=== PATIENT | male | born 1970 | race Caucasian/White ===

== ENCOUNTER 2016-11-11 19:32 | Emergency (ER) | payer OTHER ==
[~2016-11-11] VITALS: Ht 180.3 cm; Wt 84.7 kg
[2016-11-11 19:34] VITALS: TEMP 36.8; Ht 180.3 cm; Wt 84.7 kg
[2016-11-11] MEDS ORDERED: XYLOCAINE 1%/SOD BICARB 20 ML VIAL INFIL ONE (20:00)
[2016-11-11] MEDS ORDERED: CEPHALEXIN 500MG HOME PACK 1 EA BTL PO ONE (20:00)
--- NOTE | 2016-11-11 20:41 | DIAGNOSTIC IMAGING REPORT ---
HEAD WITHOUT CONTRAST (CT) CLINICAL HISTORY: 46 years-old Male with CHI, large forehead lac. TECHNIQUE: Multiple axial CT images of the head were obtained without contrast. A dose lowering technique was utilized adhering to the principles of ALARA. CT DOSE: 1647.88 mGycm COMPARISON: None. FINDINGS: No acute intracranial hemorrhage, midline shift, mass, large territorial ischemia or abnormal extra-axial collection. The calvarium is intact. The mastoid air cells, and middle ear cavities are clear.There is mild mucosal thickening of the ethmoid air cells and right maxillary sinus. Laceration of the central and right paracentral prefrontal soft tissues is noted with several radiopaque foreign bodies seen measuring up to 2-3 mm. There is moderate forehead and nasal bridge soft tissue swelling. Additionally, there is an apparent right nasal bone fracture, only partially imaged. IMPRESSION: 1. No acute intracranial abnormality. 2. Central and right paracentral frontal scalp laceration with several radiopaque foreign bodies measuring up to 2-3 mm. No calvarial fracture. 3. Apparent partially imaged right nasal bone fracture. The above report was generated using voice recognition software. It may contain grammatical, syntax or spelling errors. Electronically signed by: Joo Raza M.D. 11/11/2016 8:40 PM Dictated Date/Time: 11/11/2016 8:36 PM
[2016-11-11] MEDS ORDERED: CEPH500C PO (21:08)
--- NOTE | 2016-11-11 21:10 | EMERGENCY ROOM VISIT NOTE ---
History First contact with patient: 19:39 Chief Complaint: LACERATION/CUT (SUT/DERMABOND) Stated Complaint: HEAD WOUND/GASH TO [facility] Nursing Triage Summary: Pt was in the [place] and went to take a step, slipped and hit head off of rock. History of Present Illness The patient is a 46 year old male who presents to the Emergency Room with complaints of a large forehead laceration after splitting it wide open well getting into a pool tonight. 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 When he went to step into the backyard pool, he slipped and fell, hitting his head on a sharp rock. The patient denies any loss of consciousness or neck pain. He does report a mild frontal headache rated a 3 out of 10. Tetanus immunization is up-to-date. Review of Systems 10 system review was performed and was negative except for pertinent positives and negatives as indicated in history of present illness Past Medical/Surgical History Medical Problems: (1) Alcohol Abuse-Unspec (2) Bipolar Affective Nos Surgical Problems: (1) No history of previous surgery Family History Unremarkable Social History Smoking Status: Former Smoker Alcohol Use: occasionally Marital Status: Housing Status: lives with family Occupation Status: employed Current/Historical Medications Scheduled Cephalexin Monohydrate (Keflex), 500 MG PO TID Physical Exam Vital Signs Date Time Temp Pulse Resp B/P (MAP) Pulse Ox O2 Delivery O2 Flow Rate FiO2 11/11/16 19:34 36.8 91 20 172/97 98 Room Air Physical Exam CONSTITUTIONAL: Healthy and well nourished. Alert and oriented X 3 with positive affect. GCS 15. HEENT: Examination shows a large 8 cm vertical forehead laceration measuring. Pupils equal, round and reactive. No epistaxis, soak and abdominal hemorrhage, raccoon's eyes, Schmid sign or hemotympanum. NECK: Full active range of motion without discomfort. MUSCULOSKELETAL: Full range of motion of all joints without discomfort. INTEGUMENTARY: No rash or other significant dermatologic conditions noted. NEUROLOGIC: Cranial nerves II-XII grossly intact. No focal neurologic deficits noted. No ataxia. No pronator drift. Medical Decision & Procedures ER Provider Diagnostic Interpretation: Noncontrast CT of the head does not show any intracranial bleed or skull fracture. Several radiopaque foreign bodies are noted in the wound. A possible nasal bone fracture is also noted. Radiologist report is as follows: HEAD WITHOUT CONTRAST (CT) CLINICAL HISTORY: 46 years-old Male with CHI, large forehead lac. TECHNIQUE: Multiple axial CT images of the head were obtained without contrast. A dose lowering technique was utilized adhering to the principles of ALARA. CT DOSE: 1647.88 mGycm COMPARISON: None. FINDINGS: No acute intracranial hemorrhage, midline shift, mass, large territorial ischemia or abnormal extra-axial collection. The calvarium is intact. The mastoid air cells, and middle ear cavities are clear.There is mild mucosal thickening of the ethmoid air cells and right maxillary sinus. Laceration of the central and right paracentral prefrontal soft tissues is noted with several radiopaque foreign bodies seen measuring up to 2-3 mm. There is moderate forehead and nasal bridge soft tissue swelling. Additionally, there is an apparent right nasal bone fracture, only partially imaged. IMPRESSION: 1. No acute intracranial abnormality. 2. Central and right paracentral frontal scalp laceration with several radiopaque foreign bodies measuring up to 2-3 mm. No calvarial fracture. 3. Apparent partially imaged right nasal bone fracture. Procedure Laceration repair was performed under local anesthesia after receiving verbal consent from the patient. Using buffered 1% lidocaine without epinephrine, good local anesthesia was administered. The wound was peripherally cleansed with iodine, then copiously pressure irrigated with normal saline. The patient did have several small rocks near the margin of the wound that were removed. Further exploration of the wound does not show any underlying foreign debris. No underlying galea laceration noted. There was good hemostasis. The wound was then approximated using a combination of 5-0 and 6-0 nylon simple interrupted sutures 11. Bacitracin pressure dressing was applied. ED Course Patient history and physical exam were performed. Nurse's notes were reviewed. Vital signs were reviewed, showing a blood pressure of 172/97. Noncontrast CT of the head was normal. Laceration repair was performed under local anesthesia. The patient was provided a home pack and prescription for Keflex. He was encouraged to take ibuprofen and Tylenol as needed for pain. Suture removal in 5-7 days, or seek reevaluation sooner for any signs of wound infection. Return to the emergency department for any significantly worsening headache, vomiting, unusual drowsiness, coordination problems or other symptoms related to this head injury. The patient was happy with plan of care, and denied any significant discomfort at the time of discharge. Medical Decision Head Trauma GCS Score: 15 Blood Pressure Screening Patient's blood pressure: Normal blood pressure Impression Primary Impression: Laceration of face, complicated Additional Impression: Nasal bone fracture Departure Information Prescriptions Cephalexin Monohydrate (Keflex) 500 Mg Cap 500 MG PO TID for 7 Days, #21 CAP Prov: Raffaele Zavala PA 11/11/16 Referrals No Doctor, Assigned (PCP) Patient Instructions [facility] Problem Qualifiers Primary Impression: Laceration of face, complicated Encounter type: initial encounter Qualified Codes: S01.81XA - Laceration without foreign body of other part of head, initial encounter Additional Impression: Nasal bone fracture Encounter type: initial encounter Fracture type: closed Qualified Codes: S02.2XXA - Fracture of nasal bones, initial encounter for closed fracture
[2016-11-11 21:16] VITALS: BP 122/70; PULSE 88; O2SAT 98
[2016-12-01] MEDS ORDERED: DPKEC500 PO (09:16)
[2016-12-01] MEDS ORDERED: RISP-99 PO (09:16)
== END 2016-11-11 21:17 | disposition home or self-care (01) ==
LOC: C.EDB 19:34 → C.EDD 21:17
DX: S01.81XA Laceration without foreign body of other part of head, initial encounter (principal); S02.2XXA Fracture of nasal bones, initial encounter for closed fracture; W19.XXXA Unspecified fall, initial encounter; F10.10 Alcohol abuse, uncomplicated; F31.9 Bipolar disorder, unspecified; Z87.891 Personal history of nicotine dependence

== ENCOUNTER 2016-11-16 19:05 | Emergency (ER) | payer OTHER ==
[~2016-11-16] VITALS: Ht 180.3 cm; Wt 82.6 kg
[~2016-11-16 19:05] MED LIST: CEPH500C PO
[2016-11-16 19:12] VITALS: Ht 180.3 cm; Wt 82.6 kg
[2016-11-16] MEDS ORDERED: IBUP-103 PO (19:28)
[2016-11-16 20:05] LABS: BASO % 0.5 %; BASO ABS # 0.03 K/uL (0-0.2); COMPLETE YES; EOS % 4.5 %; HEMATOCRIT 41.4 % (42-52); IG% 0.2 %; LYMPH % 31.2 %; LYMPH ABS # 1.81 K/uL (1.2-3.4); MEAN CELL VOLUME 87.5 fL (80-100); MEAN CORPUSCULAR HEMOGLOBIN 30.4 pg (25-34); MEAN CORPUSCULAR HGB CONC 34.8 g/dl (32-36); MEAN PLATELET VOLUME 9.2 fL (7.4-10.4); NEUT % 53.6 %; PLATELET COUNT 249 K/uL (130-400); RED BLOOD COUNT 4.73 M/uL (4.7-6.1); WHITE BLOOD COUNT 5.81 K/uL (4.8-10.8)
[2016-11-16] MEDS ORDERED: MoRPHine SULFATE 4 MG/ML 1 ML CARP\\VIAL IV STA ×2 (20:11→22:26)
[2016-11-16] MEDS ORDERED: ONDANSETRON INJ 2 MG/ML 2 ML VIAL IV STA (20:11)
[2016-11-16 20:21] LABS: BUN/CREATININE RATIO 18.6 (10-20); CALCIUM 9.4 mg/dl (8.5-10.1); POTASSIUM 3.5 mmol/L (3.5-5.1)
[2016-11-16] MEDS ORDERED: OPTIRAY 320 IV PRN (21:30)
--- NOTE | 2016-11-16 21:39 | DIAGNOSTIC IMAGING REPORT ---
FACIAL-MAXILLOFACIAL WITH CLINICAL HISTORY: Increasing signs of infection over R frontal area. COMPARISON STUDY: Head CT November 11, 2016. TECHNIQUE: Axial images through the face were obtained following intravenous injection of 115 cc of Optiray 320 IV. Coronal and sagittal reformats were viewed. FINDINGS: Visualized portions of the intracranial contents are unremarkable. Mastoid air cells are clear. There is mild polypoid mucosal thickening within the maxillary sinuses. Orbits are unremarkable. There are multiple dental caries and absent teeth. There is an age indeterminate mildly displaced right nasal bone fracture. Note is made of interval increase in frontal soft tissue swelling since CT of November 11, 2016 at site of laceration. Immediately deep to this laceration, there has been interval development of a 3.9 x 3.5 x 1.2 cm fluid collection. This collection has at most minimal rim enhancement. A few associated radiodensities measure up to 3 mm and suggest foreign bodies. There is no soft tissue gas. No additional fluid collections are present. Globes are intact. IMPRESSION: 1. Increase in frontal soft tissue swelling with interval development of a 3.9 x 3.5 x 1.2 cm subcutaneous fluid collection at site of laceration shown on head CT of November 11, 2016. At most, minimal peripheral enhancement of this collection. Sterility of this collection cannot be assessed by CT and this could reflect an abscess or sterile fluid collection. A few associated radiodensities, measuring up to 3 mm, are suggestive of foreign bodies. 2. Age indeterminate minimally displaced right nasal bone fracture. Electronically signed by: Pancho Allan M.D. 11/16/2016 9:38 PM Dictated Date/Time: 11/16/2016 9:26 PM
[2016-11-16] MEDS ORDERED: AMPICILLIN/SULBACTAM SOD INJ 3,000 MG in SODIUM CHLORIDE 0.9% 100ML 100 ML IV STA (21:49)
[2016-11-16] MEDS ORDERED: LIDOCAINE/EPINEPHRINE 1% 20 ML VIAL INFIL ONE (22:30)
[2016-11-16] MEDS ORDERED: CIPROFLOXACIN 500MG HOME PACK PO ONE (23:15)
[2016-11-16] MEDS ORDERED: CIPR1TAB10 PO (23:23)
[2016-11-16] MEDS ORDERED: HYDR-5688 PO (23:23)
[2016-11-16 23:27] VITALS: TEMP 37
[2016-11-16] MEDS ORDERED: MoRPHine SULFATE 4 MG/ML 1 ML CARP\\VIAL IV PRN (23:30)
--- NOTE | 2016-11-17 00:28 | CONSULTATION REPORT ---
DATE OF CONSULTATION: 11/16/2016 I was consulted by the Emergency Department for evaluation of this patient. HISTORY OF PRESENT ILLNESS: He is a 46-year-old male, who presented to the Emergency Department, initially, 5 days ago after sustaining a fall. 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 He states he slipped on a rock and was waist deep in water when he slipped and fell, striking his head on a rock. At that time, he presented to the Emergency Department for evaluation and had head CT, which showed age-indeterminant nasal fracture, but otherwise, no sternal bone fractures. He underwent a washout and repair of a laceration, which measured approximately 10 cm, of his forehead and was started on Keflex. He states that he went home following this and took the Keflex, drank some Budweiser and used Motrin to help with pain symptoms. However, today he started noticed sitting fevers and chills and shakiness as well as significant swelling of the forehead. He states he was able to apply pressure to the area and express some purulent-type material. He has received a dose of Unasyn in the ER. REVIEW OF SYSTEMS: As above and positive for fevers and chills as well as skin infection. NKDA No medications other than Tylenol or Motrin prn, Keflex as prescribed by ER PAST MEDICAL HISTORY: Includes alcohol abuse and bipolar disorder. PAST SURGICAL HISTORY: There is no prior surgical history, other than repair of this laceration. SOCIAL HISTORY: He states that he uses alcohol, but is a nonsmoker and does not use any drugs. He works as a contractor. PHYSICAL EXAMINATION: GENERAL: Shows a 46-year-old male, in no acute distress. He appears healthy. afebrile, pulse 82, BP 157/102 HEAD AND NECK EXAMINATION: Shows an approximately 8-cm vertical laceration extending over the right eyebrow. There is a large approximately 5-cm area of induration with significant fluctuance and surrounding erythema. The sutures appear intact. PSYCHIATRIC: He is awake, alert and oriented. DATA: Review of the CT scan, initially, following the injury as well as today's scan shows that there may be some small 2-mm radiopaque foreign bodies located in the wound. Possible nasal fracture. Otherwise, no head injury or skull fracture. Today's CT scan also shows a sizable fluid collection, about 3.5 x 1.5 cm, questionably an abscess versus hematoma or other fluid collection. LABORATORY STUDIES: White blood cell count is 5.8, hemoglobin 14. Creatinine 1. IMPRESSION: Abscess, status post a traumatic forehead laceration. PLAN: The plan was discussed with the Emergency Department physician and physician's commercial assistant. He has received a dose of Unasyn already. Discussed whether washout in the operating room versus an attempted bedside washout would be appropriate. Given that the laceration repair, overall, seems quite good and there is a well-defined collection, I feel it would be reasonable to attempt a bedside drainage. Verbal consent was obtained from the patient. PROCEDURE NOTE: The skin was prepped with Betadine and drapes were placed. 1% lidocaine with epinephrine was used to anesthetize the area. Upon injection of local anesthesia, already there was some release of purulent material. I removed three of the cephalad and two of the caudad sutures, which allowed for copious amounts of purulent drainage. A culture was obtained. A hemostat was used to spread open the collection and copious pus was drained. At this point, a pulse vehicle delivery worker was used to copiously irrigate the wound under pressure from both open ends of the laceration. A quarter inch piece of Nu Gauze was then passed through the abscess cavity, leaving a wick at each end. An Optifoam dressing was then placed. The procedure was tolerated well. I discussed with the ER physician having the patient receive an additional dose of Unasyn today. He should follow up in my office on Thursday to have the packing removed. We also discussed sending him home on an additional antibiotic, such as Cipro, to cover any waterborne types of bacteria, such as aeromonas. We also discussed whether fully opening the laceration and attempting to look for foreign bodies was feasible and in most cases, these are very difficult to remove and therefore, I felt irrigation under pressure would be a reasonable option. All of the patient's questions were answered. He was satisfied with the care and will follow up with us in the office on Thursday. RYLAND
--- NOTE | 2016-11-17 00:31 | EMERGENCY ROOM VISIT NOTE ---
ED Visit Note First contact with patient: 19:20 Pt seen/examined at bedside. Evidence of erythema/edema surrounding laceration from recent head injury. I discussed the case with the primary PA on several occasions and then examined the pt at bedside. I assisted the plastic surgeon with wound irrigation and placement of a wick to help with drainage. Pt to be observed for a few hours to get a repeat dose of IV antibiotics and then will be discharged to follow-up with Dr. Palomares on Thursday.
[2016-11-17] MEDS ORDERED: AMPICILLIN/SULBACTAM SOD INJ 3,000 MG in SODIUM CHLORIDE 0.9% 100ML 100 ML IV ONE (04:15)
[2016-11-17 04:54] VITALS: BP 137/81; PULSE 71; O2SAT 96
--- NOTE | 2016-11-17 23:53 | EMERGENCY ROOM VISIT NOTE ---
ED Visit Note First contact with patient: 19:20 Chief Complaint: I think my laceration is infected and I been having drainage out of it. History of Present Illness: Mr. Dobbs is a 46-year-old white male who relates into the ED accompanied by his mother complaining of a possible wound infection. Patient reports 5 days ago he slipped and fell in a local [place] and struck his head on a rock. He sustained a large right frontal laceration. He came to the emergency department and was examined. An CAT scan of the head was performed that shows no signs of head injury or fractures. His 10 cm laceration was repaired. He was discharged home in stable condition on Keflex for antibiotic coverage. Patient reports since being discharged he has noted some increasing swelling and tenderness to the area of his laceration. Today he started having chills and has a self proceed fever. He bent forward and saw small amount of drainage out of the wound and then applied pressure and reported he is able to express a large amount of purulent material. This is associated with an increasing pain in the area of his laceration. He describes that as a throbbing and pressure sensation. He rates his discomfort 7 /10. His pain is nonradiating. His pain worsens with palpation of his laceration and immediate area around his laceration. He has not identified any alleviating factors related to the pain. He has been taken ibuprofen with minimal relief of his discomfort. Associated with his pain he is also reporting that he has a mild headache in the same location. He denies dizziness, lightheadedness, abnormal neurological symptoms, difficult speaking, difficulty swallowing, difficulty ambulating, neck pain, chest pain, shortness of breath, abdominal pain, decreased appetite, nausea/vomiting. Review of Systems: As noted above in history of present illness. 8 body systems were reviewed and found to be negative as noted above. Past Medical History: Bipolar disorder. Current Medications: Ibuprofen. Allergies to Medications: Patient denies. Social History: Patient is currently employed; he feels safe in his home environment; he denies tobacco use; he admits to alcohol use. Physical Examination: Vital Signs: Date Time Temp Pulse Resp B/P (MAP) Pulse Ox O2 Delivery O2 Flow Rate FiO2 11/17/16 04:54 71 16 137/81 96 11/17/16 04:00 71 16 136/95 97 Room Air 11/17/16 01:59 80 16 141/92 97 Room Air 11/16/16 23:27 37.0 82 16 157/102 97 Room Air 11/16/16 19:12 36.7 93 18 149/102 97 Room Air GENERAL: 46-year-old male in mild to moderate distress due to pain, nontoxic- appearing, afebrile and hemodynamically stable. NEUROLOGICAL: Awake, alert and oriented to person, place and time. Answering questions appropriately and following commands. Normal gait. Good hand eye coordination. No focal motor sensory deficits. SKIN: Warm, dry and pink. Forehead: Patient's laceration is clean dry and intact. Surrounding the laceration specifically just medial and inferior to the laceration patient has a largest amount of swelling with erythema. This area is fluctuant and warm to the touch. HEENT: Skull: Atraumatic and normocephalic. No raccoon's eyes or waterman signs. No drainage from the ears or the nostril; no hemotympanum. Face: Please note above under SKIN. No bony deformity. No bony tenderness or crepitus. PERRLA. EOMI without nystagmus. Sclera white and conjunctiva pink. Airway is patent. Speech is normal. No local lymphadenopathy. Trachea midline. No jugular venous distention. BACK: No tenderness over the bony cervical spine. Full range of motion of the cervical spine. THORAX: Lungs sounds are clear to auscultation and equal bilaterally with symmetrical chest wall. ABDOMEN: Flat, soft and nontender. Positive bowel sounds in all quadrants. EXTREMITIES: Moves all extremities well on command and with purpose. All distal neurovascular statuses are intact and equal bilaterally. ED Course: Patient is assessed as noted above. Patient's medication list was reviewed. Laboratory Testing: Test 11/16/16 19:45 Range/Units White Blood Count 5.81 4.8-10.8 K/uL Red Blood Count 4.73 4.7-6.1 M/uL Hemoglobin 14.4 14.0-18.0 g/dL Hematocrit 41.4 42-52 % Mean Corpuscular Volume 87.5 80-100 fL Mean Corpuscular Hemoglobin 30.4 25-34 pg Mean Corpuscular Hemoglobin Concent 34.8 32-36 g/dl Platelet Count 249 130-400 K/uL Mean Platelet Volume 9.2 7.4-10.4 fL Neutrophils (%) (Auto) 53.6 % Lymphocytes (%) (Auto) 31.2 % Monocytes (%) (Auto) 10.0 % Eosinophils (%) (Auto) 4.5 % Basophils (%) (Auto) 0.5 % Neutrophils # (Auto) 3.12 1.4-6.5 K/uL Lymphocytes # (Auto) 1.81 1.2-3.4 K/uL Monocytes # (Auto) 0.58 0.11-0.59 K/uL Eosinophils # (Auto) 0.26 0-0.5 K/uL Basophils # (Auto) 0.03 0-0.2 K/uL RDW Standard Deviation 42.2 36.4-46.3 fL RDW Coefficient of Variation 13.0 11.5-14.5 % Immature Granulocyte % (Auto) 0.2 % Immature Granulocyte # (Auto) 0.01 0.00-0.02 K/uL Sodium Level 140 136-145 mmol/L Potassium Level 3.5 3.5-5.1 mmol/L Chloride Level 105 98-107 mmol/L Carbon Dioxide Level 31 21-32 mmol/L Anion Gap 4.0 3-11 mmol/L Blood Urea Nitrogen 19 7-18 mg/dl Creatinine 1.00 0.60-1.40 mg/dl Est Creatinine Clear Calc Drug Dose 97.2 ml/min Estimated GFR () 103.4 Estimated GFR (Non- 89.2 BUN/Creatinine Ratio 18.6 10-20 Random Glucose 90 70-99 mg/dl Calcium Level 9.4 8.5-10.1 mg/dl Gram Stain and Culture: Pending. Blood Cultures: Pending. Facial CT with IV Contrast: Was reviewed by myself and read by the radiologist and shows Increased frontal soft-tissue selling with interval development of 3.9 x 3.5 x 1.2 cm subcutaneous fluid collection with minimal peripheral enhancement. Additionally noted were few associated radio opaque densities measuring up to 3 millimeters suggestive of foreign bodies. Radiologist also notes an age and her tenderness lead displaced right nasal bone fracture that was seen on previous. An IV lock was initiated and patient was hydrated with normal saline and he received a total of 8 mg of morphine IV for pain, 4 mg of Zofran IV and 3 g of Unasyn IV for antibiotic coverage. Patient was reassessed multiple times during his stay in the emergency department. Patient's case was reviewed with Dr. Ferris; she in apparently assessed the patient we agreed on diagnostic approach, treatment, disposition and plan. Patient's case was consulted with Dr. Trixie Palomares, plastic surgery/facial surgery; she came to the emergency department to see the patient and performed an drainage and irrigation procedure to the patient. Patient stayed in the emergency department for a couple hours and received a second dose of 3 g of Unasyn IV for antibiotic coverage. Patient was educated about today's findings and instructed on his treatment plan ; he verbalized understanding and agreement with this plan. Clinical Impression: Wound infection. Disposition: Patient was discharged home in stable condition accompanied by his mother; prior to departure he was reassessed and subjectively reported he was feeling much better and rated his discomfort 2/10. Plan: Comfort measures were discussed with the patient including a sliding pain medication scale of ibuprofen, acetaminophen and [place]; appropriate narcotic precautions were discussed with the patient and his name was checked on state database and no red flags were noted. Patient was prescribed ciprofloxacin 500 mg 2 times a day for 7 days and he was encouraged to continue his Keflex until completed. Patient was encouraged to keep his bandaging in place until follow-up with Dr. Palomares. Patient is encouraged to contact Dr. Palomares's office for follow-up visit this Thursday. Patient was educated on signs of infection and encouraged return ED for any worsening signs of infection or any new/concerning symptoms.
--- NOTE | 2016-11-20 11:13 | Pharmacy Progress Note ---
ED Pharmacist Culture FollowUp Date of Service: Nov 20, 2016. Wound culture of forehead laceration is growing 2 organisms: aeromonas hydrophila grp and serratia fonticola. He was seen in the ER on 11/16 for fever, chills, erythema and induration of forehead + purulent material expressed from laceration. Abscess was drained in ER and he was placed on Cipro 500mg PO BID x 7 days in addition to continuing Keflex 500mg PO BID. He was to f/u with Romero Palomares on which he did. On the f/u visit the erythema and induration had improved but was still draining purulent material. Another wick was placed at that visit and he was admitted to [facility] for mental health evaluation. At this time he is still admitted to [facility] receiving Keflex + Cipro. The current abx therapy should cover the organisms growing in this culture. Therefore no further action required from ED perspective at this point.
[2016-12-01] MEDS ORDERED: DPKEC500 PO (09:16)
[2016-12-01] MEDS ORDERED: RISP-99 PO (09:16)
== END 2016-11-17 04:54 | disposition home or self-care (01) ==
LOC: C.EDB 19:06 → C.EDA 11-17 04:54
DX: L02.811 Cutaneous abscess of head [any part, except face] (principal); T81.4XXA Infection following a procedure, initial encounter; Y84.8 Other medical procedures as the cause of abnormal reaction of the patient, or of later complication, without mention of misadventure at the time of the procedure

== ENCOUNTER 2016-11-18 18:05 | Inpatient (IN) | payer OTHER ==
[~2016-11-18] VITALS: Ht 180.3 cm; Wt 79.5 kg
[~2016-11-18 18:05] MED LIST changes: +CIPR1TAB10 PO; +HYDR-5688 PO; +IBUP-103 PO
--- NOTE | 2016-11-18 19:00 | EMERGENCY ROOM VISIT NOTE ---
History Report prepared by Angela: Magdalene Lewis Under the Supervision of: Dr. Carmita Villeda M.D. First contact with patient: 18:35 Chief Complaint: MENTAL HEALTH EVALUATION Stated Complaint: [facility] History of Present Illness The patient is a 46 year old male who presents to the Emergency Room with complaints of generalized illness beginning this morning. The patient states he "is done talking and sick of this". The patient states he had trouble finding the doctors office this morning which caused him to "flip out". He also notes that he is having an overall global aching, abdominal pain and denies eating all day. He states that he was at the ED a week ago after he hit his head from a fall. He also states he got "blood infection" from the head injury. The patient states he has a history of anxiety. The patient states that "if he didn' t believe in God he would be ". The patient denies thinking about hurting himself. He states his girlfriend has told him to go to counseling. The patient states in the past when he was given pain medication he "self medicated" by mixing his pain medications with drinking. The patient denies seeing a psychiatrist and states that he's "been beating himself up mentally". Source of History: patient Onset: this morning Position: other (generalized) Timing: other (persistent) Associated Symptoms: + abdominal pain Note: Pt denies eating all day.Pt denies thinking about hurting himself. Review of Systems See HPI for pertinent positives & negatives. A total of 10 systems reviewed and were otherwise negative. Past Medical & Surgical Medical Problems: (1) Alcohol Abuse-Unspec (2) Bipolar Affective Nos (3) Bipolar disorder, unspecified (4) Cannabis abuse (5) Laceration (6) Opiate misuse Surgical Problems: (1) No history of previous surgery Social History Problems: (1) Alcohol abuse Family History no pertinent family history stated Social History Smoking Status: Current Every Day Smoker Alcohol Use: occasionally Marital Status: Housing Status: lives with family Occupation Status: employed Current/Historical Medications Scheduled Cephalexin (Keflex), 1 CAP PO BID Ciprofloxacin Hcl (Cipro), 500 MG PO BID Ibuprofen Tab (Advil), 400-600 MG PO Q6H Scheduled PRN Hydrocodone/Acetaminophen 5MG/325MG ([place] 5MG/325MG), 1-2 TABLET PO Q6H PRN for Pain Allergies Coded Allergies: Dust (Verified Allergy, Unknown, 11/18/16) Physical Exam Vital Signs Date Time Temp Pulse Resp B/P (MAP) Pulse Ox O2 Delivery O2 Flow Rate FiO2 11/18/16 20:20 102 18 124/95 98 Room Air 11/18/16 18:10 36.7 71 20 151/85 96 Room Air Physical Exam Vital signs reviewed. General: Well-appearing male, in no significant distress. HEENT: No scleral icterus, PERRLA, neck supple. Laceration with sutures in place to forehead, mild erythema, bandage in place. Cardiovascular: Regular rate and rhythm, no extra sounds. Pulmonary: Clear to auscultation bilaterally, normal work of breathing. Abdomen: Soft, nontender, nondistended, positive bowel sounds. Musculoskeletal: Atraumatic, no peripheral edema. Neurologic: Patient awake alert and oriented x 3, full strength in all 4 extremities. Cranial nerves 2 through 12 grossly intact. Skin: Warm, dry, no rash Psych: Denies homicidal and suicidal ideation, Pt states he's "in trouble." Medical Decision & Procedures Laboratory Results 11/18/16 19:20 Red Blood Count 4.99, Mean Corpuscular Volume 85.8, Mean Corpuscular Hemoglobin 30.3, Mean Corpuscular Hemoglobin Concent 35.3, Mean Platelet Volume 9.0, Neutrophils (%) (Auto) 62.1, Lymphocytes (%) (Auto) 26.9, Monocytes (%) (Auto) 8.0, Eosinophils (%) (Auto) 2.6, Basophils (%) (Auto) 0.2, Neutrophils # (Auto) 3.12, Lymphocytes # (Auto) 1.35, Monocytes # (Auto) 0.40, Eosinophils # (Auto) 0.13, Basophils # (Auto) 0.01 11/18/16 19:20 Test 11/18/16 18:15 11/18/16 19:20 Urine Color YELLOW Urine Appearance CLEAR (CLEAR) Urine pH 5.5 (4.5-7.5) Urine Specific [place] 1.023 (1.000-1.030) Urine Protein NEG (NEG) Urine Glucose (UA) NEG (NEG) Urine Ketones NEG (NEG) Urine Occult Blood NEG (NEG) Urine Nitrite NEG (NEG) Urine Bilirubin NEG (NEG) Urine Urobilinogen NEG (NEG) Urine Leukocyte Esterase NEG (NEG) Urine Opiates Screen POS (NEG) Urine Methadone, Qualitative NEG (NEG) Urine Barbiturates NEG (NEG) Urine Phencyclidine (PCP) Level NEG (NEG) Ur Amphetamine/Methamphetamine NEG (NEG) MDMA (Ecstasy) Screen NEG (NEG) Urine Benzodiazepines Screen NEG (NEG) Urine Cocaine Metabolite NEG (NEG) Urine Marijuana (THC) NEG (NEG) White Blood Count 5.02 K/uL (4.8-10.8) Red Blood Count 4.99 M/uL (4.7-6.1) Hemoglobin 15.1 g/dL (14.0-18.0) Hematocrit 42.8 % (42-52) Mean Corpuscular Volume 85.8 fL (80-100) Mean Corpuscular Hemoglobin 30.3 pg (25-34) Mean Corpuscular Hemoglobin Concent 35.3 g/dl (32-36) Platelet Count 236 K/uL (130-400) Mean Platelet Volume 9.0 fL (7.4-10.4) Neutrophils (%) (Auto) 62.1 % Lymphocytes (%) (Auto) 26.9 % Monocytes (%) (Auto) 8.0 % Eosinophils (%) (Auto) 2.6 % Basophils (%) (Auto) 0.2 % Neutrophils # (Auto) 3.12 K/uL (1.4-6.5) Lymphocytes # (Auto) 1.35 K/uL (1.2-3.4) Monocytes # (Auto) 0.40 K/uL (0.11-0.59) Eosinophils # (Auto) 0.13 K/uL (0-0.5) Basophils # (Auto) 0.01 K/uL (0-0.2) RDW Standard Deviation 40.3 fL (36.4-46.3) RDW Coefficient of Variation 12.9 % (11.5-14.5) Immature Granulocyte % (Auto) 0.2 % Immature Granulocyte # (Auto) 0.01 K/uL (0.00-0.02) Anion Gap 5.0 mmol/L (3-11) Est Creatinine Clear Calc Drug Dose 97.2 ml/min Estimated GFR () 103.4 Estimated GFR (Non- 89.2 BUN/Creatinine Ratio 14.7 (10-20) Calcium Level 9.3 mg/dl (8.5-10.1) Total Bilirubin 1.1 mg/dl (0.2-1) Direct Bilirubin 0.2 mg/dl (0-0.2) Aspartate Amino Transf (AST/SGOT) 23 U/L (15-37) Alanine Aminotransferase (ALT/SGPT) 30 U/L (12-78) Alkaline Phosphatase 67 U/L (45-117) Total Protein 7.6 gm/dl (6.4-8.2) Albumin 3.5 gm/dl (3.4-5.0) Thyroid Stimulating Hormone (TSH) 1.160 uIu/ml (0.300-4.500) Salicylates Level < 1.7 mg/dl (2.8-20) Acetaminophen Level < 2 ug/ml (10-30) Ethyl Alcohol mg/dL < 3.0 mg/dl (0-3) Laboratory results per my review. ED Course 184: Past medical records reviewed. The patient was evaluated in room A7. A complete history and physical examination was performed. 2199: Patient was admitted to [facility] acute care. Medical Decision Differential diagnosis: Etiologies such as mood disorder, infection, hypoglycemia, electrolyte abnormalities, cardiac sources, intracerebral event, toxicologic, neurologic, as well as others were entertained. This pt was evaluated and felt to be in need of evaluation. He was medically cleared and evaluated by the psych embedded case manager. Pt was accepted by for admission on a voluntary basis. Medication Reconcilliation Current Medication List: was personally reviewed by me Blood Pressure Screening Patient's blood pressure: Normal blood pressure Blood pressure disposition: Did not require urgent referral Impression Primary Impression: Mood disorder Scribe Attestation The scribe's documentation has been prepared under my direction and personally reviewed by me in its entirety. I confirm that the note above accurately reflects all work, treatment, procedures, and medical decision making performed by me. Departure Information Dispostion Mental [facility] Acute Care Referrals Rayshawn Rehman M.D. (PCP) Forms HOME CARE DOCUMENTATION FORM, IMPORTANT VISIT INFORMATION Patient Instructions My [facility]
[2016-11-18 19:11] LABS: URINE APPEARANCE CLEAR (CLEAR); URINE BILIRUBIN NEG (NEG); URINE COLOR YELLOW; URINE NITRITE NEG (NEG); URINE PH 5.5 (4.5-7.5); URINE SPECIFIC GRAVITY 1.023 (1.000-1.030); UROBILINOGEN NEG (NEG); ZZUR CULT IF INDIC CLEAN CATCH NO
[2016-11-18 19:12] LABS: MANUAL MICROSCOPIC REQUIRED? NO; REVIEW REQ? NO
[2016-11-18 19:43] LABS: BENZODIAZEPINE, URINE NEG (NEG); COCAINE,URINE NEG (NEG); PHENCYCLIDINE, URINE NEG (NEG)
[2016-11-18 19:48] LABS: BASO % 0.2 %; BASO ABS # 0.01 K/uL (0-0.2); COMPLETE YES; EOS % 2.6 %; HEMATOCRIT 42.8 % (42-52); IG% 0.2 %; LYMPH % 26.9 %; LYMPH ABS # 1.35 K/uL (1.2-3.4); MEAN CELL VOLUME 85.8 fL (80-100); MEAN CORPUSCULAR HEMOGLOBIN 30.3 pg (25-34); MEAN CORPUSCULAR HGB CONC 35.3 g/dl (32-36); NEUT % 62.1 %; PLATELET COUNT 236 K/uL (130-400); RED BLOOD COUNT 4.99 M/uL (4.7-6.1); WHITE BLOOD COUNT 5.02 K/uL (4.8-10.8)
[2016-11-18 20:06] LABS: BUN/CREATININE RATIO 14.7 (10-20); CALCIUM 9.3 mg/dl (8.5-10.1); POTASSIUM 3.8 mmol/L (3.5-5.1)
[2016-11-18 20:17] LABS: THYROID STIMULATING HORMONE 1.16 uIu/ml (0.300-4.500)
[2016-11-18 20:24] LABS: ACETAMINOPHEN < 2 ug/ml (10-30)
[2016-11-18] MEDS ORDERED: NURSING VERBAL MED ORDER ONE (22:00)
[2016-11-18 22:10] VITALS: O2SAT 99
[2016-11-18] MEDS ORDERED: ALUMINUM/MAGNESIUM SUSP 30 ML UDC PO PRN (22:30)
[2016-11-18] MEDS ORDERED: MAGNESIUM HYDROXIDE SUSP 30 ML UDC PO PRN (22:30)
[2016-11-18] MEDS ORDERED: SODIUM CHLORIDE 0.65% NA SOLN 45 ML (OCEAN) PRN (22:30)
[2016-11-18] MEDS ORDERED: BISMUTH SUBSALICYLATE PER ML OMNICELL CHARGE PO PRN (22:30)
[2016-11-18] MEDS ORDERED: hydrOXYzine HCL 25 MG TAB PO PRN ×2 (22:30)
[2016-11-18] MEDS ORDERED: ACETAMINOPHEN 325 MG TAB PO PRN (22:30)
[2016-11-18] MEDS ORDERED: RISPERIDONE 1 MG TAB PO ONE (22:45)
[2016-11-18] MEDS: CIPROFLOXACIN 500 MG TAB PO SCH (22:46)
[2016-11-18] MEDS: CEPHALEXIN MONOHYDRATE 500 MG CAP PO SCH (22:47)
[2016-11-18] MEDS: IBUPROFEN 200 MG TAB PO PRN (22:49)
[2016-11-18 23:24] VITALS: BP 126/72; PULSE 84; TEMP 36.7; BMI 24.4
[2016-11-19 07:09] VITALS: BP_SYST 117; BP_SYST 120; BP_SYST 126; BP_DIAS 72; BP_DIAS 81; PULSE 56; PULSE 78; PULSE 84; TEMP 36.4
[2016-11-19 07:14] VITALS: Ht 180.3 cm; Wt 79.5 kg
--- NOTE | 2016-11-19 08:52 | Psychiatric History & Physical ---
History Date of Service Nov 19, 2016. Identifying Data Patient is a 46 year old male who currently lives in [place] with girlfriend , has a history of bipolar disorder, noncompliance, and polysubstance abuse, is not currently in psychiatric treatment, and presented to the emergency room with police. He endorsed suicidal thoughts with a plan to hang himself and was admitted on a 201 voluntary commitment. Chief Complaint "Just toxl-ptb-aills, been going on my whole life". History of Present Illness Figueroa has had multiple emergency room visits in the past week, initially seen on 11/11 after he slipped in a knik and hit his head and sustained a 10 cm laceration on his forehead, which was sutured and he was started on Keflex. He then returned to the ER 11/16 with forehead swelling, purulent discharge, fever, chills, and shakes, and reported that he been drinking beer. He was seen by Dr. Trixie Palomares, plastic surgeon; his forehead had a 5 cm area of induration with significant fluctuance and surrounding erythema, but sutures were intact, so it was drained at the bedside. Wound culture was obtained, and results show gram-negative bacilli. Blood cultures 2 show pulmonary results of no growth. He was given IV antibiotics in the emergency room, given a prescription for Cipro 500 mg twice a day for 7 days and instructed to complete the course of Keflex as well. He was to follow-up with the plastic surgeon, Dr. Trixie Palomares yesterday, but then re-presented to the emergency room yesterday with police for a mental health evaluation. It was unclear exactly what occurred that resulted in police being called. He reported anxiety, and said that "if he didn't believe in God he would be ," and said he had been "beating himself up mentally". He said he had "self medicated" by mixing his pain medications with drinking in the past. He said his memory wasn't clear and it is a struggle for him to focus. He said he had become distraught when he could not locate the plastic surgeon's office for his follow-up appointment, and said he "got mad and took my shirt off because it was hot. I was having a bad day. I just lost it." He reports being in and out of long-term during his 20's and maybe 30's for "stupid stuff, drinking and being young and stupid." Currently, patient is on no psychiatric medications with no active providers. He currently has no insurance and no benefits from his employer and states he had tried to fill out paperwork in the past, but "it just never happened". He could not recall all of the medications that he tried, but he states he has never taking anything consistently because he did not like the side effects of the medications. Denies any other medical issues and said "I don't like doctors and wouldn't go to them anyways, but my girlfriend wants me to get some help". He was cooperative with the admission interview, but struggled to stay on topic and then stated he didn't want to talk about his history any more. Refused to sign SHASHANK's on admission, saying "If you want information, get it off facebook like everyone else." Agreed to take risperdal 1 mg in hopes it would help with sleep. Reports decreased sleep, due to restlessness, struggles with concentration due to racing thoughts, but reports good appetite. He admitted to drinking beer ("self medicating a couple days a week"), and smoking marijuana , last use on 11/15/2016. His drug screen was positive for opiates. He was noted to be pressured and tangential, but denied hallucinations and thoughts of harming others. He took risperidone 1 mg last night, and slept 5-1/2 hours. Today, the patient was seen in his room where he remains in bed. He is more organized than yesterday, but remains a limited historian. He states that he has struggled with mood lability all his life, and has never wanted treatment, as "this is just me, everyone says I need meds, but I don't think so." He reports frequent mood swings between depressed, euthymic mood, and irritable mood, but is unable to state how often this occurs. He endorses worsening mood recently, in the context of multiple stressors, stating he is hopeless, has negative thoughts, says "the aunts are stacked against you, it is not can get any better, I'm just getting older." Stressors include legal problems, including a felony charge she says he received 13 years ago, claiming he was "set up." He states his father in 1970, and he never had a father figure growing up, his 14-year-old son is doing drugs and getting in trouble, and although he's working, he does not make enough money and there is financial strain. He said "everyone thinks I'm crazy," and goes back and forth between stating he needs to get help, saying "I can't do it on my own, I need help," and stating he does not want treatment. He says he has no idea why he is in the hospital, "just went to the doctor's office and they act like a had a conniption or something." He says he does not know why police were called or why they brought him to the hospital. He says his mother went with him to his plastic surgery appointment yesterday, and he became upset when he could not locate the correct doctor's office. He also says it was very hot out, and he was feeling overwhelmed. He says he was having trouble thinking, and could not fill out the paperwork in the doctor's office. He says he actually saw the doctor, but then the police came and took him to the police station, and then brought him here. He understands he's been diagnosed with bipolar disorder, and describes "roller coaster moods," with frequent highs and lows. He reports poor sleep recently, states he "fights it," and stays up late watching TV. He says his girlfriend has been encouraging him to get treatment, and admits that he's had suicidal thoughts, stating he's had them all his life, and they come and go. He believes in God which is protective, and states "if I didn't believe in God, I'd actually go through with it." He is not sure if he is willing to accept treatment, stating "I'd treat myself, I do therapy for myself , I'm outdoorsy, an adrenaline junkie." He also says "I got to do something about it, can't do it on my own." Spoke with Dr. Palomares who states the patient was agitated and disorganized in their office yesterday, was unable to fill out paperwork, was throwing things and making suicidal statements. He left abruptly, and they then saw him outside walking through the bushes without a shirt on. They had called police, and they accompanied him back into the office where she changed his packing. He initially refused to come to the ER, so they took him to the police station. Past Psychiatric History Current OP Treatment: no current treatment Prior OP Treatment: no prior treatment (patient states that he never followed up with outpatient treatment after his past hospitalizations) Prior Psych Hospitalizations: [facility] (1985), [facility] ( 2002 and 1995) Access to a Gun: Yes (patient states he does have a gun at home, and other family members have guns which he has access to) Suicide Attempts: Yes (He does report one suicide attempt by overdose, but cannot recall any others. ) Past Medication Trials Depakote, escitalopram, paroxetine, sertraline - never took any medications for a significant period of time Additional Notes Previously diagnosed with bipolar disorder not otherwise specified and alcohol dependence Past Medical/Surgical History (1) Laceration (2) Cannabis abuse (3) Opiate misuse (4) Alcohol abuse Allergies Allergies: Coded Allergies: Dust (Verified Allergy, Unknown, 11/18/16) Home Medications Scheduled Cephalexin (Keflex), 1 CAP PO BID Ciprofloxacin Hcl (Cipro), 500 MG PO BID Ibuprofen Tab (Advil), 400-600 MG PO Q6H Scheduled PRN Hydrocodone/Acetaminophen 5MG/325MG ([place] 5MG/325MG), 1-2 TABLET PO Q6H PRN for Pain Family History History of Suicide: No History of Substance Abuse: Yes (son abuses drugs) Psychiatric History: No Alcohol Use Alcohol Use In Past 12 Months: Yes ("Couple days per week," can drink up to a case of beer or a fifth of liquor. Denies a history of withdrawal symptoms.) AUDIT Total Score: 7 Smoking Use Smoking Status: Former Smoker Substance History Smokes marijuana, last use 4 days ago, will not state how frequently he uses. Has a history of abusing pain medications, mixing them with alcohol. Personal History Lives in: [place] with his girlfriend of 1 year Childhood: Born in [place]. Father when he was 1-year-old due to a motorcycle accident. His father's family was initially involved in his life, but then withdrew, which was difficult for him. States that he did "whatever I wanted" growing up. Mother is alive and is supportive. Education: started high school (failed ninth grade, and then dropped out.) Work History: Works as a contractor. Relationship History: other (lives with girlfriend of 1 year) Children: 22-year-old daughter and 14-year-old son Spiritual Affiliation: "I believe in God" Legal History: reported (multiple arrests in the past, including terroristic threats, assault, and felony charges. Has been incarcerated for probation violation.) Psychological Trauma History: Significant Loss, Other (denies abuse) Review of Systems 10 systems reviewed; negative except as stated above. Examination Physical Examination A physical exam was performed in the ER prior to admission to the unit by Dr. Villeda. I accept that physical as correct/medical clearance for the inpatient physical exam. Vital Signs Vital Signs Past 12 Hours Date Time Temp Pulse Resp B/P (MAP) Pulse Ox O2 Delivery O2 Flow Rate FiO2 11/19/16 07:09 36.4 56 16 117/72 78 120/81 11/19/16 07:09 36.4 84 18 126/72 11/18/16 23:24 36.7 84 18 126/72 11/18/16 22:10 78 18 126/72 99 Room Air Laboratory Results Last 24 Hours Test 11/18/16 18:15 11/18/16 19:20 Urine Color YELLOW Urine Appearance CLEAR Urine pH 5.5 Urine Specific [place] 1.023 Urine Protein NEG Urine Glucose (UA) NEG Urine Ketones NEG Urine Occult Blood NEG Urine Nitrite NEG Urine Bilirubin NEG Urine Urobilinogen NEG Urine Leukocyte Esterase NEG Urine Opiates Screen POS Urine Methadone, Qualitative NEG Urine Barbiturates NEG Urine Phencyclidine (PCP) Level NEG Ur Amphetamine/Methamphetamine NEG MDMA (Ecstasy) Screen NEG Urine Benzodiazepines Screen NEG Urine Cocaine Metabolite NEG Urine Marijuana (THC) NEG White Blood Count 5.02 K/uL Red Blood Count 4.99 M/uL Hemoglobin 15.1 g/dL Hematocrit 42.8 % Mean Corpuscular Volume 85.8 fL Mean Corpuscular Hemoglobin 30.3 pg Mean Corpuscular Hemoglobin Concent 35.3 g/dl Platelet Count 236 K/uL Mean Platelet Volume 9.0 fL Neutrophils (%) (Auto) 62.1 % Lymphocytes (%) (Auto) 26.9 % Monocytes (%) (Auto) 8.0 % Eosinophils (%) (Auto) 2.6 % Basophils (%) (Auto) 0.2 % Neutrophils # (Auto) 3.12 K/uL Lymphocytes # (Auto) 1.35 K/uL Monocytes # (Auto) 0.40 K/uL Eosinophils # (Auto) 0.13 K/uL Basophils # (Auto) 0.01 K/uL RDW Standard Deviation 40.3 fL RDW Coefficient of Variation 12.9 % Immature Granulocyte % (Auto) 0.2 % Immature Granulocyte # (Auto) 0.01 K/uL Sodium Level 139 mmol/L Potassium Level 3.8 mmol/L Chloride Level 106 mmol/L Carbon Dioxide Level 28 mmol/L Anion Gap 5.0 mmol/L Blood Urea Nitrogen 15 mg/dl Creatinine 1.00 mg/dl Est Creatinine Clear Calc Drug Dose 97.2 ml/min Estimated GFR () 103.4 Estimated GFR (Non- 89.2 BUN/Creatinine Ratio 14.7 Random Glucose 94 mg/dl Calcium Level 9.3 mg/dl Total Bilirubin 1.1 mg/dl Direct Bilirubin 0.2 mg/dl Aspartate Amino Transf (AST/SGOT) 23 U/L Alanine Aminotransferase (ALT/SGPT) 30 U/L Alkaline Phosphatase 67 U/L Total Protein 7.6 gm/dl Albumin 3.5 gm/dl Thyroid Stimulating Hormone (TSH) 1.160 uIu/ml Salicylates Level < 1.7 mg/dl Acetaminophen Level < 2 ug/ml Ethyl Alcohol mg/dL < 3.0 mg/dl Mental Examination Appearance: disheveled, other (large bandage on forehead; malodorous) Eye contact is: fair Motor behavior is: no abnormal motor movements Speech: normal in rate, rhythm & volume, other (slightly pressured and hyperverbal) Affect: depressed, constricted Mood is: other ("up and down") Thought process: tangential Thought content: reality based without delusions Suicidal thought are: present, Plan: present, Intent: denied Homicidal thoughts are: denied Hallucinations: denies auditory, denies visual Cognition: language grossly intact, other (memory and attention are impaired) Intelligence estimated to be: consistent with level of education Insight: impaired Judgement: impaired Impression / Recommendations Impression 46-year-old white male who lives in [place] with his girlfriend, has a history of bipolar disorder not otherwise specified, treatment noncompliance, alcohol, cannabis, and opiate abuse, who presented to the emergency room with police for erratic behavior and was admitted voluntarily after he endorsed suicidal thoughts with a plan to hang himself. He also has a forehead laceration he sustained 8 days ago after he slipped and fell in a knik and hit his head, which became infected, and is being treated by Dr. Trixie Palomares. He does not currently have any outpatient psychiatric providers, does not take medications, and presents with mood lability, agitation, and suicidal thoughts. Inventory Assets Strengths: "I'm athletic, I can shoot." Risk Factors Assessment Male: Yes : Yes /single/: No Higher / Fall in social status: No Access to guns: Yes Health problems: Yes Mental Health Diagnoses: Yes Substance use disorders: Yes Previous attempt: Yes Family history of suicide: No Previous psychiatric stay: Yes Smoker: Yes Protective Factors Assessment Scientologist beliefs: Yes : No Responsible for young children: No Employed: Yes Stable relationships: Yes Supportive family: Yes Good rapport with provider: No Recommendations (1) Bipolar disorder, unspecified Patient has history of bipolar disorder, but has been noncompliant with outpatient treatment and medications. Would recommend Depakote, but he is not sure if he is willing to accept mood stabilizing medication at this time. We will continue risperidone 1 mg daily at bedtime, and we'll check fasting labs tomorrow. He will need ongoing education about his diagnosis and the risks of continued noncompliance with treatment. Recommend outpatient psychiatric follow-up and therapy. Recommend family meeting with girlfriend and mother. Need to ensure he will not of access to guns after discharge. Every 15 minute checks and encourage participation in unit groups and programming. Work on discharge safety plan. (2) Opiate misuse Patient was given a 4 day supply of [place] when he was seen in the emergency room. We will not continue this here, due to ongoing substance abuse and as it was intended for short-term treatment of pain. We will offer Tylenol and ibuprofen as needed. (3) Cannabis abuse Patient has been educated about the risks of ongoing cannabis use, including exacerbation of his mood disorder and psychotic symptoms, and the recommendations for abstinence. (4) Alcohol abuse The patient's AUDIT score and history suggest problematic drinking (Zone III WHO ). Brief intervention was offered and patient was poorly receptive. He minimizes his substance abuse, and is not willing to make changes. Intervention was greater than 5 min in length. Brief interventions include: 1. Assess Readiness to Quit, 2. Advise: Help Patient to Reduce or Abstain from Alcohol, 3. Agree: Set Specific, Feasible Goals, 4. Assist: Anticipate barriers, Problem-Solving Solutions. Social work to 5. Arrange: Referrals to appropriate treatment. Summary of intervention: The patient is in precontemplation stage with regards to transtheoretical model of change. The patient is advised to decrease alcohol consumption due to depressant effects and risk of interactions with prescription medications. The patient will be provided with recovery materials to continue to education self on how to cope with their condition without drinking. (5) Laceration Complete course of Keflex and Cipro. Discussed case with Dr. Trixie Palomares, who saw him in the emergency room and again yesterday, and she reports he will need a dressing change (wound care nurse consulted) tomorrow, continue antibiotics awaiting sensitivity, and will need sutures removed in 2 days. He will not likely need further plastic surgery follow up. CPT Code Initial Hospital Care: 27143 Problem Qualifiers (1) Bipolar disorder, unspecified: Active/Remission status: currently active Current bipolar episode type: mixed Current episode severity: severe Psychotic features: without psychotic features Qualified Codes: F31.63 - Bipolar disorder, current episode mixed, severe, without psychotic features
[2016-11-19] MEDS: CIPROFLOXACIN 500 MG TAB PO SCH ×2 (09:50→21:28)
[2016-11-19] MEDS: CEPHALEXIN MONOHYDRATE 500 MG CAP PO SCH ×3 (09:51→21:27)
[2016-11-19] MEDS ORDERED: CEPH-571 PO (10:12)
[2016-11-19] MEDS: RISPERIDONE 1 MG TAB PO SCH (21:28)
[2016-11-20 06:59] VITALS: BP_SYST 109; BP_SYST 120; BP_DIAS 68; BP_DIAS 78; PULSE 62; PULSE 83; TEMP 36.8
[2016-11-20 08:07] LABS: CHOLESTEROL/HDL RATIO 4.3
[2016-11-20] MEDS: CIPROFLOXACIN 500 MG TAB PO SCH ×2 (09:06→22:05)
[2016-11-20] MEDS: CEPHALEXIN MONOHYDRATE 500 MG CAP PO SCH ×3 (09:07→22:06)
--- NOTE | 2016-11-20 12:37 | Psychiatric Progress Notes ---
Progress Note Date of Service Nov 20, 2016. Interval History 46-year-old white male who lives in [place] with his girlfriend, has a history of bipolar disorder not otherwise specified, treatment noncompliance, alcohol, cannabis, and opiate abuse, who presented to the emergency room with police for erratic behavior and was admitted voluntarily after he endorsed suicidal thoughts with a plan to hang himself. He also has a forehead laceration he sustained 8 days ago after he slipped and fell [place] and hit his head, which became infected, and is being treated by Dr. Trixie Palomares. He does not currently have any outpatient psychiatric providers, does not take medications, and presents with mood lability, agitation, and suicidal thoughts. Chief Complaint "Better than when I came in.". Subjective Patient was seen & assessed interval progress reviewed with Treatment Team. The patient says that he feels better since admission, but has trouble explaining how. His thinking is tangential, as he jumps from topic to topic from money being behind medicine, to his grandmother being on pills to stay alive. He says that he doesn't like psych meds because they turn you into a Zombie, but when I remind him that he is taking Risperdal without being a zombie , he starts to laugh. He says that he needs something to "take the edge off it " realizing that he his life has been chaotic because he hasn't chosen to deal with it. He continues to say that he has SI that "come and go", but doesn't think he would ever act on it. He denies aud/vis hallucinations. We review his labs and he admits that he took someone else's pain meds for his head, which is why his drug screen is positive. Review of Systems Constitutional: No fever, No chills, No sweats, No weight loss, No weakness, No fatigue, No problem reported ENT: No hearing loss, No unusual epistaxis, No nasal symptoms, No sore throat, No tinnitus, No dental problems, No trouble swallowing, No problem reported Respiratory: No cough, No sputum, No wheezing, No shortness of breath, No dyspnea on exertion, No dyspnea at rest, No hemoptysis, No problem reported Cardiovascular: No chest pain, No orthopnea, No PND, No edema, No claudication , No palpitations, No problem reported Abdomen: No pain, No nausea, No vomiting, No diarrhea, No constipation, No GI bleeding, No problem reported Musculoskeletal: No joint pain, No muscle pain, No swelling, No calf pain, No problem reported Neurologic: No memory loss, No paralysis, No weakness, No numbness/tingling, No vertigo, No balance problems, No problem reported Psychiatric: + depression symptoms (with si) Integumentary: + problem reported (head wound with bandage) Sleep Information Total Hours of Sleep: 5.75 Meal Information Percent of Breakfast Consumed: 100 Percent of Lunch Consumed: 100 Percent of Dinner Consumed: 100 Mental Status Exam During interview pt is: alert and oriented, cooperative Appearance: disheveled, other (large bandage on forehead) Eye contact is: good Motor behavior is: no abnormal motor movements Speech: loud, other (slightly pressured and hyperverbal) Affect: depressed, labile, constricted Mood is: depressed, irritable, other ("up and down") Thought process: tangential Thought content: reality based without delusions Suicidal thought are: present, Plan: present, Intent: denied Homicidal thoughts are: denied Hallucinations: denies auditory, denies visual Cognition: language grossly intact, other (memory and attention are impaired) Intelligence estimated to be: consistent with level of education Insight: impaired Judgement: impaired Impression ADjusting well to the support and structure of the milieu and is cooperative with treatment. No side effects to meds. Will not increase Risperdal today, but have told him that if he is tolerating it tomorrow will increase to target racing thoughts. He would benefit from a mood stabilizer, but has false beliefs that all people on mood stabilizers are zombies and put on weight. Will continue to encourage. Plan (1) Bipolar disorder, unspecified Patient has history of bipolar disorder, but has been noncompliant with outpatient treatment and medications. Would recommend Depakote, but he is not sure if he is willing to accept mood stabilizing medication at this time. We will continue risperidone 1 mg daily at bedtime, and we'll check fasting labs tomorrow. He will need ongoing education about his diagnosis and the risks of continued noncompliance with treatment. Recommend outpatient psychiatric follow-up and therapy. Recommend family meeting with girlfriend and mother. Need to ensure he will not of access to guns after discharge. Every 15 minute checks and encourage participation in unit groups and programming. Work on discharge safety plan. 11/20 - Continue current meds. Will increase tomorrow if tolerating. (2) Opiate misuse Patient was given a 4 day supply of [place] when he was seen in the emergency room. We will not continue this here, due to ongoing substance abuse and as it was intended for short-term treatment of pain. We will offer Tylenol and ibuprofen as needed. (3) Cannabis abuse Patient has been educated about the risks of ongoing cannabis use, including exacerbation of his mood disorder and psychotic symptoms, and the recommendations for abstinence. (4) Alcohol abuse The patient's AUDIT score and history suggest problematic drinking (Zone III WHO ). Brief intervention was offered and patient was poorly receptive. He minimizes his substance abuse, and is not willing to make changes. Intervention was greater than 5 min in length. Brief interventions include: 1. Assess Readiness to Quit, 2. Advise: Help Patient to Reduce or Abstain from Alcohol, 3. Agree: Set Specific, Feasible Goals, 4. Assist: Anticipate barriers, Problem-Solving Solutions. Social work to 5. Arrange: Referrals to appropriate treatment. Summary of intervention: The patient is in precontemplation stage with regards to transtheoretical model of change. The patient is advised to decrease alcohol consumption due to depressant effects and risk of interactions with prescription medications. The patient will be provided with recovery materials to continue to education self on how to cope with their condition without drinking. (5) Laceration Complete course of Keflex and Cipro. Discussed case with Dr. Trixie Palomares, who saw him in the emergency room and again yesterday, and she reports he will need a dressing change (wound care nurse consulted) tomorrow, continue antibiotics awaiting sensitivity, and will need sutures removed in 2 days. He will not likely need further plastic surgery follow up. 11/20 Suture removal tomorrow 11/21 Visit Code E&M Code: 15589 Inventory Assets Strengths: "I'm athletic, I can shoot. Risk Factors Assessment Male: Yes : Yes /single/: No Higher / Fall in social status: No Health problems: Yes Mental Health Diagnoses: Yes Substance use disorders: Yes Previous attempt: Yes Family history of suicide: No Previous psychiatric stay: Yes Smoker: Yes Protective Factors Assessment Jewish beliefs: Yes : No Responsible for young children: No Employed: Yes Stable relationships: Yes Supportive family: Yes Good rapport with provider: No Data Vital Signs Last 24 Hrs: Date Time Temp Pulse Resp B/P (MAP) Pulse Ox O2 Delivery O2 Flow Rate FiO2 11/20/16 06:59 36.8 62 16 109/68 83 120/78 Meds Administered Last 24 Hrs: Meds Administered (Past 24Hrs) Medications (Trade) Dose Ordered Sig/[place] Route Start Time Stop Time Status Last Admin Dose Admin Cephalexin Monohydrate (Keflex Cap) 500 mg TID PO 11/18/16 22:30 11/25/16 14:01 11/20/16 09:07 500 MG Ciprofloxacin (Cipro Tab) 500 mg BID PO 11/18/16 22:30 11/25/16 09:01 11/20/16 09:06 500 MG Ibuprofen (Advil Tab) 400 mg Q8H PRN PO 11/18/16 22:45 12/18/16 22:44 11/18/16 22:49 400 MG Risperidone (Risperdal Tab) 1 mg NOW ONCE PO 11/18/16 22:45 11/18/16 22:46 DC 11/18/16 22:47 1 MG Risperidone (Risperdal Tab) 1 mg HS PO 11/19/16 22:00 12/19/16 21:59 11/19/16 21:28 1 MG Lab Results Last 24 Hrs: Last 24 Hours Test 11/20/16 07:16 Fasting Glucose 106 mg/dl Triglycerides Level 139 mg/dl Cholesterol Level 151 mg/dl HDL Cholesterol 35 mg/dl LDL Cholesterol, Calculated 88 mg/dl VLDL Cholesterol, Calculated 28 mg/dl Cholesterol/HDL Ratio 4.3 Problem Qualifiers (1) Bipolar disorder, unspecified: Active/Remission status: currently active Current bipolar episode type: mixed Current episode severity: severe Psychotic features: without psychotic features Qualified Codes: F31.63 - Bipolar disorder, current episode mixed, severe, without psychotic features
[2016-11-20] MEDS: RISPERIDONE 1 MG TAB PO SCH (22:06)
[2016-11-21 06:56] VITALS: BP_SYST 125; BP_DIAS 70; BP_DIAS 83; PULSE 67; PULSE 87; TEMP 36.5
[2016-11-21 08:01] LABS: COD UR NEGATIVE NG/ML (CUTOFF=50); HYDROCOD UR NEGATIVE NG/ML (CUTOFF=50); HYDROMOR UR NEGATIVE NG/ML (CUTOFF=50); MORPHINE UR 170 NG/ML (CUTOFF=50); NORHYDROCODONE CONF UR NEGATIVE NG/ML (CUTOFF=50); OXYMORPH UR NEGATIVE NG/ML (CUTOFF=50)
[2016-11-21] MEDS: CIPROFLOXACIN 500 MG TAB PO SCH ×2 (08:55→22:02)
[2016-11-21] MEDS: CEPHALEXIN MONOHYDRATE 500 MG CAP PO SCH ×3 (08:55→22:02)
--- NOTE | 2016-11-21 09:33 | Psychiatric Progress Notes ---
Progress Note Date of Service Nov 21, 2016. Interval History 46-year-old white male who lives in [place] with his girlfriend, has a history of bipolar disorder not otherwise specified, treatment noncompliance, alcohol, cannabis, and opiate abuse, who presented to the emergency room with police for erratic behavior and was admitted voluntarily after he endorsed suicidal thoughts with a plan to hang himself. He also has a forehead laceration he sustained 8 days ago after he slipped and fell in a [place] and hit his head, which became infected, and is being treated by Dr. Trixie Palomares. He does not currently have any outpatient psychiatric providers, does not take medications, and presents with mood lability, agitation, and suicidal thoughts. Chief Complaint "I slept good because I stayed up all day.". Subjective Patient was seen & assessed interval progress reviewed with Treatment Team. He says that he stayed up to watch a movie with some peers last night, and enjoyed it. He then slept well. He conversation remains rambling, jumping from topic to topic, talking about having used alcohol for pain, knowing that its no good for him, not wanting to be a "pill popper", that pill poppers get long hair and get old early. He admits that he is tolerating the Risperdal, and I tell him that we will increase it today, and that he will get his sutures out today, per Dr. Schwartz. He continues to deny aud/vis hallucinations. SI comes and goes as yesterday. Review of Systems Constitutional: No fever, No chills, No sweats, No weight loss, No weakness, No fatigue, No problem reported ENT: No hearing loss, No unusual epistaxis, No nasal symptoms, No sore throat, No tinnitus, No dental problems, No trouble swallowing, No problem reported Respiratory: No cough, No sputum, No wheezing, No shortness of breath, No dyspnea on exertion, No dyspnea at rest, No hemoptysis, No problem reported Cardiovascular: No chest pain, No orthopnea, No PND, No edema, No claudication , No palpitations, No problem reported Abdomen: No pain, No nausea, No vomiting, No diarrhea, No constipation, No GI bleeding, No problem reported Musculoskeletal: No joint pain, No muscle pain, No swelling, No calf pain, No problem reported Neurologic: No memory loss, No paralysis, No weakness, No numbness/tingling, No vertigo, No balance problems, No problem reported Psychiatric: + problem reported (racing thoughts) Integumentary: + problem reported (forehead laceration with bandage) Sleep Information Total Hours of Sleep: 6.00 Meal Information Percent of Breakfast Consumed: 100 Percent of Lunch Consumed: 100 Percent of Dinner Consumed: 100 Mental Status Exam During interview pt is: alert and oriented, cooperative Appearance: disheveled, other (large bandage on forehead) Eye contact is: good Motor behavior is: no abnormal motor movements Speech: loud, other (slightly pressured and hyperverbal) Affect: depressed, labile, constricted Mood is: depressed, irritable, other ("up and down") Thought process: tangential Thought content: reality based without delusions Suicidal thought are: present, Plan: present, Intent: denied Homicidal thoughts are: denied Hallucinations: denies auditory, denies visual Cognition: language grossly intact, other (memory and attention are impaired) Intelligence estimated to be: consistent with level of education Insight: impaired Judgement: impaired Impression Tolerating Risperdal and to will increase to 1.5 mg HS tonight. His behavior is appropriate, but his thoughts remain fast, with tangential disconnected thinking. He remains opposed, in general, to psych meds and so taking a slow course with meds may be helpful in winning his support to continue after discharge. We will remove his sutures today, per Dr. Shcwartz's recommendations. ADD: Joined family meeting at the patient's request to discuss mood stabilizers , which he is now willing to consider. Discussed depakote and lithium, and agreed on depakote due to significant anger over the years, resulting in legal problems. R/B/A reviewed and accepted. Will start Depakote DR 250 bid and will need to be titrated. Plan (1) Bipolar disorder, unspecified Patient has history of bipolar disorder, but has been noncompliant with outpatient treatment and medications. Would recommend Depakote, but he is not sure if he is willing to accept mood stabilizing medication at this time. We will continue risperidone 1 mg daily at bedtime, and we'll check fasting labs tomorrow. He will need ongoing education about his diagnosis and the risks of continued noncompliance with treatment. Recommend outpatient psychiatric follow-up and therapy. Recommend family meeting with girlfriend and mother. Need to ensure he will not of access to guns after discharge. Every 15 minute checks and encourage participation in unit groups and programming. Work on discharge safety plan. 11/20 - Continue current meds. Will increase tomorrow if tolerating. 11/21 - Increase Risperdal to 1.5 mg HS - Add Depakote DR 250 mg. BID titrating as tolerated (2) Opiate misuse Patient was given a 4 day supply of [place] when he was seen in the emergency room. We will not continue this here, due to ongoing substance abuse and as it was intended for short-term treatment of pain. We will offer Tylenol and ibuprofen as needed. (3) Cannabis abuse Patient has been educated about the risks of ongoing cannabis use, including exacerbation of his mood disorder and psychotic symptoms, and the recommendations for abstinence. (4) Alcohol abuse The patient's AUDIT score and history suggest problematic drinking (Zone III WHO ). Brief intervention was offered and patient was poorly receptive. He minimizes his substance abuse, and is not willing to make changes. Intervention was greater than 5 min in length. Brief interventions include: 1. Assess Readiness to Quit, 2. Advise: Help Patient to Reduce or Abstain from Alcohol, 3. Agree: Set Specific, Feasible Goals, 4. Assist: Anticipate barriers, Problem-Solving Solutions. Social work to 5. Arrange: Referrals to appropriate treatment. Summary of intervention: The patient is in precontemplation stage with regards to transtheoretical model of change. The patient is advised to decrease alcohol consumption due to depressant effects and risk of interactions with prescription medications. The patient will be provided with recovery materials to continue to education self on how to cope with their condition without drinking. (5) Laceration Complete course of Keflex and Cipro. Discussed case with Dr. Trixie Palomares, who saw him in the emergency room and again yesterday, and she reports he will need a dressing change (wound care nurse consulted) tomorrow, continue antibiotics awaiting sensitivity, and will need sutures removed in 2 days. He will not likely need further plastic surgery follow up. 11/20 Suture removal tomorrow 11/21 11/21 - Remove sutures today Visit Code E&M Code: 04358 Inventory Assets Strengths: "I'm athletic, I can shoot. Risk Factors Assessment Male: Yes : Yes /single/: No Higher / Fall in social status: No Health problems: Yes Mental Health Diagnoses: Yes Substance use disorders: Yes Previous attempt: Yes Family history of suicide: No Previous psychiatric stay: Yes Smoker: Yes Protective Factors Assessment Jain beliefs: Yes : No Responsible for young children: No Employed: Yes Stable relationships: Yes Supportive family: Yes Good rapport with provider: No Data Vital Signs Last 24 Hrs: Date Time Temp Pulse Resp B/P (MAP) Pulse Ox O2 Delivery O2 Flow Rate FiO2 11/21/16 06:56 36.5 67 18 125/70 87 125/83 Meds Administered Last 24 Hrs: Meds Administered (Past 24Hrs) Medications (Trade) Dose Ordered Sig/[place] Route Start Time Stop Time Status Last Admin Dose Admin Risperidone (Risperdal Tab) 1 mg HS PO 11/19/16 22:00 12/19/16 21:59 11/20/16 22:06 1 MG Lab Results Last 24 Hrs: 11/18/16 19:20 Red Blood Count 4.99, Mean Corpuscular Volume 85.8, Mean Corpuscular Hemoglobin 30.3, Mean Corpuscular Hemoglobin Concent 35.3, Mean Platelet Volume 9.0, Neutrophils (%) (Auto) 62.1, Lymphocytes (%) (Auto) 26.9, Monocytes (%) (Auto) 8.0, Eosinophils (%) (Auto) 2.6, Basophils (%) (Auto) 0.2, Neutrophils # (Auto) 3.12, Lymphocytes # (Auto) 1.35, Monocytes # (Auto) 0.40, Eosinophils # (Auto) 0.13, Basophils # (Auto) 0.01 11/18/16 19:20 Test 11/18/16 18:15 11/18/16 19:20 11/20/16 07:16 Urine Color YELLOW Urine Appearance CLEAR (CLEAR) Urine pH 5.5 (4.5-7.5) Urine Specific [place] 1.023 (1.000-1.030) Urine Protein NEG (NEG) Urine Glucose (UA) NEG (NEG) Urine Ketones NEG (NEG) Urine Occult Blood NEG (NEG) Urine Nitrite NEG (NEG) Urine Bilirubin NEG (NEG) Urine Urobilinogen NEG (NEG) Urine Leukocyte Esterase NEG (NEG) Urine Opiates Screen POS (NEG) Urine Codeine Confirmation (GC/MS) NEGATIVE NG/ML (CUTOFF=50) Urine Morphine Confirm (GC/MS) 170 NG/ML (CUTOFF=50) Urine Hydrocodone Confirm (GC/MS) NEGATIVE NG/ML (CUTOFF=50) Urine Norhydrocodone NEGATIVE NG/ML (CUTOFF=50) Urine Noroxycodone NEGATIVE NG/ML (CUTOFF=50) Urine Oxycodone Confirm (GC/MS) NEGATIVE NG/ML (CUTOFF=50) Urine Oxymorphone Confirm (GC/MS) NEGATIVE NG/ML (CUTOFF=50) Urine Methadone, Qualitative NEG (NEG) Urine Hydromorphone Confirm (GC/MS) NEGATIVE NG/ML (CUTOFF=50) Urine Barbiturates NEG (NEG) Urine Phencyclidine (PCP) Level NEG (NEG) Ur Amphetamine/Methamphetamine NEG (NEG) MDMA (Ecstasy) Screen NEG (NEG) Urine Benzodiazepines Screen NEG (NEG) Urine Cocaine Metabolite NEG (NEG) Urine Marijuana (THC) NEG (NEG) White Blood Count 5.02 K/uL (4.8-10.8) Red Blood Count 4.99 M/uL (4.7-6.1) Hemoglobin 15.1 g/dL (14.0-18.0) Hematocrit 42.8 % (42-52) Mean Corpuscular Volume 85.8 fL (80-100) Mean Corpuscular Hemoglobin 30.3 pg (25-34) Mean Corpuscular Hemoglobin Concent 35.3 g/dl (32-36) Platelet Count 236 K/uL (130-400) Mean Platelet Volume 9.0 fL (7.4-10.4) Neutrophils (%) (Auto) 62.1 % Lymphocytes (%) (Auto) 26.9 % Monocytes (%) (Auto) 8.0 % Eosinophils (%) (Auto) 2.6 % Basophils (%) (Auto) 0.2 % Neutrophils # (Auto) 3.12 K/uL (1.4-6.5) Lymphocytes # (Auto) 1.35 K/uL (1.2-3.4) Monocytes # (Auto) 0.40 K/uL (0.11-0.59) Eosinophils # (Auto) 0.13 K/uL (0-0.5) Basophils # (Auto) 0.01 K/uL (0-0.2) RDW Standard Deviation 40.3 fL (36.4-46.3) RDW Coefficient of Variation 12.9 % (11.5-14.5) Immature Granulocyte % (Auto) 0.2 % Immature Granulocyte # (Auto) 0.01 K/uL (0.00-0.02) Anion Gap 5.0 mmol/L (3-11) Est Creatinine Clear Calc Drug Dose 97.2 ml/min Estimated GFR () 103.4 Estimated GFR (Non- 89.2 BUN/Creatinine Ratio 14.7 (10-20) Calcium Level 9.3 mg/dl (8.5-10.1) Total Bilirubin 1.1 mg/dl (0.2-1) Direct Bilirubin 0.2 mg/dl (0-0.2) Aspartate Amino Transf (AST/SGOT) 23 U/L (15-37) Alanine Aminotransferase (ALT/SGPT) 30 U/L (12-78) Alkaline Phosphatase 67 U/L (45-117) Total Protein 7.6 gm/dl (6.4-8.2) Albumin 3.5 gm/dl (3.4-5.0) Thyroid Stimulating Hormone (TSH) 1.160 uIu/ml (0.300-4.500) Salicylates Level < 1.7 mg/dl (2.8-20) Acetaminophen Level < 2 ug/ml (10-30) Ethyl Alcohol mg/dL < 3.0 mg/dl (0-3) Fasting Glucose 106 mg/dl (70-99) Triglycerides Level 139 mg/dl (0-150) Cholesterol Level 151 mg/dl (0-200) HDL Cholesterol 35 mg/dl LDL Cholesterol, Calculated 88 mg/dl VLDL Cholesterol, Calculated 28 mg/dl Cholesterol/HDL Ratio 4.3 Problem Qualifiers (1) Bipolar disorder, unspecified: Active/Remission status: currently active Current bipolar episode type: mixed Current episode severity: severe Psychotic features: without psychotic features Qualified Codes: F31.63 - Bipolar disorder, current episode mixed, severe, without psychotic features
[2016-11-21] MEDS ORDERED: DIVALPROEX SODIUM 250 MG DELAY REL TAB PO ONE (13:14)
--- NOTE | 2016-11-21 16:56 | Medical Student: [facility] Only ---
Psychiatric Progress Note Date of Service: Nov 21, 2016. I removed Figueroa's sutures today at 16:30. 9 sutures were removed of the 11 that were put in. He notes two were taken out previously accidentally. Packing was also removed. Wound was cleaned with alcohol pad before and after sutures were moved. Wound was weeping serosanguineous fluid where packing was inserted. There were no signs of infection including warmth, redness or purulent discharge. Wound was then covered with sterile gauze held in place with meditape. Discussed with nursing that gauze may need to be replaced tomorrow or as needed.
[2016-11-21] MEDS: IBUPROFEN 200 MG TAB PO PRN (17:43)
[2016-11-21] MEDS: DIVALPROEX SODIUM 250 MG DELAY REL TAB PO SCH (22:02)
[2016-11-21] MEDS: RISPERIDONE 1 MG TAB PO SCH (22:02)
[2016-11-22 07:06] VITALS: BP_SYST 119; BP_SYST 124; BP_DIAS 69; BP_DIAS 86; PULSE 64; PULSE 73; TEMP 36.5
[2016-11-22] MEDS: DIVALPROEX SODIUM 250 MG DELAY REL TAB PO SCH ×2 (07:56→22:13)
[2016-11-22] MEDS: CEPHALEXIN MONOHYDRATE 500 MG CAP PO SCH ×3 (07:56→22:13)
[2016-11-22] MEDS: CIPROFLOXACIN 500 MG TAB PO SCH ×2 (07:56→22:13)
--- NOTE | 2016-11-22 07:57 | Psychiatric Progress Notes ---
Progress Note Date of Service Nov 22, 2016. Interval History 46-year-old white male who lives in [place] with his girlfriend, has a history of bipolar disorder not otherwise specified, treatment noncompliance, alcohol, cannabis, and opiate abuse, who presented to the emergency room with police for erratic behavior and was admitted voluntarily after he endorsed suicidal thoughts with a plan to hang himself. He also has a forehead laceration he sustained 8 days ago after he slipped and fell in a [place] and hit his head, which became infected, and is being treated by Dr. Trixie Palomares. He does not currently have any outpatient psychiatric providers, does not take medications, and presents with mood lability, agitation, and suicidal thoughts. Chief Complaint "Great, I'm great". Subjective Patient was seen & assessed interval progress reviewed with Nursing. He only slept 4.5 hours, and continues to be hyperverbal with pressured speech. He had a meeting with his mother and girlfriend yesterday, which was difficult as they were all yelling and talking over one another. He identified primary problems as anxiety, poor sleep, impulsiveness, and anger. They were encouraging him to think about a mood stabilizer as his girlfriend is also on a mood stabilizer and says that it helps a lot. He quickly decided that he would like to try this , and his mother related that he had been on both depakote and lithium in the past but did not stay on either for very long. His girlfriend expressed concerns that he may not follow through long enough to see benefit. KRYSTYNA Jones, joined the meeting to discuss and the patient agreed to a trial of Depakote, and was started 250mg bid. Concerns about his lack of insurance coverage were discussed, and although [place] application has been started, do not have approval yet. Discussed referral to [facility] in the event that MA does not go through as anticipated. Pt has not yet signed ROIs or decided on aftercare in part because of insurance. He talked minimally about suicidal thoughts, and said that without his latonya, he would not be alive now. Suicidal thinking seems to be normalized within the family, as they all acknowledged having suicidal thoughts at times, saying "everybody does." They confirmed that the patient does not have access to guns. He and his girlfriend have frequent disagreements , sometimes with the patient moving out and then back in within a week's time. He lives with his grandmother when not living with girlfriend. He does not drive and will need to depend on mother for transportation. Job status remains uncertain and family would like him to get disability. They were informed that he does have a treatable condition, and this is not the time to apply for disability. Furthermore explained that if disability is needed down the road that he will need to have an outpatient provider to support it. His girlfriend requested a meeting at another time with just the 2 of them, meeting scheduled for Thursday, 11/24 @ 2pm. His sutures and wound packing were removed yesterday without incident, no signs of infection. Today he says he's "great, great, a 10 and climbing." He stayed up until 1am last night watching Frozen, "it's a great movie." He reports good sleep and appetite, "everything's going good, just taking one day at a times, I'm hyper and manic, doyle things, multitask." He has high energy, restlessness and jiggles his leg a lot. His thoughts are slowing, but are still fast at times. He denies side effects to medications. Sleep Information Total Hours of Sleep: 4.50 Meal Information Percent of Breakfast Consumed: 100 Percent of Lunch Consumed: 100 Percent of Dinner Consumed: 100 Mental Status Exam During interview pt is: alert and oriented, cooperative Appearance: appropriately dressed (scrub pants and t-shirt, with large bandage on forehead), other (large bandage on forehead) Eye contact is: good Motor behavior is: no abnormal motor movements Speech: loud, other (slightly pressured and hyperverbal) Affect: depressed, labile, euthymic (expansive at times) Mood is: other ("manic") Thought process: tangential, looseness of associations Thought content: reality based without delusions Suicidal thought are: present Homicidal thoughts are: denied Hallucinations: denies auditory, denies visual Cognition: memory grossly intact, language grossly intact Intelligence estimated to be: consistent with level of education Insight: impaired Judgement: impaired Impression Tolerating Risperdal and have increased to 1.5 mg HS, and agreed to start Depakote on 11/21. His behavior is appropriate, but his thoughts remain fast, with tangential disconnected thinking. He remains opposed, in general, to psych meds and so taking a slow course with meds may be helpful in winning his support to continue after discharge. His sutures were removed 11/21, and wound without signs of infection. Plan (1) Bipolar disorder, unspecified Patient has history of bipolar disorder, but has been noncompliant with outpatient treatment and medications. Would recommend Depakote, but he is not sure if he is willing to accept mood stabilizing medication at this time. We will continue risperidone 1 mg daily at bedtime, and we'll check fasting labs tomorrow. He will need ongoing education about his diagnosis and the risks of continued noncompliance with treatment. Recommend outpatient psychiatric follow-up and therapy. Recommend family meeting with girlfriend and mother. Need to ensure he will not of access to guns after discharge. Every 15 minute checks and encourage participation in unit groups and programming. Work on discharge safety plan. 11/20 - Continue current meds. Will increase tomorrow if tolerating. 11/21 - Increase Risperdal to 1.5 mg HS - Add Depakote DR 250 mg. BID titrating as tolerated - Family meeting with mother and girlfriend held, and second meeting scheduled with girlfriend for Thursday. 11/22 - Continue current meds. (2) Opiate misuse Patient was given a 4 day supply of [place] when he was seen in the emergency room. We will not continue this here, due to ongoing substance abuse and as it was intended for short-term treatment of pain. We will offer Tylenol and ibuprofen as needed. (3) Cannabis abuse Patient has been educated about the risks of ongoing cannabis use, including exacerbation of his mood disorder and psychotic symptoms, and the recommendations for abstinence. (4) Alcohol abuse The patient's AUDIT score and history suggest problematic drinking (Zone III WHO ). Brief intervention was offered and patient was poorly receptive. He minimizes his substance abuse, and is not willing to make changes. Intervention was greater than 5 min in length. Brief interventions include: 1. Assess Readiness to Quit, 2. Advise: Help Patient to Reduce or Abstain from Alcohol, 3. Agree: Set Specific, Feasible Goals, 4. Assist: Anticipate barriers, Problem-Solving Solutions. Social work to 5. Arrange: Referrals to appropriate treatment. Summary of intervention: The patient is in precontemplation stage with regards to transtheoretical model of change. The patient is advised to decrease alcohol consumption due to depressant effects and risk of interactions with prescription medications. The patient will be provided with recovery materials to continue to education self on how to cope with their condition without drinking. (5) Laceration Complete course of Keflex and Cipro. Discussed case with Dr. Trixie Palomares, who saw him in the emergency room and again yesterday, and she reports he will need a dressing change (wound care nurse consulted) tomorrow, continue antibiotics awaiting sensitivity, and will need sutures removed in 2 days. He will not likely need further plastic surgery follow up. 11/20 Suture removal tomorrow 11/21 11/21 - Remove sutures today Visit Code E&M Code: 73686 Inventory Assets Strengths: "I'm athletic, I can shoot. Risk Factors Assessment Male: Yes : Yes /single/: No Higher / Fall in social status: No Access to guns: No Health problems: Yes Mental Health Diagnoses: Yes Substance use disorders: Yes Previous attempt: Yes Family history of suicide: No Previous psychiatric stay: Yes Smoker: Yes Protective Factors Assessment Uatsdin beliefs: Yes : No Responsible for young children: No Employed: Yes Stable relationships: Yes Supportive family: Yes Good rapport with provider: No Data Vital Signs Last 24 Hrs: Date Time Temp Pulse Resp B/P (MAP) Pulse Ox O2 Delivery O2 Flow Rate FiO2 11/22/16 07:06 36.5 64 16 119/69 73 124/86 Meds Administered Last 24 Hrs: Meds Administered (Past 24Hrs) Medications (Trade) Dose Ordered Sig/[place] Route Start Time Stop Time Status Last Admin Dose Admin Divalproex Sodium (Depakote Delay Rel Tab) 250 mg BID PO 11/21/16 22:00 12/21/16 21:59 11/21/16 22:02 250 MG Divalproex Sodium (Depakote Delay Rel Tab) 250 mg 1314 ONCE PO 11/21/16 13:14 11/21/16 13:21 DC 11/21/16 13:43 250 MG Problem Qualifiers (1) Bipolar disorder, unspecified: Active/Remission status: currently active Current bipolar episode type: mixed Current episode severity: severe Psychotic features: without psychotic features Qualified Codes: F31.63 - Bipolar disorder, current episode mixed, severe, without psychotic features
--- NOTE | 2016-11-22 11:11 | Psychiatric Progress Notes ---
Progress Note Date of Service Nov 22, 2016. Interval History 46-year-old white male who lives in [place] with his girlfriend, has a history of bipolar disorder not otherwise specified, treatment noncompliance, alcohol, cannabis, and opiate abuse, who presented to the emergency room with police for erratic behavior and was admitted voluntarily after he endorsed suicidal thoughts with a plan to hang himself. He also has a forehead laceration he sustained 8 days ago after he slipped and fell in a [place] and hit his head, which became infected, and is being treated by Dr. Trixie Palomares. He does not currently have any outpatient psychiatric providers, does not take medications, and presents with mood lability, agitation, and suicidal thoughts. Chief Complaint "Pretty cool". Subjective Patient was seen & assessed interval progress reviewed with [Treatment Team] [ Nursing] Sleep Information Total Hours of Sleep: 4.50 Meal Information Percent of Breakfast Consumed: 100 Percent of Lunch Consumed: 100 Percent of Dinner Consumed: 100 Mental Status Exam During interview pt is: alert and oriented, cooperative Appearance: disheveled, other (large bandage on forehead) Eye contact is: good Motor behavior is: no abnormal motor movements Speech: loud, other (slightly pressured and hyperverbal) Affect: depressed, labile, constricted Mood is: depressed, irritable, other ("up and down") Thought process: tangential Thought content: reality based without delusions Suicidal thought are: present, Plan: present, Intent: denied Homicidal thoughts are: denied Hallucinations: denies auditory, denies visual Cognition: language grossly intact, other (memory and attention are impaired) Intelligence estimated to be: consistent with level of education Insight: impaired Judgement: impaired Impression Tolerating Risperdal and to will increase to 1.5 mg HS tonight. His behavior is appropriate, but his thoughts remain fast, with tangential disconnected thinking. He remains opposed, in general, to psych meds and so taking a slow course with meds may be helpful in winning his support to continue after discharge. We will remove his sutures today, per Dr. Schwartz's recommendations. ADD: Joined family meeting at the patient's request to discuss mood stabilizers , which he is now willing to consider. Discussed depakote and lithium, and agreed on depakote due to significant anger over the years, resulting in legal problems. R/B/A reviewed and accepted. Will start Depakote DR 250 bid and will need to be titrated. Plan (1) Bipolar disorder, unspecified Patient has history of bipolar disorder, but has been noncompliant with outpatient treatment and medications. Would recommend Depakote, but he is not sure if he is willing to accept mood stabilizing medication at this time. We will continue risperidone 1 mg daily at bedtime, and we'll check fasting labs tomorrow. He will need ongoing education about his diagnosis and the risks of continued noncompliance with treatment. Recommend outpatient psychiatric follow-up and therapy. Recommend family meeting with girlfriend and mother. Need to ensure he will not of access to guns after discharge. Every 15 minute checks and encourage participation in unit groups and programming. Work on discharge safety plan. 11/20 - Continue current meds. Will increase tomorrow if tolerating. 11/21 - Increase Risperdal to 1.5 mg HS - Add Depakote DR 250 mg. BID titrating as tolerated (2) Opiate misuse Patient was given a 4 day supply of [place] when he was seen in the emergency room. We will not continue this here, due to ongoing substance abuse and as it was intended for short-term treatment of pain. We will offer Tylenol and ibuprofen as needed. (3) Cannabis abuse Patient has been educated about the risks of ongoing cannabis use, including exacerbation of his mood disorder and psychotic symptoms, and the recommendations for abstinence. (4) Alcohol abuse The patient's AUDIT score and history suggest problematic drinking (Zone III WHO ). Brief intervention was offered and patient was poorly receptive. He minimizes his substance abuse, and is not willing to make changes. Intervention was greater than 5 min in length. Brief interventions include: 1. Assess Readiness to Quit, 2. Advise: Help Patient to Reduce or Abstain from Alcohol, 3. Agree: Set Specific, Feasible Goals, 4. Assist: Anticipate barriers, Problem-Solving Solutions. Social work to 5. Arrange: Referrals to appropriate treatment. Summary of intervention: The patient is in precontemplation stage with regards to transtheoretical model of change. The patient is advised to decrease alcohol consumption due to depressant effects and risk of interactions with prescription medications. The patient will be provided with recovery materials to continue to education self on how to cope with their condition without drinking. (5) Laceration Complete course of Keflex and Cipro. Discussed case with Dr. Trixie Palomares, who saw him in the emergency room and again yesterday, and she reports he will need a dressing change (wound care nurse consulted) tomorrow, continue antibiotics awaiting sensitivity, and will need sutures removed in 2 days. He will not likely need further plastic surgery follow up. 11/20 Suture removal tomorrow 11/21 11/21 - Remove sutures today Inventory Assets Strengths: "I'm athletic, I can shoot. Risk Factors Assessment Male: Yes : Yes /single/: No Higher / Fall in social status: No Health problems: Yes Mental Health Diagnoses: Yes Substance use disorders: Yes Previous attempt: Yes Family history of suicide: No Previous psychiatric stay: Yes Smoker: Yes Protective Factors Assessment Mosque beliefs: Yes : No Responsible for young children: No Employed: Yes Stable relationships: Yes Supportive family: Yes Good rapport with provider: No Data Vital Signs Last 24 Hrs: Date Time Temp Pulse Resp B/P (MAP) Pulse Ox O2 Delivery O2 Flow Rate FiO2 11/22/16 07:06 36.5 64 16 119/69 73 124/86 Meds Administered Last 24 Hrs: Meds Administered (Past 24Hrs) Medications (Trade) Dose Ordered Sig/[place] Route Start Time Stop Time Status Last Admin Dose Admin Divalproex Sodium (Depakote Delay Rel Tab) 250 mg BID PO 11/21/16 22:00 12/21/16 21:59 11/22/16 07:56 250 MG Divalproex Sodium (Depakote Delay Rel Tab) 250 mg 1314 ONCE PO 11/21/16 13:14 11/21/16 13:21 DC 11/21/16 13:43 250 MG Problem Qualifiers (1) Bipolar disorder, unspecified: Active/Remission status: currently active Current bipolar episode type: mixed Current episode severity: severe Psychotic features: without psychotic features Qualified Codes: F31.63 - Bipolar disorder, current episode mixed, severe, without psychotic features
[2016-11-22] MEDS: RISPERIDONE 1 MG TAB PO SCH (22:13)
[2016-11-23 07:07] VITALS: BP_SYST 110; BP_SYST 121; BP_DIAS 67; BP_DIAS 82; PULSE 67; PULSE 82; TEMP 36.4
--- NOTE | 2016-11-23 08:17 | Psychiatric Progress Notes ---
Progress Note Date of Service Nov 23, 2016. Interval History 46-year-old white male who lives in [place] with his girlfriend, has a history of bipolar disorder not otherwise specified, treatment noncompliance, alcohol, cannabis, and opiate abuse, who presented to the emergency room with police for erratic behavior and was admitted voluntarily after he endorsed suicidal thoughts with a plan to hang himself. He also has a forehead laceration he sustained 8 days ago after he slipped and fell in a [place] and hit his head, which became infected, and is being treated by Dr. Trixie Palomares. He does not currently have any outpatient psychiatric providers, does not take medications, and presents with mood lability, agitation, and suicidal thoughts. Chief Complaint "It's been yumiko, but not with me". Subjective Patient was seen & assessed interval progress reviewed with Nursing. Staff state he was upset after he found a bed bug in his clothes. Today he says he is upset about the bedbug, as he has had them at his place in the past, and says he can't avoid them. He is distraught about finding one, as he feels unable to get rid of them, and is worried they'll spread, as he thinks they're in his mother's car and at his place at home. He reports high energy and anxiety around the bed bug situation, talked to his girlfriend about it and she was worried they could be at her place. He has not called his grandmother to inform her, "she's in her own world, she says they'll go away, out." He denies SI and HI. Mood is still labile, but less so. Racing thoughts continue, "it's my DNA, my makeup." Says suicidal thoughts are still present, "it's there like anything else from A to Z," but is not dwelling on it as much. Feels "hyper, I doyle things." Sleep Information Total Hours of Sleep: 5.50 Meal Information Percent of Breakfast Consumed: 100 Percent of Lunch Consumed: 100 Percent of Dinner Consumed: 100 Mental Status Exam During interview pt is: alert and oriented, cooperative Appearance: appropriately dressed (shorts and t-shirt, large bandage on forehead), other (large bandage on forehead) Eye contact is: fair Motor behavior is: steady gait & station, no abnormal motor movements Speech: loud, other (pressured and hyperverbal) Affect: labile, euthymic (expansive at times), anxious Mood is: other ("manic") Thought process: tangential, looseness of associations Thought content: reality based without delusions Suicidal thought are: present Homicidal thoughts are: denied Hallucinations: denies auditory, denies visual Cognition: memory grossly intact, language grossly intact Intelligence estimated to be: consistent with level of education Insight: impaired Judgement: impaired Impression Tolerating Risperdal and have increased to 1.5 mg HS, and agreed to start Depakote on 11/21. His behavior is appropriate, but his thoughts remain fast, with tangential disconnected thinking. He remains opposed, in general, to psych meds and so taking a slow course with meds may be helpful in winning his support to continue after discharge. His sutures were removed 11/21, and wound without signs of infection. Plan (1) Bipolar disorder, unspecified Patient has history of bipolar disorder, but has been noncompliant with outpatient treatment and medications. Would recommend Depakote, but he is not sure if he is willing to accept mood stabilizing medication at this time. We will continue risperidone 1 mg daily at bedtime, and we'll check fasting labs tomorrow. He will need ongoing education about his diagnosis and the risks of continued noncompliance with treatment. Recommend outpatient psychiatric follow-up and therapy. Recommend family meeting with girlfriend and mother. Need to ensure he will not of access to guns after discharge. Every 15 minute checks and encourage participation in unit groups and programming. Work on discharge safety plan. 11/20 - Continue current meds. Will increase tomorrow if tolerating. 11/21 - Increase Risperdal to 1.5 mg HS - Add Depakote DR 250 mg. BID titrating as tolerated - Family meeting with mother and girlfriend held, and second meeting scheduled with girlfriend for Thursday. 11/22 - 11/23 - Continue current meds. (2) Opiate misuse Patient was given a 4 day supply of [place] when he was seen in the emergency room. We will not continue this here, due to ongoing substance abuse and as it was intended for short-term treatment of pain. We will offer Tylenol and ibuprofen as needed. (3) Cannabis abuse Patient has been educated about the risks of ongoing cannabis use, including exacerbation of his mood disorder and psychotic symptoms, and the recommendations for abstinence. (4) Alcohol abuse The patient's AUDIT score and history suggest problematic drinking (Zone III WHO ). Brief intervention was offered and patient was poorly receptive. He minimizes his substance abuse, and is not willing to make changes. Intervention was greater than 5 min in length. Brief interventions include: 1. Assess Readiness to Quit, 2. Advise: Help Patient to Reduce or Abstain from Alcohol, 3. Agree: Set Specific, Feasible Goals, 4. Assist: Anticipate barriers, Problem-Solving Solutions. Social work to 5. Arrange: Referrals to appropriate treatment. Summary of intervention: The patient is in precontemplation stage with regards to transtheoretical model of change. The patient is advised to decrease alcohol consumption due to depressant effects and risk of interactions with prescription medications. The patient will be provided with recovery materials to continue to education self on how to cope with their condition without drinking. (5) Laceration Complete course of Keflex and Cipro. Discussed case with Dr. Trixie Palomares, who saw him in the emergency room and again yesterday, and she reports he will need a dressing change (wound care nurse consulted) tomorrow, continue antibiotics awaiting sensitivity, and will need sutures removed in 2 days. He will not likely need further plastic surgery follow up. 11/20 Suture removal tomorrow 11/21 11/21 - Remove sutures today Visit Code E&M Code: 76041 Inventory Assets Strengths: "I'm athletic, I can shoot. Risk Factors Assessment Male: Yes : Yes /single/: No Higher / Fall in social status: No Access to guns: No Health problems: Yes Mental Health Diagnoses: Yes Substance use disorders: Yes Previous attempt: Yes Family history of suicide: No Previous psychiatric stay: Yes Smoker: Yes Protective Factors Assessment Jewish beliefs: Yes : No Responsible for young children: No Employed: Yes Stable relationships: Yes Supportive family: Yes Good rapport with provider: No Data Vital Signs Last 24 Hrs: Date Time Temp Pulse Resp B/P (MAP) Pulse Ox O2 Delivery O2 Flow Rate FiO2 11/23/16 07:07 36.4 67 16 110/67 82 121/82 Meds Administered Last 24 Hrs: Meds Administered (Past 24Hrs) Medications (Trade) Dose Ordered Sig/[place] Route Start Time Stop Time Status Last Admin Dose Admin Divalproex Sodium (Depakote Delay Rel Tab) 250 mg BID PO 11/21/16 22:00 12/21/16 21:59 11/22/16 22:13 250 MG Divalproex Sodium (Depakote Delay Rel Tab) 250 mg 1314 ONCE PO 11/21/16 13:14 11/21/16 13:21 DC 11/21/16 13:43 250 MG Problem Qualifiers (1) Bipolar disorder, unspecified: Active/Remission status: currently active Current bipolar episode type: mixed Current episode severity: severe Psychotic features: without psychotic features Qualified Codes: F31.63 - Bipolar disorder, current episode mixed, severe, without psychotic features
[2016-11-23] MEDS: CIPROFLOXACIN 500 MG TAB PO SCH ×2 (09:01→22:20)
[2016-11-23] MEDS: CEPHALEXIN MONOHYDRATE 500 MG CAP PO SCH ×3 (09:01→22:21)
[2016-11-23] MEDS: DIVALPROEX SODIUM 250 MG DELAY REL TAB PO SCH ×2 (09:02→22:21)
[2016-11-23 12:01] VITALS: BP 99/67; PULSE 80; TEMP 36.8
[2016-11-23] MEDS: IBUPROFEN 200 MG TAB PO PRN (19:38)
[2016-11-23] MEDS: RISPERIDONE 1 MG TAB PO SCH (22:21)
[2016-11-24 07:05] VITALS: BP_SYST 124; BP_SYST 128; BP_DIAS 77; BP_DIAS 81; PULSE 73; PULSE 83; TEMP 36.5
[2016-11-24] MEDS: DIVALPROEX SODIUM 250 MG DELAY REL TAB PO SCH ×2 (08:19→22:14)
[2016-11-24] MEDS: CEPHALEXIN MONOHYDRATE 500 MG CAP PO SCH ×3 (08:19→22:14)
[2016-11-24] MEDS: CIPROFLOXACIN 500 MG TAB PO SCH ×2 (08:19→22:14)
--- NOTE | 2016-11-24 10:42 | Psychiatric Progress Notes ---
Progress Note Date of Service Nov 24, 2016. Interval History 46-year-old white male who lives in [place] with his girlfriend, has a history of bipolar disorder not otherwise specified, treatment noncompliance, alcohol, cannabis, and opiate abuse, who presented to the emergency room with police for erratic behavior and was admitted voluntarily after he endorsed suicidal thoughts with a plan to hang himself. He also has a forehead laceration he sustained 8 days ago after he slipped and fell in a [place] and hit his head, which became infected, and is being treated by Dr. Trixie Palomares. He does not currently have any outpatient psychiatric providers, does not take medications, and presents with mood lability, agitation, and suicidal thoughts. Chief Complaint "going with the flow". Subjective Patient was seen & assessed interval progress reviewed with Treatment Team. Patient is cooperative and pleasant with staff and peers. He continues to be hyperverbal but feels that he has "slow down" a little. He bounces from topic to topic during the interview but is relatively coherent. He is developing insight about how his bipolar disorder has impacted his life and is voicing desire to continue treatment as an outpatient. In the next breath he says "well it's just human nature to stop taking pills, I'm not a pill popper." He denies suicidal ideation today but says that he has these thoughts when he is alone and states "if I didn't have a belief system, I wouldn't be here" and indicates he is referring to his belief in God. He denies any side effects from his medication. He is willing to have his medication increased. He understands that arrangements for after care are difficult until after his MA application is approved. Forehead bandage removed yesterday and laceration healing without signs of infection. Review of Systems Constitutional: No fever, No chills, No sweats, No weight loss, No weakness, No fatigue, No problem reported Cardiovascular: No chest pain, No orthopnea, No PND, No edema, No claudication , No palpitations, No problem reported Neurologic: No memory loss, No paralysis, No weakness, No numbness/tingling, No vertigo, No balance problems, No problem reported Integumentary: + problem reported (laceration on forehead slightly tender to touch, healing well. ) Sleep Information Total Hours of Sleep: 5.75 Meal Information Percent of Breakfast Consumed: 100 Percent of Lunch Consumed: 100 Percent of Dinner Consumed: 100 Mental Status Exam During interview pt is: alert and oriented, cooperative Appearance: appropriately dressed (shorts and t-shirt, large bandage on forehead), disheveled Eye contact is: fair Motor behavior is: steady gait & station, no abnormal motor movements Speech: loud, other (pressured and hyperverbal) Affect: euthymic (expansive at times) Mood is: other ("a little slower." ) Thought process: tangential, looseness of associations Thought content: reality based without delusions Suicidal thought are: present Homicidal thoughts are: denied Hallucinations: denies auditory, denies visual Cognition: memory grossly intact, language grossly intact Intelligence estimated to be: consistent with level of education Insight: impaired Judgement: impaired Impression Tolerating Risperdal and have increased to 1.5 mg HS, and agreed to start Depakote on 11/21. His behavior is appropriate, but his thoughts remain fast, with tangential disconnected thinking. He remains opposed, in general, to psych meds and so taking a slow course with meds may be helpful in winning his support to continue after discharge. His sutures were removed 11/21, and wound without signs of infection. Plan (1) Bipolar disorder, unspecified Patient has history of bipolar disorder, but has been noncompliant with outpatient treatment and medications. Would recommend Depakote, but he is not sure if he is willing to accept mood stabilizing medication at this time. We will continue risperidone 1 mg daily at bedtime, and we'll check fasting labs tomorrow. He will need ongoing education about his diagnosis and the risks of continued noncompliance with treatment. Recommend outpatient psychiatric follow-up and therapy. Recommend family meeting with girlfriend and mother. Need to ensure he will not of access to guns after discharge. Every 15 minute checks and encourage participation in unit groups and programming. Work on discharge safety plan. 11/20 - Continue current meds. Will increase tomorrow if tolerating. 11/21 - Increase Risperdal to 1.5 mg HS - Add Depakote DR 250 mg. BID titrating as tolerated - Family meeting with mother and girlfriend held, and second meeting scheduled with girlfriend for Thursday. 11/22 - 11/23 - Continue current meds. 11/24 Family meeting today. Discharge planning difficult until MA in place. Patient agreeable to titrate Depakote but will wait to see how patient tolerates Risperdal increase. (2) Opiate misuse Patient was given a 4 day supply of [place] when he was seen in the emergency room. We will not continue this here, due to ongoing substance abuse and as it was intended for short-term treatment of pain. We will offer Tylenol and ibuprofen as needed. (3) Cannabis abuse Patient has been educated about the risks of ongoing cannabis use, including exacerbation of his mood disorder and psychotic symptoms, and the recommendations for abstinence. (4) Alcohol abuse The patient's AUDIT score and history suggest problematic drinking (Zone [place] WHO ). Brief intervention was offered and patient was poorly receptive. He minimizes his substance abuse, and is not willing to make changes. Intervention was greater than 5 min in length. Brief interventions include: 1. Assess Readiness to Quit, 2. Advise: Help Patient to Reduce or Abstain from Alcohol, 3. Agree: Set Specific, Feasible Goals, 4. Assist: Anticipate barriers, Problem-Solving Solutions. Social work to 5. Arrange: Referrals to appropriate treatment. Summary of intervention: The patient is in precontemplation stage with regards to transtheoretical model of change. The patient is advised to decrease alcohol consumption due to depressant effects and risk of interactions with prescription medications. The patient will be provided with recovery materials to continue to education self on how to cope with their condition without drinking. (5) Laceration Complete course of Keflex and Cipro. Discussed case with Dr. Trixie Palomares, who saw him in the emergency room and again yesterday, and she reports he will need a dressing change (wound care nurse consulted) tomorrow, continue antibiotics awaiting sensitivity, and will need sutures removed in 2 days. He will not likely need further plastic surgery follow up. 11/20 Suture removal tomorrow 11/21 11/21 - Remove sutures today Visit Code E&M Code: 67489 Inventory Assets Strengths: "I'm athletic, I can shoot. Risk Factors Assessment Male: Yes : Yes /single/: No Higher / Fall in social status: No Access to guns: No Health problems: Yes Mental Health Diagnoses: Yes Substance use disorders: Yes Previous attempt: Yes Family history of suicide: No Previous psychiatric stay: Yes Smoker: Yes Protective Factors Assessment Mosque beliefs: Yes : No Responsible for young children: No Employed: Yes Stable relationships: Yes Supportive family: Yes Good rapport with provider: No Data Vital Signs Last 24 Hrs: Date Time Temp Pulse Resp B/P (MAP) Pulse Ox O2 Delivery O2 Flow Rate FiO2 11/24/16 07:05 36.5 73 17 128/77 83 124/81 11/23/16 12:01 36.8 80 16 99/67 Meds Administered Last 24 Hrs: Current Inpatient Medications Medications (Trade) Dose Ordered Sig/[place] Route Start Time Stop Time Status Last Admin Dose Admin Acetaminophen (Tylenol Tab) 650 mg Q4H PRN PO 11/18/16 22:30 12/18/16 22:29 Al Hydroxide/Mg Hydroxide (Maalox Susp) 30 ml Q4H PRN PO 11/18/16 22:30 12/18/16 22:29 Bismuth Subsalicylate (Kaopectate Liqd) 15 ml DAILY PRN PO 11/18/16 22:30 12/18/16 22:29 Magnesium Hydroxide (Milk Of Magnesia Susp) 30 ml DAILY PRN PO 11/18/16 22:30 12/18/16 22:29 Sodium Chloride ([place] Nasal [place]) PRN PRN NA 11/18/16 22:30 12/18/16 22:29 Hydroxyzine HCl (Vistaril Tab) 50 mg HSZ PRN PO 11/18/16 22:30 12/18/16 22:29 Hydroxyzine HCl (Vistaril Tab) 25 mg Q4H PRN PO 11/18/16 22:30 12/18/16 22:29 Cephalexin Monohydrate (Keflex Cap) 500 mg TID PO 11/18/16 22:30 11/25/16 14:01 11/24/16 08:19 500 MG Ciprofloxacin (Cipro Tab) 500 mg BID PO 11/18/16 22:30 11/25/16 09:01 11/24/16 08:19 500 MG Ibuprofen (Advil Tab) 400 mg Q8H PRN PO 11/18/16 22:45 12/18/16 22:44 11/23/16 19:38 400 MG Risperidone (Risperdal Tab) 0.5 mg Q6H PRN PO 11/18/16 22:45 12/18/16 22:44 Risperidone (Risperdal Tab) 1 mg HS PO 11/19/16 22:00 12/19/16 21:59 11/23/16 22:21 1 MG Divalproex Sodium (Depakote Delay Rel Tab) 250 mg BID PO 11/21/16 22:00 12/21/16 21:59 11/24/16 08:19 250 MG Problem Qualifiers (1) Bipolar disorder, unspecified: Active/Remission status: currently active Current bipolar episode type: mixed Current episode severity: severe Psychotic features: without psychotic features Qualified Codes: F31.63 - Bipolar disorder, current episode mixed, severe, without psychotic features
[2016-11-24] MEDS: IBUPROFEN 200 MG TAB PO PRN ×2 (14:07→23:38)
[2016-11-24] MEDS: RISPERIDONE 0.5 MG TAB PO SCH (22:15)
[2016-11-24] MEDS: RISPERIDONE 0.5 MG TAB PO PRN (23:38)
[2016-11-25 06:59] VITALS: BP_SYST 118; BP_SYST 119; BP_DIAS 69; BP_DIAS 77; PULSE 75; PULSE 86; TEMP 36.4
[2016-11-25] MEDS: CEPHALEXIN MONOHYDRATE 500 MG CAP PO SCH ×2 (08:54→13:53)
[2016-11-25] MEDS: DIVALPROEX SODIUM 250 MG DELAY REL TAB PO SCH (08:54)
[2016-11-25] MEDS: CIPROFLOXACIN 500 MG TAB PO SCH (08:54)
--- NOTE | 2016-11-25 11:46 | Medical Student: BHU Only ---
Psychiatric Progress Note Date of Service: Nov 25, 2016. CC: "I'm doing okay, doc." HPI: Figueroa Dobbs is a 46 yo male with a long history of untreated bipolar disorder who has been resistant to medication or treatment. His manic symptoms have improved somewhat since his admission 7 days ago, but he remains hyperverbal and suspicious of the benefits to snf treatment and medications. He attributes this hesitation to side effects experienced while in [place] more than 20 years ago. Today he notes he feels about 50% better since admission, and admits that this is likely due to the medications (Risperdal and Depakote) that he has been taking since admission. He states he is sensitive to medications, but he would be willing to try increasing the Risperdal to see if he can be 75% better instead of just 50%. He notes he has not experienced any side effects on these new medications like in the past, and he could probably keep taking them. He remains hesitant to commit to long-term medication compliance however. Figueroa remains pleasant with staff and peers, but occasionally needs to be redirected if he becomes hyperverbal or inappropriate in conversation. He was not happy his girlfriend did not show for their meeting last night. ROS: Endorses racing thoughts at times, but slower than previous days. Still has some "stabs" of pain on forehead due to laceration healing. Ten point review of systems otherwise negative. Objective: General: Somewhat disheveled appearing male, appears congruent with stated age. Psych: During conversation, Figueroa is alert, oriented, cooperative and mostly logical. Appears to be appropriately dressed but somewhat disheveled. Eye contact is good, with some slight fidgeting that he can stop when he becomes aware of it. No other abnormal motor movements. Gait is steady. Speech volume is appropriate during conversation, less pressured and hyperverbal than yesterday. Affect is controlled but not constricted. Thought process is goal oriented and reality based without delusions. Loosely tangential at times. Suicidal thoughts remain present "always there" but without any plans to act on them. No homicidal thoughts. No auditory or visual hallucinations. Memory and cognition intact. Intelligence consistent with level of education (no high school diploma), and judgement and insight are not impaired this morning. Integumentary: Several lacerations on legs and one on forehead. All appear to be healing well, no signs of inflammation or infection. Last Vital Signs Documentation Date Time Temp Pulse Resp B/P (MAP) Pulse Ox O2 Delivery O2 Flow Rate FiO2 11/25/16 06:59 36.4 75 18 119/69 86 118/77 11/18/16 22:10 99 Room Air Recent Labs: Test 11/18/16 18:15 11/18/16 19:20 11/20/16 07:16 Urine Color YELLOW Urine Appearance CLEAR Urine pH 5.5 Urine Specific [place] 1.023 Urine Protein NEG Urine Glucose (UA) NEG Urine Ketones NEG Urine Occult Blood NEG Urine Nitrite NEG Urine Bilirubin NEG Urine Urobilinogen NEG Urine Leukocyte Esterase NEG Urine Synthetic Stimulants Pending Urine Opiates Screen POS Urine Codeine Confirmation (GC/MS) NEGATIVE Urine Morphine Confirm (GC/MS) 170 Urine Hydrocodone Confirm (GC/MS) NEGATIVE Urine Norhydrocodone NEGATIVE Urine Noroxycodone NEGATIVE Urine Oxycodone Confirm (GC/MS) NEGATIVE Urine Oxymorphone Confirm (GC/MS) NEGATIVE Urine Methadone, Qualitative NEG Urine Hydromorphone Confirm (GC/MS) NEGATIVE Urine Barbiturates NEG Urine Phencyclidine (PCP) Level NEG Ur Amphetamine/Methamphetamine NEG MDMA (Ecstasy) Screen NEG Urine Benzodiazepines Screen NEG Urine Cocaine Metabolite NEG Cannabinoids Comment Pending Urine Synthetic Cannabinoids Pending Ur Synthetic Cannabinoids Confirm Pending Urine Marijuana (THC) NEG White Blood Count 5.02 Red Blood Count 4.99 Hemoglobin 15.1 Hematocrit 42.8 Mean Corpuscular Volume 85.8 Mean Corpuscular Hemoglobin 30.3 Mean Corpuscular Hemoglobin Concent 35.3 Platelet Count 236 Mean Platelet Volume 9.0 Neutrophils (%) (Auto) 62.1 Lymphocytes (%) (Auto) 26.9 Monocytes (%) (Auto) 8.0 Eosinophils (%) (Auto) 2.6 Basophils (%) (Auto) 0.2 Neutrophils # (Auto) 3.12 Lymphocytes # (Auto) 1.35 Monocytes # (Auto) 0.40 Eosinophils # (Auto) 0.13 Basophils # (Auto) 0.01 RDW Standard Deviation 40.3 RDW Coefficient of Variation 12.9 Immature Granulocyte % (Auto) 0.2 Immature Granulocyte # (Auto) 0.01 Sodium Level 139 Potassium Level 3.8 Chloride Level 106 Carbon Dioxide Level 28 Anion Gap 5.0 Blood Urea Nitrogen 15 Creatinine 1.00 Est Creatinine Clear Calc Drug Dose 97.2 Estimated GFR () 103.4 Estimated GFR (Non- 89.2 BUN/Creatinine Ratio 14.7 Random Glucose 94 Calcium Level 9.3 Total Bilirubin 1.1 Direct Bilirubin 0.2 Aspartate Amino Transferase (AST) 23 Alanine Aminotransferase (ALT) 30 Alkaline Phosphatase 67 Total Protein 7.6 Albumin 3.5 Thyroid Stimulating Hormone (TSH) 1.160 Salicylates Level < 1.7 Acetaminophen Level < 2 Ethyl Alcohol mg/dL < 3.0 Fasting Glucose 106 Triglycerides Level 139 Cholesterol Level 151 HDL Cholesterol 35 LDL Cholesterol, Calculated 88 VLDL Cholesterol, Calculated 28 Cholesterol/HDL Ratio 4.3 Assessment and Plan: Figueroa is a 46 yo male with a long history of untreated bipolar disorder on [facility] day 7. He is showing some improvement in his manic symptoms and has been complaint with his Risperdal 1.5mg and Depakote, and notes no side effects on these medications. He remains non-committal to long-term med compliance. 1. Bipolar disorder: Persistent, "50%" improved with Risperdal and Depakote. Denies current side effects from either medication but remains non committed to long-term medication adherence. Is willing to increase Risperdal today to possibly be "75%" better. Will need to continue to emphasize need to take medications, and will address family pattern of abandonment by his father and now him towards his kids. Could use medications to break this cycle. Will need to reschedule family meeting. Will need to create safety plan and med compliance plan for discharge. 2. Substance abuse: Has abused alcohol, cannabis, opioids and other recreational drugs in the past. 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 Will need to continue to discuss abstinence from these substances to not interfere with medications and progress. He is more likely to abuse these substances during manic periods. 3. Frontal laceration: Sutures removed 11/21, continues to be clear of signs of infection or inflammation. Complete course of Keflex and Cipro, no f/u with plastic surgery needed per Dr. Palomares. 4. Disposition: LOS 2-4 days. Still having manic/hypomanic thoughts and actions. Will see how he does with increased Risperdal tomorrow.
[2016-11-25 13:29] LABS: SYNTHETIC CANNABINOIDS QL URIN NEGATIVE (Negative)
[2016-11-25] MEDS: IBUPROFEN 200 MG TAB PO PRN (13:40)
--- NOTE | 2016-11-25 13:47 | Psychiatric Progress Notes ---
Progress Note Date of Service Nov 25, 2016. Interval History 46-year-old white male who lives in [place] with his girlfriend, has a history of bipolar disorder not otherwise specified, treatment noncompliance, alcohol, cannabis, and opiate abuse, who presented to the emergency room with police for erratic behavior and was admitted voluntarily after he endorsed suicidal thoughts with a plan to hang himself. He also has a forehead laceration he sustained 8 days ago after he slipped and fell in a [place] and hit his head, which became infected, and is being treated by Dr. Trixie Palomares. He does not currently have any outpatient psychiatric providers, does not take medications, and presents with mood lability, agitation, and suicidal thoughts. Chief Complaint "I need something for my teeth pain. ". Subjective Patient was seen & assessed interval progress reviewed with Treatment Team. The patient is distressed by teeth pain today. He says that he has an abscess in the left upper that he "popped" several days ago, but is having trouble chewing. The pain is interfering with his ability to sleep. In turn, his mood is down and says that he has been having "mood swings. It goes with the territory.". He feels frustrated with all that he has to deal with including not having a job or money, or insurance to deal with his teeth needs. He says that he has been going to groups and is "on a good streak" in groups. He continues to deny SI/HI, denies aud/vis hallucinations. His thoughts remain fast as does his speech, frequently talking over others. Review of Systems Constitutional: + problem reported (teeth pain) Respiratory: No cough, No sputum, No wheezing, No shortness of breath, No dyspnea on exertion, No dyspnea at rest, No hemoptysis, No problem reported Cardiovascular: No chest pain, No orthopnea, No PND, No edema, No claudication , No palpitations, No problem reported Abdomen: No pain, No nausea, No vomiting, No diarrhea, No constipation, No GI bleeding, No problem reported Musculoskeletal: No joint pain, No muscle pain, No swelling, No calf pain, No problem reported Neurologic: No memory loss, No paralysis, No weakness, No numbness/tingling, No vertigo, No balance problems, No problem reported Psychiatric: + problem reported (moods up and down) Integumentary: + problem reported (healing lac on forehead) Sleep Information Total Hours of Sleep: 6.00 Meal Information Percent of Breakfast Consumed: 100 Percent of Lunch Consumed: 75 Percent of Dinner Consumed: 100 Mental Status Exam During interview pt is: alert and oriented, cooperative Appearance: disheveled Eye contact is: fair Motor behavior is: steady gait & station, no abnormal motor movements Speech: loud, other (rapid) Affect: blunted Mood is: other ("mood swings") Thought process: tangential, looseness of associations Thought content: reality based without delusions Suicidal thought are: denied Homicidal thoughts are: denied Hallucinations: denies auditory, denies visual Cognition: memory grossly intact, language grossly intact Intelligence estimated to be: consistent with level of education Insight: impaired Judgement: impaired Impression The patient remains with rapid thoughts and speech, and so will increase Depakote to 500 mg. BID. Will also order naproxen 250 mg. BID for teeth pain, and have suggested that if he has no insurance that he call [facility] after discharge. Is still on Keflex but course will be done in the next 24 hrs.. Will continue Risperdal 1.5 mg. HS. GF did not show up for the family meeting that she requested yesterday, and so will explore whether she wants to reschedule. Plan (1) Bipolar disorder, unspecified Patient has history of bipolar disorder, but has been noncompliant with outpatient treatment and medications. Would recommend Depakote, but he is not sure if he is willing to accept mood stabilizing medication at this time. We will continue risperidone 1 mg daily at bedtime, and we'll check fasting labs tomorrow. He will need ongoing education about his diagnosis and the risks of continued noncompliance with treatment. Recommend outpatient psychiatric follow-up and therapy. Recommend family meeting with girlfriend and mother. Need to ensure he will not of access to guns after discharge. Every 15 minute checks and encourage participation in unit groups and programming. Work on discharge safety plan. 11/20 - Continue current meds. Will increase tomorrow if tolerating. 11/21 - Increase Risperdal to 1.5 mg HS - Add Depakote DR 250 mg. BID titrating as tolerated - Family meeting with mother and girlfriend held, and second meeting scheduled with girlfriend for Thursday. 11/22 - 11/23 - Continue current meds. 11/24 Family meeting today. Discharge planning difficult until MA in place. Patient agreeable to titrate Depakote but will wait to see how patient tolerates Risperdal increase. 11/25 - Increase Depakote to 500 mg. BID (2) Opiate misuse Patient was given a 4 day supply of [place] when he was seen in the emergency room. We will not continue this here, due to ongoing substance abuse and as it was intended for short-term treatment of pain. We will offer Tylenol and ibuprofen as needed. (3) Cannabis abuse Patient has been educated about the risks of ongoing cannabis use, including exacerbation of his mood disorder and psychotic symptoms, and the recommendations for abstinence. (4) Alcohol abuse The patient's AUDIT score and history suggest problematic drinking (Zone III WHO ). Brief intervention was offered and patient was poorly receptive. He minimizes his substance abuse, and is not willing to make changes. Intervention was greater than 5 min in length. Brief interventions include: 1. Assess Readiness to Quit, 2. Advise: Help Patient to Reduce or Abstain from Alcohol, 3. Agree: Set Specific, Feasible Goals, 4. Assist: Anticipate barriers, Problem-Solving Solutions. Social work to 5. Arrange: Referrals to appropriate treatment. Summary of intervention: The patient is in precontemplation stage with regards to transtheoretical model of change. The patient is advised to decrease alcohol consumption due to depressant effects and risk of interactions with prescription medications. The patient will be provided with recovery materials to continue to education self on how to cope with their condition without drinking. (5) Laceration Complete course of Keflex and Cipro. Discussed case with Dr. Trixie Palomares, who saw him in the emergency room and again yesterday, and she reports he will need a dressing change (wound care nurse consulted) tomorrow, continue antibiotics awaiting sensitivity, and will need sutures removed in 2 days. He will not likely need further plastic surgery follow up. 11/20 Suture removal tomorrow 11/21 11/21 - Remove sutures today Visit Code E&M Code: 13451 Inventory Assets Strengths: "I'm athletic, I can shoot. Risk Factors Assessment Male: Yes : Yes /single/: No Higher / Fall in social status: No Access to guns: No Health problems: Yes Mental Health Diagnoses: Yes Substance use disorders: Yes Previous attempt: Yes Family history of suicide: No Previous psychiatric stay: Yes Smoker: Yes Protective Factors Assessment Latter Day beliefs: Yes : No Responsible for young children: No Employed: Yes Stable relationships: Yes Supportive family: Yes Good rapport with provider: No Data Vital Signs Last 24 Hrs: Date Time Temp Pulse Resp B/P (MAP) Pulse Ox O2 Delivery O2 Flow Rate FiO2 11/25/16 06:59 36.4 75 18 119/69 86 118/77 Meds Administered Last 24 Hrs: Meds Administered (Past 24Hrs) Medications (Trade) Dose Ordered Sig/[place] Route Start Time Stop Time Status Last Admin Dose Admin Risperidone (Risperdal Tab) 1.5 mg HS PO 11/24/16 22:00 12/19/16 21:59 11/24/16 22:15 1.5 MG Lab Results Last 24 Hrs: 11/18/16 19:20 Red Blood Count 4.99, Mean Corpuscular Volume 85.8, Mean Corpuscular Hemoglobin 30.3, Mean Corpuscular Hemoglobin Concent 35.3, Mean Platelet Volume 9.0, Neutrophils (%) (Auto) 62.1, Lymphocytes (%) (Auto) 26.9, Monocytes (%) (Auto) 8.0, Eosinophils (%) (Auto) 2.6, Basophils (%) (Auto) 0.2, Neutrophils # (Auto) 3.12, Lymphocytes # (Auto) 1.35, Monocytes # (Auto) 0.40, Eosinophils # (Auto) 0.13, Basophils # (Auto) 0.01 11/18/16 19:20 Test 11/18/16 18:15 11/18/16 19:20 11/20/16 07:16 Urine Color YELLOW Urine Appearance CLEAR (CLEAR) Urine pH 5.5 (4.5-7.5) Urine Specific [place] 1.023 (1.000-1.030) Urine Protein NEG (NEG) Urine Glucose (UA) NEG (NEG) Urine Ketones NEG (NEG) Urine Occult Blood NEG (NEG) Urine Nitrite NEG (NEG) Urine Bilirubin NEG (NEG) Urine Urobilinogen NEG (NEG) Urine Leukocyte Esterase NEG (NEG) Urine Synthetic Stimulants see note Urine Opiates Screen POS (NEG) Urine Codeine Confirmation (GC/MS) NEGATIVE NG/ML (CUTOFF=50) Urine Morphine Confirm (GC/MS) 170 NG/ML (CUTOFF=50) Urine Hydrocodone Confirm (GC/MS) NEGATIVE NG/ML (CUTOFF=50) Urine Norhydrocodone NEGATIVE NG/ML (CUTOFF=50) Urine Noroxycodone NEGATIVE NG/ML (CUTOFF=50) Urine Oxycodone Confirm (GC/MS) NEGATIVE NG/ML (CUTOFF=50) Urine Oxymorphone Confirm (GC/MS) NEGATIVE NG/ML (CUTOFF=50) Urine Methadone, Qualitative NEG (NEG) Urine Hydromorphone Confirm (GC/MS) NEGATIVE NG/ML (CUTOFF=50) Urine Barbiturates NEG (NEG) Urine Phencyclidine (PCP) Level NEG (NEG) Ur Amphetamine/Methamphetamine NEG (NEG) MDMA (Ecstasy) Screen NEG (NEG) Urine Benzodiazepines Screen NEG (NEG) Urine Cocaine Metabolite NEG (NEG) Cannabinoids Comment see note Urine Synthetic Cannabinoids NEGATIVE (Negative) Ur Synthetic Cannabinoids Confirm (()) Urine Marijuana (THC) NEG (NEG) White Blood Count 5.02 K/uL (4.8-10.8) Red Blood Count 4.99 M/uL (4.7-6.1) Hemoglobin 15.1 g/dL (14.0-18.0) Hematocrit 42.8 % (42-52) Mean Corpuscular Volume 85.8 fL (80-100) Mean Corpuscular Hemoglobin 30.3 pg (25-34) Mean Corpuscular Hemoglobin Concent 35.3 g/dl (32-36) Platelet Count 236 K/uL (130-400) Mean Platelet Volume 9.0 fL (7.4-10.4) Neutrophils (%) (Auto) 62.1 % Lymphocytes (%) (Auto) 26.9 % Monocytes (%) (Auto) 8.0 % Eosinophils (%) (Auto) 2.6 % Basophils (%) (Auto) 0.2 % Neutrophils # (Auto) 3.12 K/uL (1.4-6.5) Lymphocytes # (Auto) 1.35 K/uL (1.2-3.4) Monocytes # (Auto) 0.40 K/uL (0.11-0.59) Eosinophils # (Auto) 0.13 K/uL (0-0.5) Basophils # (Auto) 0.01 K/uL (0-0.2) RDW Standard Deviation 40.3 fL (36.4-46.3) RDW Coefficient of Variation 12.9 % (11.5-14.5) Immature Granulocyte % (Auto) 0.2 % Immature Granulocyte # (Auto) 0.01 K/uL (0.00-0.02) Anion Gap 5.0 mmol/L (3-11) Est Creatinine Clear Calc Drug Dose 97.2 ml/min Estimated GFR () 103.4 Estimated GFR (Non- 89.2 BUN/Creatinine Ratio 14.7 (10-20) Calcium Level 9.3 mg/dl (8.5-10.1) Total Bilirubin 1.1 mg/dl (0.2-1) Direct Bilirubin 0.2 mg/dl (0-0.2) Aspartate Amino Transf (AST/SGOT) 23 U/L (15-37) Alanine Aminotransferase (ALT/SGPT) 30 U/L (12-78) Alkaline Phosphatase 67 U/L (45-117) Total Protein 7.6 gm/dl (6.4-8.2) Albumin 3.5 gm/dl (3.4-5.0) Thyroid Stimulating Hormone (TSH) 1.160 uIu/ml (0.300-4.500) Salicylates Level < 1.7 mg/dl (2.8-20) Acetaminophen Level < 2 ug/ml (10-30) Ethyl Alcohol mg/dL < 3.0 mg/dl (0-3) Fasting Glucose 106 mg/dl (70-99) Triglycerides Level 139 mg/dl (0-150) Cholesterol Level 151 mg/dl (0-200) HDL Cholesterol 35 mg/dl LDL Cholesterol, Calculated 88 mg/dl VLDL Cholesterol, Calculated 28 mg/dl Cholesterol/HDL Ratio 4.3 Problem Qualifiers (1) Bipolar disorder, unspecified: Active/Remission status: currently active Current bipolar episode type: mixed Current episode severity: severe Psychotic features: without psychotic features Qualified Codes: F31.63 - Bipolar disorder, current episode mixed, severe, without psychotic features
[2016-11-25] MEDS: DIVALPROEX SODIUM 500 MG DELAY RELEASE TAB PO SCH (22:02)
[2016-11-25] MEDS: NAPROXEN 250 MG TAB PO SCH (22:02)
[2016-11-25] MEDS: RISPERIDONE 0.5 MG TAB PO SCH (22:02)
[2016-11-26 06:51] VITALS: BP_SYST 120; BP_SYST 127; BP_DIAS 74; BP_DIAS 89; PULSE 66; PULSE 86; TEMP 36.5
--- NOTE | 2016-11-26 08:13 | Psychiatric Progress Notes ---
Progress Note Date of Service Nov 26, 2016. Interval History 46-year-old white male who lives in [place] with his girlfriend, has a history of bipolar disorder not otherwise specified, treatment noncompliance, alcohol, cannabis, and opiate abuse, who presented to the emergency room with police for erratic behavior and was admitted voluntarily after he endorsed suicidal thoughts with a plan to hang himself. He also has a forehead laceration he sustained 8 days ago after he slipped and fell in a [place] and hit his head, which became infected, and is being treated by Dr. Trixie Palomares. He does not currently have any outpatient psychiatric providers, does not take medications, and presents with mood lability, agitation, and suicidal thoughts. Chief Complaint "Better since I got some sleep". Subjective Patient was seen & assessed interval progress reviewed with Treatment Team. Staff report he attended unit programming yesterday, and discussed relationship difficulties with his girlfriend and his history of noncompliance with mental health treatment throughout his life. He is worried about his job, and has not contacted his boss, so is not sure if he still has a job. They have financial strain, and his girlfriend relies on him to help cover living expenses. He continues to be tangential and hyperverbal, and had to be redirected by staff due to inappropriate language. He was very upset, yelling, and swearing after a phone call with his girlfriend, and told staff he did not want his mother or girlfriend to be able to visit and requested to rescind the releases he had signed for them, when staff then offered the releases minutes later, he said he changed his mind and did not want to rescind them. This morning, [facility], to the service unit for case management, and to [facility] for a psychiatrist. On my assessment, the patient states that he was very irritable yesterday, which he attributes to poor sleep the night prior. He states he is feeling better today, as he had better sleep last night. He continues to express frustration with his girlfriend, whom he says is upset because she cannot afford the rent on her house, and he is stressed because he doesn't know if he still has a job. He says he doesn't want to call his boss, stating "I'm avoiding it, I'll deal with it when I get out." He says that if he talked to his boss now, he would "get mad, lose control, no med would be able to help me." He vacillates between expressing anger at being here in the hospital, and talking about how poorly he had been doing prior to hospitalization and the negative effects it was having on his life. He gives conflicting statements, at times stating that his life was falling apart prior to admission, and other times stating that he was "doing great before I came here." He says his girlfriend has not committed to remaining she doesn't have transportation, and he can't do it over the phone because her phone does not work well. He is not sure where he is going to live after discharge, stating "I can't answer those questions, loaded questions, I'm just trying to live for the day." He denies suicidal thoughts, but then states "I'm always going to have those thoughts, it's just human nature." He denies his current plan or intent to harm himself. He states that he has been working on the patient handbook, and finds it helpful. He talked about all the things he wants to do when he gets out of the hospital, including have a cigarette, go camping, and spending time outside in nature. Sleep Information Total Hours of Sleep: 6.00 Meal Information Percent of Breakfast Consumed: 100 Percent of Lunch Consumed: 75 Percent of Dinner Consumed: 100 Mental Status Exam During interview pt is: alert and oriented, cooperative Appearance: appropriately dressed, disheveled, other (large healing laceration on his forehead, no signs of infection) Eye contact is: fair Motor behavior is: steady gait & station, no abnormal motor movements Speech: loud, other (rapid, excessive, talks nonstop) Affect: other (expansive, but improved from admission) Mood is: other ("better now that I got some sleep") Thought process: tangential, looseness of associations Thought content: reality based without delusions Suicidal thought are: denied Homicidal thoughts are: denied Hallucinations: denies auditory, denies visual Cognition: memory grossly intact, language grossly intact Intelligence estimated to be: consistent with level of education Insight: impaired Judgement: impaired Impression Some improvement in mood stability, but continues to have rapid thoughts and speech, so Depakote was increased to 500 mg. BID on 11/25/2016. He has naproxen 250 mg. BID for tooth pain, and have suggested that if he has no insurance that he call [facility]. Will continue Risperdal 1.5 mg. HS. GF did not show up for the family meeting that she requested yesterday, and so will explore whether she wants to reschedule. He is being referred for aftercare. Plan (1) Bipolar disorder, unspecified Patient has history of bipolar disorder, but has been noncompliant with outpatient treatment and medications. Would recommend Depakote, but he is not sure if he is willing to accept mood stabilizing medication at this time. We will continue risperidone 1 mg daily at bedtime, and we'll check fasting labs tomorrow. He will need ongoing education about his diagnosis and the risks of continued noncompliance with treatment. Recommend outpatient psychiatric follow-up and therapy. Recommend family meeting with girlfriend and mother. Need to ensure he will not of access to guns after discharge. Every 15 minute checks and encourage participation in unit groups and programming. Work on discharge safety plan. 11/20 - Continue current meds. Will increase tomorrow if tolerating. 11/21 - Increase Risperdal to 1.5 mg HS - Add Depakote DR 250 mg. BID titrating as tolerated - Family meeting with mother and girlfriend held, and second meeting scheduled with girlfriend for Thursday. 11/22 - 11/23 - Continue current meds. 11/24 Family meeting today. Discharge planning difficult until MA in place. Patient agreeable to titrate Depakote but will wait to see how patient tolerates Risperdal increase. 11/25 - Increase Depakote to 500 mg. BID 11/26 - Attempt to reschedule meeting with girlfriend, as they continue to have a volatile relationship, and he lives with her. (2) Opiate misuse Patient was taking opiate pain meds from friends and the emergency room. We will not continue this here, due to ongoing substance abuse and as it was intended for short-term treatment of pain. We will offer Tylenol and ibuprofen as needed. (3) Cannabis abuse Patient has been educated about the risks of ongoing cannabis use, including exacerbation of his mood disorder and psychotic symptoms, and the recommendations for abstinence. (4) Alcohol abuse The patient's AUDIT score and history suggest problematic drinking (Zone III WHO ). Brief intervention was offered and patient was poorly receptive. He minimizes his substance abuse, and is not willing to make changes. Intervention was greater than 5 min in length. Brief interventions include: 1. Assess Readiness to Quit, 2. Advise: Help Patient to Reduce or Abstain from Alcohol, 3. Agree: Set Specific, Feasible Goals, 4. Assist: Anticipate barriers, Problem-Solving Solutions. Social work to 5. Arrange: Referrals to appropriate treatment. Summary of intervention: The patient is in precontemplation stage with regards to transtheoretical model of change. The patient is advised to decrease alcohol consumption due to depressant effects and risk of interactions with prescription medications. The patient will be provided with recovery materials to continue to education self on how to cope with their condition without drinking. (5) Laceration Complete course of Keflex and Cipro. Discussed case with Dr. Trixie Palomares, who saw him in the emergency room and again yesterday, and she reports he will need a dressing change (wound care nurse consulted) tomorrow, continue antibiotics awaiting sensitivity, and will need sutures removed in 2 days. He will not likely need further plastic surgery follow up. 11/20 Suture removal tomorrow 11/21 11/21 - Remove sutures today Discharge / Aftercare Planning Therapist: Name: Scottie PalaciosNat Milian SENIOR ENERGY TRADER Date of Appointment: Dec 01, 2016 Time of Appointment: 10:30am Appointment Notes: [address] [place] [address] [employer] Visit Code E&M Code: 49708 Inventory Assets Strengths: "I'm athletic, I can shoot. Risk Factors Assessment Male: Yes : Yes /single/: No Higher / Fall in social status: No Access to guns: No Health problems: Yes Mental Health Diagnoses: Yes Substance use disorders: Yes Previous attempt: Yes Family history of suicide: No Previous psychiatric stay: Yes Smoker: Yes Protective Factors Assessment Tenriism beliefs: Yes : No Responsible for young children: No Employed: Yes Stable relationships: Yes Supportive family: Yes Good rapport with provider: No Data Vital Signs Last 24 Hrs: Date Time Temp Pulse Resp B/P (MAP) Pulse Ox O2 Delivery O2 Flow Rate FiO2 11/26/16 06:51 36.5 66 16 120/74 86 127/89 Meds Administered Last 24 Hrs: Meds Administered (Past 24Hrs) Medications (Trade) Dose Ordered Sig/[place] Route Start Time Stop Time Status Last Admin Dose Admin Risperidone (Risperdal Tab) 1.5 mg HS PO 11/24/16 22:00 12/19/16 21:59 11/25/16 22:02 1.5 MG Divalproex Sodium (Depakote Delay Rel Tab) 500 mg BID PO 11/25/16 22:00 12/25/16 21:59 11/25/16 22:02 500 MG Naproxen (Naprosyn Tab) 250 mg BID PO 11/25/16 22:00 12/25/16 21:59 11/25/16 22:02 250 MG Problem Qualifiers (1) Bipolar disorder, unspecified: Active/Remission status: currently active Current bipolar episode type: mixed Current episode severity: severe Psychotic features: without psychotic features Qualified Codes: F31.63 - Bipolar disorder, current episode mixed, severe, without psychotic features
[2016-11-26] MEDS: NAPROXEN 250 MG TAB PO SCH ×2 (09:02→21:29)
[2016-11-26] MEDS: DIVALPROEX SODIUM 500 MG DELAY RELEASE TAB PO SCH ×2 (09:02→21:29)
--- NOTE | 2016-11-26 10:59 | Medical Student: BHU Only ---
Psychiatric Progress Note Date of Service: Nov 26, 2016. CC: "I'm doing okay, doc." HPI: Figueroa Dobbs is a 46 yo male with a long history of untreated bipolar disorder who has been resistant to medication or treatment. His manic symptoms have improved somewhat since his admission 8 days ago, but he remains hyperverbal and suspicious of the benefits to assisted treatment and medications. He attributes this hesitation to side effects experienced while in [place] more than 20 years ago. Today he feels better than yesterday, which he attributes to good sleep last night. He has not noticed a difference in how he feels since increasing the Depakote yesterday. He remains hesitant to commit to long-term medication compliance however. Figueroa remains pleasant with staff and peers, but needs to be redirected if he becomes hyperverbal or inappropriate in conversation. He was not happy with his girlfriend because her cell phone makes communication difficult. He says they have been together for a year, and he is not sure when she is coming in to see him next. Figueroa and I talked about his relationships with his sons, which he says he " has no relationship with them." One lives in [place] who he does not speak to, and his younger son, 14, is into "extracurricular activities like drinking, partying, and will end up in [facility] just like I did." He says that's probably a good thing because at least he will be safe. He worries he will get a call that his son has or overdosed. Initially he felt he could not change this course with his son, but when I asked him to think about what he needed as a teen, and what he didn't get, he said that was a good thought for starting fresh with his son. I encouraged him to think about this in group and possibly discuss as a group topic. ROS: Endorses racing thoughts at times, similar to yesterday. Still has some "stabs" of pain on forehead due to laceration healing. L upper jaw pain which he attributes to a previous abscess that has popped. Ten point review of systems otherwise negative. Objective: General: Somewhat disheveled appearing male, appears congruent with stated age. Psych: During conversation, Figueroa is alert, oriented, cooperative and mostly logical. Appears to be appropriately dressed but somewhat disheveled. Eye contact is good, with some slight fidgeting that he can stop when he becomes aware of it. No other abnormal motor movements. Gait is steady. Speech volume is appropriate during conversation, more pressured and hyperverbal than yesterday but less than admission Affect is controlled but not constricted. Thought process is goal oriented and somewhat reality based without delusions. Tangential at times. Suicidal thoughts remain present "always there" but without any plans to act on them. No homicidal thoughts. No auditory or visual hallucinations. Memory and cognition intact. Intelligence consistent with level of education (no high school diploma), and judgement and insight are not impaired this morning. Integumentary: Several lacerations on legs and one on forehead. All appear to be healing well, no signs of inflammation or infection. ENT: No abscess or signs of infection noted in the oral mucosae, but poor dentition overall. No acute abscess that needs to be treated. Last Vital Signs Documentation: Assessment and Plan: Figueroa is a 46 yo male with a long history of untreated bipolar disorder on [facility] day 7. He is showing some improvement in his manic symptoms and has been complaint with his Risperdal 1.5mg and Depakote, and notes no side effects on these medications. He remains non-committal to long-term med compliance. 1. Bipolar disorder: Persistent, "50%" improved with Risperdal and Depakote. Denies current side effects from either medication but remains non committed to long-term medication adherence. Increased Depakote yesterday, will continue with current meds today. Will need to continue to emphasize need to take medications, and will revisit thoughts about better role modeling for son. Could use medications to break this cycle. Will need to reschedule family meeting. Will need to create safety plan and med compliance plan for discharge. 2. Substance abuse: Has abused alcohol, cannabis, opioids and other recreational drugs in the past. Not ready to give up his constitution party lifestyle. Will need to continue to discuss abstinence from these substances to not interfere with medications and progress. He is more likely to abuse these substances during manic periods. 3. Frontal laceration: Sutures removed 11/21, continues to be clear of signs of infection or inflammation. Complete course of Keflex and Cipro, no f/u with plastic surgery needed per Dr. Palomares. 4. ? Dental abscess: No signs of abscess, but poor dentition overall. Will discuss [facility] dental services with him upon discharge. 5. Disposition: LOS 2-4 days. Still having manic/hypomanic thoughts and actions.
[2016-11-26] MEDS: RISPERIDONE 0.5 MG TAB PO SCH (21:29)
[2016-11-27 06:51] VITALS: BP_SYST 119; BP_SYST 138; BP_DIAS 69; BP_DIAS 83; PULSE 106; PULSE 88; TEMP 36.5
[2016-11-27] MEDS: NAPROXEN 250 MG TAB PO SCH ×2 (08:27→22:45)
[2016-11-27] MEDS: DIVALPROEX SODIUM 500 MG DELAY RELEASE TAB PO SCH ×2 (08:27→22:45)
--- NOTE | 2016-11-27 09:53 | Psychiatric Progress Notes ---
Progress Note Date of Service Nov 27, 2016. Interval History 46-year-old white male who lives in [place] with his girlfriend, has a history of bipolar disorder not otherwise specified, treatment noncompliance, alcohol, cannabis, and opiate abuse, who presented to the emergency room with police for erratic behavior and was admitted voluntarily after he endorsed suicidal thoughts with a plan to hang himself. He also has a forehead laceration he sustained 8 days ago after he slipped and fell in a [place] and hit his head, which became infected, and is being treated by Dr. Trixie Palomares. He does not currently have any outpatient psychiatric providers, does not take medications, and presents with mood lability, agitation, and suicidal thoughts. Chief Complaint "I shouldn't be this happy with all that I'm going through.". Subjective Patient was seen & assessed interval progress reviewed with Treatment Team. He reports that he just got up so is not sure how he feels today yet. He is quietly reading the paper, and is not hyperverbal as in past days. He reviews that his tooth broke off yesterday, and it was bleeding at one point, but the Naproxen is taking care of the pain. His MA is now active, which he is happy about, and will have transportation to see a dentist that takes his insurance. He continues to deny aud/vis hallucinations, and SI/HI. He denies any side effects to meds, saying he didn't even know he took a higher dose of depakote. Review of Systems Constitutional: No fever, No chills, No sweats, No weight loss, No weakness, No fatigue, No problem reported ENT: + dental problems Respiratory: No cough, No sputum, No wheezing, No shortness of breath, No dyspnea on exertion, No dyspnea at rest, No hemoptysis, No problem reported Cardiovascular: No chest pain, No orthopnea, No PND, No edema, No claudication , No palpitations, No problem reported Abdomen: No pain, No nausea, No vomiting, No diarrhea, No constipation, No GI bleeding, No problem reported Musculoskeletal: No joint pain, No muscle pain, No swelling, No calf pain, No problem reported Neurologic: No memory loss, No paralysis, No weakness, No numbness/tingling, No vertigo, No balance problems, No problem reported Psychiatric: No depression symptoms, No anhedonism, No anxiety, No insomnia, No substance abuse, No problem reported Integumentary: No rash, No itch, No new/changing skin lesions, No color change , No bleeding, No problem reported Sleep Information Total Hours of Sleep: 6.00 Meal Information Percent of Breakfast Consumed: 100 Percent of Lunch Consumed: 100 Percent of Dinner Consumed: 100 Mental Status Exam During interview pt is: alert and oriented, cooperative Appearance: appropriately dressed, disheveled, other (large healing laceration on his forehead, no signs of infection) Eye contact is: fair Motor behavior is: steady gait & station, no abnormal motor movements Speech: normal in rate, rhythm & volume Affect: blunted, other (expansive, but improved from admission) Mood is: other (Doesn't know because he just got up) Thought process: goal directed Thought content: reality based without delusions Suicidal thought are: denied Homicidal thoughts are: denied Hallucinations: denies auditory, denies visual Cognition: memory grossly intact, language grossly intact Intelligence estimated to be: consistent with level of education Insight: impaired Judgement: impaired Impression Thoughts and speech slowed today, but he did just get out of bed. Behavior has been appropriate. We increased Depakote to 500 mg. BID yesterday and will be due for a level on 12/02. GF had requested another family meeting. His MA has been approved which will make aftercare easier to plan for, and will need to be referred to a dentist for carious broken teeth. Plan (1) Bipolar disorder, unspecified Patient has history of bipolar disorder, but has been noncompliant with outpatient treatment and medications. Would recommend Depakote, but he is not sure if he is willing to accept mood stabilizing medication at this time. We will continue risperidone 1 mg daily at bedtime, and we'll check fasting labs tomorrow. He will need ongoing education about his diagnosis and the risks of continued noncompliance with treatment. Recommend outpatient psychiatric follow-up and therapy. Recommend family meeting with girlfriend and mother. Need to ensure he will not of access to guns after discharge. Every 15 minute checks and encourage participation in unit groups and programming. Work on discharge safety plan. 11/20 - Continue current meds. Will increase tomorrow if tolerating. 11/21 - Increase Risperdal to 1.5 mg HS - Add Depakote DR 250 mg. BID titrating as tolerated - Family meeting with mother and girlfriend held, and second meeting scheduled with girlfriend for Thursday. 11/22 - 11/23 - Continue current meds. 11/24 Family meeting today. Discharge planning difficult until MA in place. Patient agreeable to titrate Depakote but will wait to see how patient tolerates Risperdal increase. 11/25 - Increase Depakote to 500 mg. BID 11/26 - Attempt to reschedule meeting with girlfriend, as they continue to have a volatile relationship, and he lives with her. 11/27 - Continue current meds - Depakote level on 12/02 (2) Opiate misuse Patient was taking opiate pain meds from friends and the emergency room. We will not continue this here, due to ongoing substance abuse and as it was intended for short-term treatment of pain. We will offer Tylenol and ibuprofen as needed. (3) Cannabis abuse Patient has been educated about the risks of ongoing cannabis use, including exacerbation of his mood disorder and psychotic symptoms, and the recommendations for abstinence. (4) Alcohol abuse The patient's AUDIT score and history suggest problematic drinking (Zone III WHO ). Brief intervention was offered and patient was poorly receptive. He minimizes his substance abuse, and is not willing to make changes. Intervention was greater than 5 min in length. Brief interventions include: 1. Assess Readiness to Quit, 2. Advise: Help Patient to Reduce or Abstain from Alcohol, 3. Agree: Set Specific, Feasible Goals, 4. Assist: Anticipate barriers, Problem-Solving Solutions. Social work to 5. Arrange: Referrals to appropriate treatment. Summary of intervention: The patient is in precontemplation stage with regards to transtheoretical model of change. The patient is advised to decrease alcohol consumption due to depressant effects and risk of interactions with prescription medications. The patient will be provided with recovery materials to continue to education self on how to cope with their condition without drinking. (5) Laceration Complete course of Keflex and Cipro. Discussed case with Dr. Trixie Palomares, who saw him in the emergency room and again yesterday, and she reports he will need a dressing change (wound care nurse consulted) tomorrow, continue antibiotics awaiting sensitivity, and will need sutures removed in 2 days. He will not likely need further plastic surgery follow up. 11/20 Suture removal tomorrow 11/21 11/21 - Remove sutures today Discharge / Aftercare Planning Psychiatrist: Name: [facility]Int[facility] with Wendy Mendoza Date of Appointment: Dec 02, 2016 Time of Appointment: 2:00pm Therapist: Name: Scottie Charrosi-Nat Ferraromary COMPUTATIONAL LINGUIST Date of Appointment: Dec 01, 2016 Time of Appointment: 10:30am Appointment Notes: [address] [place] [address]-[facility] Protective Signal Installer: Name: SHELLEY Date of Appointment: Dec 10, 2016 Time of Appointment: 2:00pm Visit Code E&M Code: 67147 Inventory Assets Strengths: "I'm athletic, I can shoot. Risk Factors Assessment Male: Yes : Yes /single/: No Higher / Fall in social status: No Access to guns: No Health problems: Yes Mental Health Diagnoses: Yes Substance use disorders: Yes Previous attempt: Yes Family history of suicide: No Previous psychiatric stay: Yes Smoker: Yes Protective Factors Assessment Yazidism beliefs: Yes : No Responsible for young children: No Employed: Yes Stable relationships: Yes Supportive family: Yes Good rapport with provider: No Data Vital Signs Last 24 Hrs: Date Time Temp Pulse Resp B/P (MAP) Pulse Ox O2 Delivery O2 Flow Rate FiO2 11/27/16 06:51 36.5 88 16 119/69 106 138/83 Meds Administered Last 24 Hrs: Meds Administered (Past 24Hrs) Medications (Trade) Dose Ordered Sig/[place] Route Start Time Stop Time Status Last Admin Dose Admin Divalproex Sodium (Depakote Delay Rel Tab) 500 mg BID PO 11/25/16 22:00 12/25/16 21:59 11/27/16 08:27 500 MG Naproxen (Naprosyn Tab) 250 mg BID PO 11/25/16 22:00 12/25/16 21:59 11/27/16 08:27 250 MG Lab Results Last 24 Hrs: 11/18/16 19:20 Red Blood Count 4.99, Mean Corpuscular Volume 85.8, Mean Corpuscular Hemoglobin 30.3, Mean Corpuscular Hemoglobin Concent 35.3, Mean Platelet Volume 9.0, Neutrophils (%) (Auto) 62.1, Lymphocytes (%) (Auto) 26.9, Monocytes (%) (Auto) 8.0, Eosinophils (%) (Auto) 2.6, Basophils (%) (Auto) 0.2, Neutrophils # (Auto) 3.12, Lymphocytes # (Auto) 1.35, Monocytes # (Auto) 0.40, Eosinophils # (Auto) 0.13, Basophils # (Auto) 0.01 11/18/16 19:20 Test 11/18/16 18:15 11/18/16 19:20 11/20/16 07:16 Urine Color YELLOW Urine Appearance CLEAR (CLEAR) Urine pH 5.5 (4.5-7.5) Urine Specific [place] 1.023 (1.000-1.030) Urine Protein NEG (NEG) Urine Glucose (UA) NEG (NEG) Urine Ketones NEG (NEG) Urine Occult Blood NEG (NEG) Urine Nitrite NEG (NEG) Urine Bilirubin NEG (NEG) Urine Urobilinogen NEG (NEG) Urine Leukocyte Esterase NEG (NEG) Urine Synthetic Stimulants see note Urine Opiates Screen POS (NEG) Urine Codeine Confirmation (GC/MS) NEGATIVE NG/ML (CUTOFF=50) Urine Morphine Confirm (GC/MS) 170 NG/ML (CUTOFF=50) Urine Hydrocodone Confirm (GC/MS) NEGATIVE NG/ML (CUTOFF=50) Urine Norhydrocodone NEGATIVE NG/ML (CUTOFF=50) Urine Noroxycodone NEGATIVE NG/ML (CUTOFF=50) Urine Oxycodone Confirm (GC/MS) NEGATIVE NG/ML (CUTOFF=50) Urine Oxymorphone Confirm (GC/MS) NEGATIVE NG/ML (CUTOFF=50) Urine Methadone, Qualitative NEG (NEG) Urine Hydromorphone Confirm (GC/MS) NEGATIVE NG/ML (CUTOFF=50) Urine Barbiturates NEG (NEG) Urine Phencyclidine (PCP) Level NEG (NEG) Ur Amphetamine/Methamphetamine NEG (NEG) MDMA (Ecstasy) Screen NEG (NEG) Urine Benzodiazepines Screen NEG (NEG) Urine Cocaine Metabolite NEG (NEG) Cannabinoids Comment see note Urine Synthetic Cannabinoids NEGATIVE (Negative) Ur Synthetic Cannabinoids Confirm (()) Urine Marijuana (THC) NEG (NEG) White Blood Count 5.02 K/uL (4.8-10.8) Red Blood Count 4.99 M/uL (4.7-6.1) Hemoglobin 15.1 g/dL (14.0-18.0) Hematocrit 42.8 % (42-52) Mean Corpuscular Volume 85.8 fL (80-100) Mean Corpuscular Hemoglobin 30.3 pg (25-34) Mean Corpuscular Hemoglobin Concent 35.3 g/dl (32-36) Platelet Count 236 K/uL (130-400) Mean Platelet Volume 9.0 fL (7.4-10.4) Neutrophils (%) (Auto) 62.1 % Lymphocytes (%) (Auto) 26.9 % Monocytes (%) (Auto) 8.0 % Eosinophils (%) (Auto) 2.6 % Basophils (%) (Auto) 0.2 % Neutrophils # (Auto) 3.12 K/uL (1.4-6.5) Lymphocytes # (Auto) 1.35 K/uL (1.2-3.4) Monocytes # (Auto) 0.40 K/uL (0.11-0.59) Eosinophils # (Auto) 0.13 K/uL (0-0.5) Basophils # (Auto) 0.01 K/uL (0-0.2) RDW Standard Deviation 40.3 fL (36.4-46.3) RDW Coefficient of Variation 12.9 % (11.5-14.5) Immature Granulocyte % (Auto) 0.2 % Immature Granulocyte # (Auto) 0.01 K/uL (0.00-0.02) Anion Gap 5.0 mmol/L (3-11) Est Creatinine Clear Calc Drug Dose 97.2 ml/min Estimated GFR () 103.4 Estimated GFR (Non- 89.2 BUN/Creatinine Ratio 14.7 (10-20) Calcium Level 9.3 mg/dl (8.5-10.1) Total Bilirubin 1.1 mg/dl (0.2-1) Direct Bilirubin 0.2 mg/dl (0-0.2) Aspartate Amino Transf (AST/SGOT) 23 U/L (15-37) Alanine Aminotransferase (ALT/SGPT) 30 U/L (12-78) Alkaline Phosphatase 67 U/L (45-117) Total Protein 7.6 gm/dl (6.4-8.2) Albumin 3.5 gm/dl (3.4-5.0) Thyroid Stimulating Hormone (TSH) 1.160 uIu/ml (0.300-4.500) Salicylates Level < 1.7 mg/dl (2.8-20) Acetaminophen Level < 2 ug/ml (10-30) Ethyl Alcohol mg/dL < 3.0 mg/dl (0-3) Fasting Glucose 106 mg/dl (70-99) Triglycerides Level 139 mg/dl (0-150) Cholesterol Level 151 mg/dl (0-200) HDL Cholesterol 35 mg/dl LDL Cholesterol, Calculated 88 mg/dl VLDL Cholesterol, Calculated 28 mg/dl Cholesterol/HDL Ratio 4.3 Problem Qualifiers (1) Bipolar disorder, unspecified: Active/Remission status: currently active Current bipolar episode type: mixed Current episode severity: severe Psychotic features: without psychotic features Qualified Codes: F31.63 - Bipolar disorder, current episode mixed, severe, without psychotic features
--- NOTE | 2016-11-27 09:57 | Medical Student: BHU Only ---
Psychiatric Progress Note Date of Service: Nov 27, 2016. CC: "This is starting to feel natural." HPI: Figueroa Dobbs is a 46 yo male with a long history of untreated bipolar disorder who in the past has been resistant to medication or treatment. His manic symptoms have improved since his admission 9 days ago, but he remains hyperverbal with somewhat elated moods. He states that his meds he has been taking for a week now feel natural, and that he not only is not experiencing side effects, he feels like he feels more natural too. He is able to think more clearly, is less jittery, and is able to control his actions more frequently. He said taking meds detention has always been a problem, but because this "feels natural", he wants to keep taking the meds if he can remember to. We discussed use of a pill box to know when to take each medication, setting phone reminders , placing his medications by his bathroom sink, so he sees them each morning and night, and relying on his girlfriend to help remind him to take his medication. Other than the medication box and placing it by his sink, these ideas were all ones he thought of himself. Figueroa did not talk to his girlfriend yesterday. He said he is giving her space after their argument the day prior but will talk to her soon. Figueroa remains pleasant with staff and peers, but needs to be redirected if he becomes hyperverbal or inappropriate in conversation. Regarding aftercare, Figueroa's MA was approved yesterday, and counseling, psychiatry, a PCP, and a dentist are all being set up, which he is happy about. He realizes it is important to keep these appointments and his mom can provide transportation. He indicated yesterday he would like to move to [place], but says this is a long-term plan, and will not be moving anytime soon. He feels "over" this area and wants to be able to see the world, and will do that in [place] when he is done working. He does not know whether he will have a job when he is discharged, but states that "with my kind of work, they always need people, so they should take me back." ROS: Less racing thoughts but still present. "Forehead drooping" below scar. L upper jaw pain which bled yesterday, that he attributes to a previous abscess that has popped. Ten point review of systems otherwise negative. Objective: General: Somewhat disheveled appearing male, appears congruent with stated age. ENT: No abscess or signs of infection noted in the oral mucosae, but poor dentition overall. No acute abscess that needs to be treated. Not bleeding this morning. Psych: During conversation, Figueroa is alert, oriented, cooperative and mostly logical. He is engaged in conversation and polite. Appears to be appropriately dressed but somewhat disheveled. Eye contact is good, with some slight fidgeting that he can stop when he becomes aware of it. No other abnormal motor movements. Speech volume is appropriate during conversation,not pressured. Affect is controlled but not constricted. Thought process is goal oriented ( desires to continue taking meds) and somewhat reality based without delusions. Tangential at times but comes back to topic of conversation. Denies suicidal or homicidal thoughts. No auditory or visual hallucinations. Memory and cognition intact. Intelligence consistent with level of education (no high school diploma) , and judgement and insight are not impaired. Integumentary: Several lacerations on legs and one on forehead. All appear to be healing well, no signs of inflammation or infection. Last Vital Signs Documentation Date Time Temp Pulse Resp B/P (MAP) Pulse Ox O2 Delivery O2 Flow Rate FiO2 11/27/16 06:51 36.5 88 16 119/69 106 138/83 11/18/16 22:10 99 Room Air Test 11/18/16 18:15 11/18/16 19:20 11/20/16 07:16 Urine Color YELLOW Urine Appearance CLEAR Urine pH 5.5 Urine Specific [place] 1.023 Urine Protein NEG Urine Glucose (UA) NEG Urine Ketones NEG Urine Occult Blood NEG Urine Nitrite NEG Urine Bilirubin NEG Urine Urobilinogen NEG Urine Leukocyte Esterase NEG Urine Synthetic Stimulants see note Urine Opiates Screen POS Urine Codeine Confirmation (GC/MS) NEGATIVE Urine Morphine Confirm (GC/MS) 170 Urine Hydrocodone Confirm (GC/MS) NEGATIVE Urine Norhydrocodone NEGATIVE Urine Noroxycodone NEGATIVE Urine Oxycodone Confirm (GC/MS) NEGATIVE Urine Oxymorphone Confirm (GC/MS) NEGATIVE Urine Methadone, Qualitative NEG Urine Hydromorphone Confirm (GC/MS) NEGATIVE Urine Barbiturates NEG Urine Phencyclidine (PCP) Level NEG Ur Amphetamine/Methamphetamine NEG MDMA (Ecstasy) Screen NEG Urine Benzodiazepines Screen NEG Urine Cocaine Metabolite NEG Cannabinoids Comment see note Urine Synthetic Cannabinoids NEGATIVE Ur Synthetic Cannabinoids Confirm Urine Marijuana (THC) NEG White Blood Count 5.02 Red Blood Count 4.99 Hemoglobin 15.1 Hematocrit 42.8 Mean Corpuscular Volume 85.8 Mean Corpuscular Hemoglobin 30.3 Mean Corpuscular Hemoglobin Concent 35.3 Platelet Count 236 Mean Platelet Volume 9.0 Neutrophils (%) (Auto) 62.1 Lymphocytes (%) (Auto) 26.9 Monocytes (%) (Auto) 8.0 Eosinophils (%) (Auto) 2.6 Basophils (%) (Auto) 0.2 Neutrophils # (Auto) 3.12 Lymphocytes # (Auto) 1.35 Monocytes # (Auto) 0.40 Eosinophils # (Auto) 0.13 Basophils # (Auto) 0.01 RDW Standard Deviation 40.3 RDW Coefficient of Variation 12.9 Immature Granulocyte % (Auto) 0.2 Immature Granulocyte # (Auto) 0.01 Sodium Level 139 Potassium Level 3.8 Chloride Level 106 Carbon Dioxide Level 28 Anion Gap 5.0 Blood Urea Nitrogen 15 Creatinine 1.00 Est Creatinine Clear Calc Drug Dose 97.2 Estimated GFR () 103.4 Estimated GFR (Non- 89.2 BUN/Creatinine Ratio 14.7 Random Glucose 94 Calcium Level 9.3 Total Bilirubin 1.1 Direct Bilirubin 0.2 Aspartate Amino Transferase (AST) 23 Alanine Aminotransferase (ALT) 30 Alkaline Phosphatase 67 Total Protein 7.6 Albumin 3.5 Thyroid Stimulating Hormone (TSH) 1.160 Salicylates Level < 1.7 Acetaminophen Level < 2 Ethyl Alcohol mg/dL < 3.0 Fasting Glucose 106 Triglycerides Level 139 Cholesterol Level 151 HDL Cholesterol 35 LDL Cholesterol, Calculated 88 VLDL Cholesterol, Calculated 28 Cholesterol/HDL Ratio 4.3 Assessment and Plan: Figueroa is a 46 yo male with a long history of untreated bipolar disorder on [facility] day 7. He is showing some improvement in his manic symptoms and has been complaint with his Risperdal 1.5mg and Depakote, and notes no side effects on these medications. He remains non-committal to long-term med compliance. 1. Bipolar disorder: Persistent, "60%" improved with Risperdal and Depakote. Feels like medications are natural. Denies current side effects from either medication and wants to keep taking meds but feels like he will forget to take them. Had ideas about how he could remind himself. Increased Depakote two days ago, will continue with current meds today. Will need to continue to emphasize need to take medications. Will need to schedule family meeting. Will need to review safety plan and med compliance plan for discharge. 2. Substance abuse: Has abused alcohol, cannabis, opioids and other recreational drugs in the past. 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 Will need to continue to discuss abstinence from these substances to not interfere with medications and progress. He is more likely to abuse these substances during manic periods. 3. Frontal laceration: Sutures removed 11/21, continues to be clear of signs of infection or inflammation. Complete course of Keflex and Cipro, no f/u with plastic surgery needed per Dr. Palomares. 4. ? Dental abscess: No signs of abscess, but poor dentition overall. Will discuss CV dental services or dentist that accepts MA. 5. Disposition: LOS 1-3 days. Aftercare in process now that MA is active. will need family meeting with girlfriend and mom to ensure med compliance and aftercare followthrough.
[2016-11-27] MEDS: RISPERIDONE 0.5 MG TAB PO SCH (22:45)
[2016-11-28 06:48] VITALS: BP_SYST 118; BP_SYST 126; BP_DIAS 71; BP_DIAS 85; PULSE 74; PULSE 90; TEMP 36.3
[2016-11-28] MEDS: NAPROXEN 250 MG TAB PO SCH ×2 (07:29→22:09)
[2016-11-28] MEDS: DIVALPROEX SODIUM 500 MG DELAY RELEASE TAB PO SCH ×2 (07:30→22:09)
--- NOTE | 2016-11-28 10:53 | Psychiatric Progress Notes ---
Progress Note Date of Service Nov 28, 2016. Interval History 46-year-old white male who lives in [place] with his girlfriend, has a history of bipolar disorder not otherwise specified, treatment noncompliance, alcohol, cannabis, and opiate abuse, who presented to the emergency room with police for erratic behavior and was admitted voluntarily after he endorsed suicidal thoughts with a plan to hang himself. He also has a forehead laceration he sustained 8 days ago after he slipped and fell in a [place] and hit his head, which became infected, and is being treated by Dr. Trixie Palomares. He does not currently have any outpatient psychiatric providers, does not take medications, and presents with mood lability, agitation, and suicidal thoughts. Chief Complaint "When can I get out of here? There's nothing to do.". Subjective Patient was seen & assessed interval progress reviewed with Treatment Team. The patient is frustrated today about being in the hospital. He is anxious to go home to be with his girlfriend. A meeting is scheduled with her at noon today, but it will be by phone and she can't find transportation to the hospital. He reports that his thoughts are slow and he feels tired today. He denies high energy. He asks why his estimated LOS was 3-5 and explain our reasoning. He is then willing to make the good decision and stay until Thursday. He is calm in making this decision, and then laughs and smiles. He denies SI/ hI, denies aus/vis hallucinations. Review of Systems Constitutional: + fatigue ENT: No hearing loss, No unusual epistaxis, No nasal symptoms, No sore throat, No tinnitus, No dental problems, No trouble swallowing, No problem reported Respiratory: No cough, No sputum, No wheezing, No shortness of breath, No dyspnea on exertion, No dyspnea at rest, No hemoptysis, No problem reported Cardiovascular: No chest pain, No orthopnea, No PND, No edema, No claudication , No palpitations, No problem reported Abdomen: No pain, No nausea, No vomiting, No diarrhea, No constipation, No GI bleeding, No problem reported Musculoskeletal: No joint pain, No muscle pain, No swelling, No calf pain, No problem reported Neurologic: No memory loss, No paralysis, No weakness, No numbness/tingling, No vertigo, No balance problems, No problem reported Psychiatric: + problem reported (bored and restless) Integumentary: + problem reported (Healing lac forehead) Sleep Information Total Hours of Sleep: 6.00 Meal Information Percent of Breakfast Consumed: 100 Percent of Lunch Consumed: 100 Percent of Dinner Consumed: 75 Mental Status Exam During interview pt is: alert and oriented, cooperative Appearance: appropriately dressed, disheveled, other (large healing laceration on his forehead, no signs of infection) Eye contact is: fair Motor behavior is: steady gait & station, no abnormal motor movements Speech: normal in rate, rhythm & volume Affect: euthymic, other (expansive, but improved from admission) Mood is: other (Doesn't know because he just got up) Thought process: goal directed Thought content: reality based without delusions Suicidal thought are: denied Homicidal thoughts are: denied Hallucinations: denies auditory, denies visual Cognition: memory grossly intact, language grossly intact Intelligence estimated to be: consistent with level of education Insight: impaired Judgement: impaired Impression Becoming restless after 10 days in the hospital. I have explained to him that more time on the meds under controlled circumstances increases his chance of success after discharge, and he agrees to stay until Thursday. Will draw depakote level on Thursday and make any adjustments necessary, but plan for discharge then. That will allow family time to make arrangements to pick him up Plan (1) Bipolar disorder, unspecified Patient has history of bipolar disorder, but has been noncompliant with outpatient treatment and medications. Would recommend Depakote, but he is not sure if he is willing to accept mood stabilizing medication at this time. We will continue risperidone 1 mg daily at bedtime, and we'll check fasting labs tomorrow. He will need ongoing education about his diagnosis and the risks of continued noncompliance with treatment. Recommend outpatient psychiatric follow-up and therapy. Recommend family meeting with girlfriend and mother. Need to ensure he will not of access to guns after discharge. Every 15 minute checks and encourage participation in unit groups and programming. Work on discharge safety plan. 11/20 - Continue current meds. Will increase tomorrow if tolerating. 11/21 - Increase Risperdal to 1.5 mg HS - Add Depakote DR 250 mg. BID titrating as tolerated - Family meeting with mother and girlfriend held, and second meeting scheduled with girlfriend for Thursday. 11/22 - 11/23 - Continue current meds. 11/24 Family meeting today. Discharge planning difficult until MA in place. Patient agreeable to titrate Depakote but will wait to see how patient tolerates Risperdal increase. 11/25 - Increase Depakote to 500 mg. BID 11/26 - Attempt to reschedule meeting with girlfriend, as they continue to have a volatile relationship, and he lives with her. 11/27 - Continue current meds - Depakote level on 12/02 11/28 - Will draw depakote level on 12/01 prior to discharge (2) Opiate misuse Patient was taking opiate pain meds from friends and the emergency room. We will not continue this here, due to ongoing substance abuse and as it was intended for short-term treatment of pain. We will offer Tylenol and ibuprofen as needed. (3) Cannabis abuse Patient has been educated about the risks of ongoing cannabis use, including exacerbation of his mood disorder and psychotic symptoms, and the recommendations for abstinence. (4) Alcohol abuse The patient's AUDIT score and history suggest problematic drinking (Zone III WHO ). Brief intervention was offered and patient was poorly receptive. He minimizes his substance abuse, and is not willing to make changes. Intervention was greater than 5 min in length. Brief interventions include: 1. Assess Readiness to Quit, 2. Advise: Help Patient to Reduce or Abstain from Alcohol, 3. Agree: Set Specific, Feasible Goals, 4. Assist: Anticipate barriers, Problem-Solving Solutions. Social work to 5. Arrange: Referrals to appropriate treatment. Summary of intervention: The patient is in precontemplation stage with regards to transtheoretical model of change. The patient is advised to decrease alcohol consumption due to depressant effects and risk of interactions with prescription medications. The patient will be provided with recovery materials to continue to education self on how to cope with their condition without drinking. (5) Laceration Complete course of Keflex and Cipro. Discussed case with Dr. Trixie Palomares, who saw him in the emergency room and again yesterday, and she reports he will need a dressing change (wound care nurse consulted) tomorrow, continue antibiotics awaiting sensitivity, and will need sutures removed in 2 days. He will not likely need further plastic surgery follow up. 11/20 Suture removal tomorrow 11/21 11/21 - Remove sutures today Discharge / Aftercare Planning Psychiatrist: Name: [facility]-Intake with Wendy Mendoza Date of Appointment: Dec 02, 2016 Time of Appointment: 2:00pm Therapist: Name: Scottie Wiseman-Nat Ronanmary PATHOLOGY LABORATORY TECHNOLOGIST Date of Appointment: Dec 01, 2016 Time of Appointment: 10:30am Appointment Notes: [address] [facility] [employer] Picking Table Worker: Name: BSAshok Date of Appointment: Dec 10, 2016 Time of Appointment: 2:00pm Specialist: Name: Dr Mccabe-Dentist Date of Appointment: Dec 05, 2016 Time of Appointment: 9:45am Appointment Notes: [address] [facility] Visit Code E&M Code: 29361 Inventory Assets Strengths: "I'm athletic, I can shoot. Risk Factors Assessment Male: Yes : Yes /single/: No Higher / Fall in social status: No Access to guns: No Health problems: Yes Mental Health Diagnoses: Yes Substance use disorders: Yes Previous attempt: Yes Family history of suicide: No Previous psychiatric stay: Yes Smoker: Yes Protective Factors Assessment Confucianism beliefs: Yes : No Responsible for young children: No Employed: Yes Stable relationships: Yes Supportive family: Yes Good rapport with provider: No Data Vital Signs Last 24 Hrs: Date Time Temp Pulse Resp B/P (MAP) Pulse Ox O2 Delivery O2 Flow Rate FiO2 11/28/16 06:48 36.3 74 16 118/71 90 126/85 Meds Administered Last 24 Hrs: Current Inpatient Medications Medications (Trade) Dose Ordered Sig/[place] Route Start Time Stop Time Status Last Admin Dose Admin Acetaminophen (Tylenol Tab) 650 mg Q4H PRN PO 11/18/16 22:30 12/18/16 22:29 Al Hydroxide/Mg Hydroxide (Maalox Susp) 30 ml Q4H PRN PO 11/18/16 22:30 12/18/16 22:29 Bismuth Subsalicylate (Kaopectate Liqd) 15 ml DAILY PRN PO 11/18/16 22:30 12/18/16 22:29 Magnesium Hydroxide (Milk Of Magnesia Susp) 30 ml DAILY PRN PO 11/18/16 22:30 12/18/16 22:29 Sodium Chloride ([place] Nasal [place]) PRN PRN NA 11/18/16 22:30 12/18/16 22:29 Hydroxyzine HCl (Vistaril Tab) 50 mg HSZ PRN PO 11/18/16 22:30 12/18/16 22:29 11/24/16 23:38 50 MG Hydroxyzine HCl (Vistaril Tab) 25 mg Q4H PRN PO 11/18/16 22:30 12/18/16 22:29 Ibuprofen (Advil Tab) 400 mg Q8H PRN PO 11/18/16 22:45 12/18/16 22:44 11/25/16 13:40 400 MG Risperidone (Risperdal Tab) 0.5 mg Q6H PRN PO 11/18/16 22:45 12/18/16 22:44 11/24/16 23:38 0.5 MG Risperidone (Risperdal Tab) 1.5 mg HS PO 11/24/16 22:00 12/19/16 21:59 11/27/16 22:45 1.5 MG Divalproex Sodium (Depakote Delay Rel Tab) 500 mg BID PO 11/25/16 22:00 12/25/16 21:59 11/28/16 07:30 500 MG Naproxen (Naprosyn Tab) 250 mg BID PO 11/25/16 22:00 12/25/16 21:59 11/28/16 07:29 250 MG Lab Results Last 24 Hrs: 11/18/16 19:20 Red Blood Count 4.99, Mean Corpuscular Volume 85.8, Mean Corpuscular Hemoglobin 30.3, Mean Corpuscular Hemoglobin Concent 35.3, Mean Platelet Volume 9.0, Neutrophils (%) (Auto) 62.1, Lymphocytes (%) (Auto) 26.9, Monocytes (%) (Auto) 8.0, Eosinophils (%) (Auto) 2.6, Basophils (%) (Auto) 0.2, Neutrophils # (Auto) 3.12, Lymphocytes # (Auto) 1.35, Monocytes # (Auto) 0.40, Eosinophils # (Auto) 0.13, Basophils # (Auto) 0.01 11/18/16 19:20 Test 11/18/16 18:15 11/18/16 19:20 11/20/16 07:16 Urine Color YELLOW Urine Appearance CLEAR (CLEAR) Urine pH 5.5 (4.5-7.5) Urine Specific [place] 1.023 (1.000-1.030) Urine Protein NEG (NEG) Urine Glucose (UA) NEG (NEG) Urine Ketones NEG (NEG) Urine Occult Blood NEG (NEG) Urine Nitrite NEG (NEG) Urine Bilirubin NEG (NEG) Urine Urobilinogen NEG (NEG) Urine Leukocyte Esterase NEG (NEG) Urine Synthetic Stimulants see note Urine Opiates Screen POS (NEG) Urine Codeine Confirmation (GC/MS) NEGATIVE NG/ML (CUTOFF=50) Urine Morphine Confirm (GC/MS) 170 NG/ML (CUTOFF=50) Urine Hydrocodone Confirm (GC/MS) NEGATIVE NG/ML (CUTOFF=50) Urine Norhydrocodone NEGATIVE NG/ML (CUTOFF=50) Urine Noroxycodone NEGATIVE NG/ML (CUTOFF=50) Urine Oxycodone Confirm (GC/MS) NEGATIVE NG/ML (CUTOFF=50) Urine Oxymorphone Confirm (GC/MS) NEGATIVE NG/ML (CUTOFF=50) Urine Methadone, Qualitative NEG (NEG) Urine Hydromorphone Confirm (GC/MS) NEGATIVE NG/ML (CUTOFF=50) Urine Barbiturates NEG (NEG) Urine Phencyclidine (PCP) Level NEG (NEG) Ur Amphetamine/Methamphetamine NEG (NEG) MDMA (Ecstasy) Screen NEG (NEG) Urine Benzodiazepines Screen NEG (NEG) Urine Cocaine Metabolite NEG (NEG) Cannabinoids Comment see note Urine Synthetic Cannabinoids NEGATIVE (Negative) Ur Synthetic Cannabinoids Confirm (()) Urine Marijuana (THC) NEG (NEG) White Blood Count 5.02 K/uL (4.8-10.8) Red Blood Count 4.99 M/uL (4.7-6.1) Hemoglobin 15.1 g/dL (14.0-18.0) Hematocrit 42.8 % (42-52) Mean Corpuscular Volume 85.8 fL (80-100) Mean Corpuscular Hemoglobin 30.3 pg (25-34) Mean Corpuscular Hemoglobin Concent 35.3 g/dl (32-36) Platelet Count 236 K/uL (130-400) Mean Platelet Volume 9.0 fL (7.4-10.4) Neutrophils (%) (Auto) 62.1 % Lymphocytes (%) (Auto) 26.9 % Monocytes (%) (Auto) 8.0 % Eosinophils (%) (Auto) 2.6 % Basophils (%) (Auto) 0.2 % Neutrophils # (Auto) 3.12 K/uL (1.4-6.5) Lymphocytes # (Auto) 1.35 K/uL (1.2-3.4) Monocytes # (Auto) 0.40 K/uL (0.11-0.59) Eosinophils # (Auto) 0.13 K/uL (0-0.5) Basophils # (Auto) 0.01 K/uL (0-0.2) RDW Standard Deviation 40.3 fL (36.4-46.3) RDW Coefficient of Variation 12.9 % (11.5-14.5) Immature Granulocyte % (Auto) 0.2 % Immature Granulocyte # (Auto) 0.01 K/uL (0.00-0.02) Anion Gap 5.0 mmol/L (3-11) Est Creatinine Clear Calc Drug Dose 97.2 ml/min Estimated GFR () 103.4 Estimated GFR (Non- 89.2 BUN/Creatinine Ratio 14.7 (10-20) Calcium Level 9.3 mg/dl (8.5-10.1) Total Bilirubin 1.1 mg/dl (0.2-1) Direct Bilirubin 0.2 mg/dl (0-0.2) Aspartate Amino Transf (AST/SGOT) 23 U/L (15-37) Alanine Aminotransferase (ALT/SGPT) 30 U/L (12-78) Alkaline Phosphatase 67 U/L (45-117) Total Protein 7.6 gm/dl (6.4-8.2) Albumin 3.5 gm/dl (3.4-5.0) Thyroid Stimulating Hormone (TSH) 1.160 uIu/ml (0.300-4.500) Salicylates Level < 1.7 mg/dl (2.8-20) Acetaminophen Level < 2 ug/ml (10-30) Ethyl Alcohol mg/dL < 3.0 mg/dl (0-3) Fasting Glucose 106 mg/dl (70-99) Triglycerides Level 139 mg/dl (0-150) Cholesterol Level 151 mg/dl (0-200) HDL Cholesterol 35 mg/dl LDL Cholesterol, Calculated 88 mg/dl VLDL Cholesterol, Calculated 28 mg/dl Cholesterol/HDL Ratio 4.3 Problem Qualifiers (1) Bipolar disorder, unspecified: Active/Remission status: currently active Current bipolar episode type: mixed Current episode severity: severe Psychotic features: without psychotic features Qualified Codes: F31.63 - Bipolar disorder, current episode mixed, severe, without psychotic features
--- NOTE | 2016-11-28 14:53 | Medical Student: BHU Only ---
Psychiatric Progress Note Date of Service: Nov 28, 2016. CC: "This is starting to feel natural." HPI: Figueroa Dobsb is a 46 yo male, 301, with a long history of untreated bipolar disorder who in the past has been resistant to medication or treatment. His manic symptoms have improved since his admission 10 days ago, but he remains hyperverbal with somewhat elated moods. He continues to deny medication side effects and plans to stick with his treatment "as long as he can get there". After he made that comment, I reminded him of our discussion yesterday regarding ways he can remember to take his medications and get to his appointments. During community meeting this morning Figueroa talked about a friend who shot himself when he was in his 20s, and how if he had only reached out, they could have talked about the tough times they were going through. He encouraged others to reach out whenever they need it. Figueroa has a meeting with his girlfriend planned for this afternoon. He knows he needs to talk to her about how they can work together to get him better and to keep taking his medications. Regarding aftercare, Figueroa's MA was approved two days ago, and his appointments for counseling, psychiatry, a PCP, are all set up, and he was told about [facility]. He realizes it is important to keep these appointments and his mom can provide transportation. He still does not know whether he will have a job when he is discharged, but stated yesterday that "with my kind of work, they always need people, so they should take me back." ROS: Denies racing thoughts. Unless notes above, ten point review of systems otherwise negative. Objective: General: Somewhat disheveled appearing male, appears congruent with stated age. ENT: No abscess or signs of infection noted in the oral mucosae, but poor dentition overall. No acute abscess that needs to be treated. Psych: During conversation, Figueroa is alert, oriented, cooperative and mostly logical. He is engaged in conversation and polite. Appears to be appropriately dressed but somewhat disheveled. Eye contact is good, with some slight fidgeting that he can stop when he becomes aware of it. No other abnormal motor movements. Speech volume is appropriate during conversation,not pressured. Affect is controlled but not constricted. Thought process is goal oriented ( desires to continue taking meds) and somewhat reality based without delusions. Tangential at times but comes back to topic of conversation. Denies suicidal or homicidal thoughts. No auditory or visual hallucinations. Memory and cognition intact. Intelligence consistent with level of education (no high school diploma) , and judgement and insight are not impaired. Integumentary: Several lacerations on legs and one on forehead. All appear to be healing well, no signs of inflammation or infection. Last Vital Signs Documentation Date Time Temp Pulse Resp B/P (MAP) Pulse Ox O2 Delivery O2 Flow Rate FiO2 11/28/16 06:48 36.3 74 16 118/71 90 126/85 11/18/16 22:10 99 Room Air Recent labs Test 11/18/16 18:15 11/18/16 19:20 11/20/16 07:16 Urine Color YELLOW Urine Appearance CLEAR Urine pH 5.5 Urine Specific [place] 1.023 Urine Protein NEG Urine Glucose (UA) NEG Urine Ketones NEG Urine Occult Blood NEG Urine Nitrite NEG Urine Bilirubin NEG Urine Urobilinogen NEG Urine Leukocyte Esterase NEG Urine Synthetic Stimulants see note Urine Opiates Screen POS Urine Codeine Confirmation (GC/MS) NEGATIVE Urine Morphine Confirm (GC/MS) 170 Urine Hydrocodone Confirm (GC/MS) NEGATIVE Urine Norhydrocodone NEGATIVE Urine Noroxycodone NEGATIVE Urine Oxycodone Confirm (GC/MS) NEGATIVE Urine Oxymorphone Confirm (GC/MS) NEGATIVE Urine Methadone, Qualitative NEG Urine Hydromorphone Confirm (GC/MS) NEGATIVE Urine Barbiturates NEG Urine Phencyclidine (PCP) Level NEG Ur Amphetamine/Methamphetamine NEG MDMA (Ecstasy) Screen NEG Urine Benzodiazepines Screen NEG Urine Cocaine Metabolite NEG Cannabinoids Comment see note Urine Synthetic Cannabinoids NEGATIVE Ur Synthetic Cannabinoids Confirm Urine Marijuana (THC) NEG White Blood Count 5.02 Red Blood Count 4.99 Hemoglobin 15.1 Hematocrit 42.8 Mean Corpuscular Volume 85.8 Mean Corpuscular Hemoglobin 30.3 Mean Corpuscular Hemoglobin Concent 35.3 Platelet Count 236 Mean Platelet Volume 9.0 Neutrophils (%) (Auto) 62.1 Lymphocytes (%) (Auto) 26.9 Monocytes (%) (Auto) 8.0 Eosinophils (%) (Auto) 2.6 Basophils (%) (Auto) 0.2 Neutrophils # (Auto) 3.12 Lymphocytes # (Auto) 1.35 Monocytes # (Auto) 0.40 Eosinophils # (Auto) 0.13 Basophils # (Auto) 0.01 RDW Standard Deviation 40.3 RDW Coefficient of Variation 12.9 Immature Granulocyte % (Auto) 0.2 Immature Granulocyte # (Auto) 0.01 Sodium Level 139 Potassium Level 3.8 Chloride Level 106 Carbon Dioxide Level 28 Anion Gap 5.0 Blood Urea Nitrogen 15 Creatinine 1.00 Est Creatinine Clear Calc Drug Dose 97.2 Estimated GFR () 103.4 Estimated GFR (Non- 89.2 BUN/Creatinine Ratio 14.7 Random Glucose 94 Calcium Level 9.3 Total Bilirubin 1.1 Direct Bilirubin 0.2 Aspartate Amino Transferase (AST) 23 Alanine Aminotransferase (ALT) 30 Alkaline Phosphatase 67 Total Protein 7.6 Albumin 3.5 Thyroid Stimulating Hormone (TSH) 1.160 Salicylates Level < 1.7 Acetaminophen Level < 2 Ethyl Alcohol mg/dL < 3.0 Fasting Glucose 106 Triglycerides Level 139 Cholesterol Level 151 HDL Cholesterol 35 LDL Cholesterol, Calculated 88 VLDL Cholesterol, Calculated 28 Cholesterol/HDL Ratio 4.3 Assessment and Plan: Figueroa is a 46 yo male with a long history of untreated bipolar disorder on [facility] day 8. He is showing improvement in his manic symptoms but still rates his mood as a 10, and has been complaint with his Risperdal 1.5mg and Depakote, and notes no side effects on these medications. He endorses desire to continue taking meds fdc. 1. Bipolar disorder: Persistent, improved with Risperdal and Depakote. Better each day. Feels like medications are natural. Denies current side effects from either medication and wants to keep taking meds but feels like he will forget to take them. Had ideas about how he could remind himself. Increased Depakote three days ago, will continue with current meds today. Will need to continue to emphasize need to take medications. Family meeting with girlfriend today. Will need to review safety plan and med compliance plan for discharge. 2. Substance abuse: Has abused alcohol, cannabis, opioids and other recreational drugs in the past. 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 Will need to continue to discuss abstinence from these substances to not interfere with medications and progress. He is more likely to abuse these substances during manic periods. 3. Frontal laceration: Sutures removed 11/21, continues to be clear of signs of infection or inflammation. Complete course of Keflex and Cipro, no f/u with plastic surgery needed per Dr. Palomares. 4. ? Dental abscess: No signs of abscess, but poor dentition overall. Will discuss [facility] or dentist that accepts MA. 5. Disposition: LOS 1-3 days. Aftercare in process now that MA is active. Family meeting with girlfriend today. Hopefuly for discharge in coming days.
[2016-11-28] MEDS: RISPERIDONE 0.5 MG TAB PO SCH (22:09)
[2016-11-29 06:50] VITALS: BP_SYST 105; BP_SYST 116; BP_DIAS 65; BP_DIAS 76; PULSE 71; PULSE 90; TEMP 36.5
[2016-11-29] MEDS: DIVALPROEX SODIUM 500 MG DELAY RELEASE TAB PO SCH ×2 (09:04→23:03)
[2016-11-29] MEDS: NAPROXEN 250 MG TAB PO SCH ×2 (09:04→23:01)
--- NOTE | 2016-11-29 13:47 | Psychiatric Progress Notes ---
Progress Note Date of Service Nov 29, 2016. Interval History 46-year-old white male who lives in [place] with his girlfriend, has a history of bipolar disorder not otherwise specified, treatment noncompliance, alcohol, cannabis, and opiate abuse, who presented to the emergency room with police for erratic behavior and was admitted voluntarily after he endorsed suicidal thoughts with a plan to hang himself. He also has a forehead laceration he sustained 8 days ago after he slipped and fell in a [place] and hit his head, which became infected, and is being treated by Dr. Trixie Palomares. He does not currently have any outpatient psychiatric providers, does not take medications, and presents with mood lability, agitation, and suicidal thoughts. Chief Complaint "I'm ready to get going". Subjective Patient was seen & assessed interval progress reviewed with Nursing. Patient is tolerating medications well. He expresses need to be on medications to remain stable. Mood is stabilizing. 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 Denies any thoughts to harm himself or others. Denies auditory or visual hallucinations or paranoia. Review of Systems Psych: denies symptoms other than stated above Constitutional: denied Cardiovascular: denied GI: denied Neurologic: denied Remainder of 10 body systems also reviewed and denied other than noted above. Sleep Information Total Hours of Sleep: 5.00 Meal Information Percent of Breakfast Consumed: 100 Percent of Lunch Consumed: 100 Percent of Dinner Consumed: 100 Mental Status Exam During interview pt is: alert and oriented, cooperative Appearance: appropriately dressed, disheveled, other (large healing laceration on his forehead, no signs of infection) Eye contact is: fair Motor behavior is: steady gait & station, no abnormal motor movements Speech: normal in rate, rhythm & volume Affect: euthymic, other (expansive, but improved from admission) Mood is: other (Doesn't know because he just got up) Thought process: goal directed Thought content: reality based without delusions Suicidal thought are: denied Homicidal thoughts are: denied Hallucinations: denies auditory, denies visual Cognition: memory grossly intact, language grossly intact Intelligence estimated to be: consistent with level of education Insight: impaired Judgement: impaired Impression Becoming restless after 10 days in the hospital. I have explained to him that more time on the meds under controlled circumstances increases his chance of success after discharge, and he agrees to stay until Thursday. Will draw depakote level on Thursday and make any adjustments necessary, but plan for discharge then. That will allow family time to make arrangements to pick him up Plan (1) Bipolar disorder, unspecified Patient has history of bipolar disorder, but has been noncompliant with outpatient treatment and medications. Would recommend Depakote, but he is not sure if he is willing to accept mood stabilizing medication at this time. We will continue risperidone 1 mg daily at bedtime, and we'll check fasting labs tomorrow. He will need ongoing education about his diagnosis and the risks of continued noncompliance with treatment. Recommend outpatient psychiatric follow-up and therapy. Recommend family meeting with girlfriend and mother. Need to ensure he will not of access to guns after discharge. Every 15 minute checks and encourage participation in unit groups and programming. Work on discharge safety plan. 11/20 - Continue current meds. Will increase tomorrow if tolerating. 11/21 - Increase Risperdal to 1.5 mg HS - Add Depakote DR 250 mg. BID titrating as tolerated - Family meeting with mother and girlfriend held, and second meeting scheduled with girlfriend for Thursday. 11/22 - 11/23 - Continue current meds. 11/24 Family meeting today. Discharge planning difficult until MA in place. Patient agreeable to titrate Depakote but will wait to see how patient tolerates Risperdal increase. 11/25 - Increase Depakote to 500 mg. BID 11/26 - Attempt to reschedule meeting with girlfriend, as they continue to have a volatile relationship, and he lives with her. 11/27 - Continue current meds - Depakote level on 12/02 11/28 - Will draw depakote level on 12/01 prior to discharge 11/29 -Continue current medication -Depakote level on 12/01 (2) Opiate misuse Patient was taking opiate pain meds from friends and the emergency room. We will not continue this here, due to ongoing substance abuse and as it was intended for short-term treatment of pain. We will offer Tylenol and ibuprofen as needed. (3) Cannabis abuse Patient has been educated about the risks of ongoing cannabis use, including exacerbation of his mood disorder and psychotic symptoms, and the recommendations for abstinence. (4) Alcohol abuse The patient's AUDIT score and history suggest problematic drinking (Zone III WHO ). Brief intervention was offered and patient was poorly receptive. He minimizes his substance abuse, and is not willing to make changes. Intervention was greater than 5 min in length. Brief interventions include: 1. Assess Readiness to Quit, 2. Advise: Help Patient to Reduce or Abstain from Alcohol, 3. Agree: Set Specific, Feasible Goals, 4. Assist: Anticipate barriers, Problem-Solving Solutions. Social work to 5. Arrange: Referrals to appropriate treatment. Summary of intervention: The patient is in precontemplation stage with regards to transtheoretical model of change. The patient is advised to decrease alcohol consumption due to depressant effects and risk of interactions with prescription medications. The patient will be provided with recovery materials to continue to education self on how to cope with their condition without drinking. (5) Laceration Complete course of Keflex and Cipro. Discussed case with Dr. Trixie Palomares, who saw him in the emergency room and again yesterday, and she reports he will need a dressing change (wound care nurse consulted) tomorrow, continue antibiotics awaiting sensitivity, and will need sutures removed in 2 days. He will not likely need further plastic surgery follow up. 11/20 Suture removal tomorrow 11/21 11/21 - Remove sutures today Discharge / Aftercare Planning Psychiatrist: Name: [facility]-Intake with Wendy Mendoza Date of Appointment: Dec 02, 2016 Time of Appointment: 2:00pm Therapist: Name: Scottie Wiseman-Nat TORRES Date of Appointment: Dec 01, 2016 Time of Appointment: 10:30am Appointment Notes: [address] [place] [address]-[facility] [employer] Brazer Assembler: Name: SHELLEY Date of Appointment: Dec 10, 2016 Time of Appointment: 2:00pm Specialist: Name: Dr Mccabe-Dentist Date of Appointment: Dec 05, 2016 Time of Appointment: 9:45am Appointment Notes: [facility] Visit Code E&M Code: 27071 Inventory Assets Strengths: "I'm athletic, I can shoot. Risk Factors Assessment Male: Yes : Yes /single/: No Higher / Fall in social status: No Access to guns: No Health problems: Yes Mental Health Diagnoses: Yes Substance use disorders: Yes Previous attempt: Yes Family history of suicide: No Previous psychiatric stay: Yes Smoker: Yes Protective Factors Assessment Samaritan beliefs: Yes : No Responsible for young children: No Employed: Yes Stable relationships: Yes Supportive family: Yes Good rapport with provider: No Data Vital Signs Last 24 Hrs: Date Time Temp Pulse Resp B/P (MAP) Pulse Ox O2 Delivery O2 Flow Rate FiO2 11/29/16 06:50 36.5 71 17 105/65 90 116/76 Problem Qualifiers (1) Bipolar disorder, unspecified: Active/Remission status: currently active Current bipolar episode type: mixed Current episode severity: severe Psychotic features: without psychotic features Qualified Codes: F31.63 - Bipolar disorder, current episode mixed, severe, without psychotic features
[2016-11-29] MEDS: RISPERIDONE 0.5 MG TAB PO SCH (23:00)
[2016-11-30 07:03] VITALS: BP_SYST 114; BP_SYST 116; BP_DIAS 72; BP_DIAS 74; PULSE 69; PULSE 96; TEMP 36.5
[2016-11-30] MEDS: DIVALPROEX SODIUM 500 MG DELAY RELEASE TAB PO SCH ×2 (08:17→23:00)
[2016-11-30] MEDS: NAPROXEN 250 MG TAB PO SCH ×2 (08:17→23:00)
--- NOTE | 2016-11-30 15:09 | Psychiatric Progress Notes ---
Progress Note Date of Service Nov 30, 2016. Interval History 46-year-old white male who lives in [place] with his girlfriend, has a history of bipolar disorder not otherwise specified, treatment noncompliance, alcohol, cannabis, and opiate abuse, who presented to the emergency room with police for erratic behavior and was admitted voluntarily after he endorsed suicidal thoughts with a plan to hang himself. He also has a forehead laceration he sustained 8 days ago after he slipped and fell in a [place] and hit his head, which became infected, and is being treated by Dr. Trixie Palomares. He does not currently have any outpatient psychiatric providers, does not take medications, and presents with mood lability, agitation, and suicidal thoughts. Chief Complaint "Feel good". Subjective Patient was seen & assessed interval progress reviewed with Nursing. Patient reports that mood is good overall. Tolerating medications well. Has had an increased appetite which he attributes to medication. Slept well. Improved insight into need to remain on medication. Looking forward to upcoming discharge. Review of Systems Psych: denies symptoms other than stated above Constitutional: increased appetite Cardiovascular: denied GI: denied Neurologic: denied Remainder of 10 body systems also reviewed and denied other than noted above. Sleep Information Total Hours of Sleep: 5.00 Meal Information Percent of Breakfast Consumed: 95 Percent of Lunch Consumed: 100 Percent of Dinner Consumed: 100 Mental Status Exam During interview pt is: alert and oriented, cooperative Appearance: appropriately dressed, disheveled, other (large healing laceration on his forehead, no signs of infection) Eye contact is: fair Motor behavior is: steady gait & station, no abnormal motor movements Speech: normal in rate, rhythm & volume Affect: euthymic, other (expansive, but improved from admission) Mood is: other (Doesn't know because he just got up) Thought process: goal directed Thought content: reality based without delusions Suicidal thought are: denied Homicidal thoughts are: denied Hallucinations: denies auditory, denies visual Cognition: memory grossly intact, language grossly intact Intelligence estimated to be: consistent with level of education Insight: impaired Judgement: impaired Impression Becoming restless after 10 days in the hospital. I have explained to him that more time on the meds under controlled circumstances increases his chance of success after discharge, and he agrees to stay until Thursday. Will draw depakote level on Thursday and make any adjustments necessary, but plan for discharge then. That will allow family time to make arrangements to pick him up Plan (1) Bipolar disorder, unspecified Patient has history of bipolar disorder, but has been noncompliant with outpatient treatment and medications. Would recommend Depakote, but he is not sure if he is willing to accept mood stabilizing medication at this time. We will continue risperidone 1 mg daily at bedtime, and we'll check fasting labs tomorrow. He will need ongoing education about his diagnosis and the risks of continued noncompliance with treatment. Recommend outpatient psychiatric follow-up and therapy. Recommend family meeting with girlfriend and mother. Need to ensure he will not of access to guns after discharge. Every 15 minute checks and encourage participation in unit groups and programming. Work on discharge safety plan. 11/20 - Continue current meds. Will increase tomorrow if tolerating. 11/21 - Increase Risperdal to 1.5 mg HS - Add Depakote DR 250 mg. BID titrating as tolerated - Family meeting with mother and girlfriend held, and second meeting scheduled with girlfriend for Thursday. 11/22 - 11/23 - Continue current meds. 11/24 Family meeting today. Discharge planning difficult until MA in place. Patient agreeable to titrate Depakote but will wait to see how patient tolerates Risperdal increase. 11/25 - Increase Depakote to 500 mg. BID 11/26 - Attempt to reschedule meeting with girlfriend, as they continue to have a volatile relationship, and he lives with her. 11/27 - Continue current meds - Depakote level on 12/02 11/28 - Will draw depakote level on 12/01 prior to discharge 11/29 -Continue current medication -Depakote level on 12/01 11/30 -Depakote level on 12/01 -[facility] (2) Opiate misuse Patient was taking opiate pain meds from friends and the emergency room. We will not continue this here, due to ongoing substance abuse and as it was intended for short-term treatment of pain. We will offer Tylenol and ibuprofen as needed. (3) Cannabis abuse Patient has been educated about the risks of ongoing cannabis use, including exacerbation of his mood disorder and psychotic symptoms, and the recommendations for abstinence. (4) Alcohol abuse The patient's AUDIT score and history suggest problematic drinking (Zone III WHO ). Brief intervention was offered and patient was poorly receptive. He minimizes his substance abuse, and is not willing to make changes. Intervention was greater than 5 min in length. Brief interventions include: 1. Assess Readiness to Quit, 2. Advise: Help Patient to Reduce or Abstain from Alcohol, 3. Agree: Set Specific, Feasible Goals, 4. Assist: Anticipate barriers, Problem-Solving Solutions. Social work to 5. Arrange: Referrals to appropriate treatment. Summary of intervention: The patient is in precontemplation stage with regards to transtheoretical model of change. The patient is advised to decrease alcohol consumption due to depressant effects and risk of interactions with prescription medications. The patient will be provided with recovery materials to continue to education self on how to cope with their condition without drinking. (5) Laceration Complete course of Keflex and Cipro. Discussed case with Dr. Trixie Palomares, who saw him in the emergency room and again yesterday, and she reports he will need a dressing change (wound care nurse consulted) tomorrow, continue antibiotics awaiting sensitivity, and will need sutures removed in 2 days. He will not likely need further plastic surgery follow up. 11/20 Suture removal tomorrow 11/21 11/21 - Remove sutures today Discharge / Aftercare Planning Psychiatrist: Name: [facility]Intake with Wendy Mendoza Date of Appointment: Dec 02, 2016 Time of Appointment: 2:00pm Therapist: Name: [facility]-Nat TORRES Date of Appointment: Dec 01, 2016 Time of Appointment: 10:30am Appointment Notes: [address] [place] [address] [employer] Substation Manager: Name: SHELLEY Date of Appointment: Dec 10, 2016 Time of Appointment: 2:00pm Specialist: Name: Dr Mccabe-Dentist Date of Appointment: Dec 05, 2016 Time of Appointment: 9:45am Appointment Notes: [facility] Visit Code E&M Code: 16920 Inventory Assets Strengths: "I'm athletic, I can shoot. Risk Factors Assessment Male: Yes : Yes /single/: No Higher / Fall in social status: No Access to guns: No Health problems: Yes Mental Health Diagnoses: Yes Substance use disorders: Yes Previous attempt: Yes Family history of suicide: No Previous psychiatric stay: Yes Smoker: Yes Protective Factors Assessment Evangelical beliefs: Yes : No Responsible for young children: No Employed: Yes Stable relationships: Yes Supportive family: Yes Good rapport with provider: No Data Vital Signs Last 24 Hrs: Date Time Temp Pulse Resp B/P (MAP) Pulse Ox O2 Delivery O2 Flow Rate FiO2 11/30/16 07:03 36.5 69 18 114/72 96 116/74 Problem Qualifiers (1) Bipolar disorder, unspecified: Active/Remission status: currently active Current bipolar episode type: mixed Current episode severity: severe Psychotic features: without psychotic features Qualified Codes: F31.63 - Bipolar disorder, current episode mixed, severe, without psychotic features
[2016-11-30] MEDS: RISPERIDONE 0.5 MG TAB PO SCH (23:00)
[2016-12-01] MEDS: RISPERIDONE 0.5 MG TAB PO PRN
[2016-12-01 07:00] VITALS: BP_SYST 118; BP_SYST 120; BP_DIAS 74; BP_DIAS 78; PULSE 76; PULSE 97; TEMP 36.3
[2016-12-01] MEDS: NAPROXEN 250 MG TAB PO SCH (08:55)
[2016-12-01] MEDS: DIVALPROEX SODIUM 500 MG DELAY RELEASE TAB PO SCH (08:55)
[2016-12-01] MEDS ORDERED: DPKEC500 PO (09:16)
[2016-12-01] MEDS ORDERED: RISP-99 PO (09:16)
--- NOTE | 2016-12-01 09:35 | Discharge Instructions ---
Discharge Information Report Includes Report will include the: Discharge Instructions & Summary Admission Admission Date / Time: Nov 18, 2016 at 21:57 Reason for Admission: Bipolar Discharge Discharge Diagnosis / Problem: bipolar disorder type I Condition at Discharge: Good Discharge Goals Goal(s): Improve function, Improve disease control, Learn about illness, Therapeutic intervention, Specific goals (refer for outpatient treatment, start mood stabilizing medication) Activity Recommendations Activity Limitations: per Instructions/Follow-up section . Instructions / Follow-Up Instructions / Follow-Up . SPECIAL CARE INSTRUCTIONS: 1. Follow through with your scheduled aftercare appointments. If unable to keep an appointment, please call to reschedule. 2. Take your medication only as prescribed. Medication should not be changed or stopped without the approval of your doctor. In the event of worsening symptoms or concerns about side effects, contact your doctor immediately. 3. Utilize new healthy coping skills, anger management skills, and stress management skills learned during your hospitalization. Journal feelings and process them with a support person. Identify stressors or situations that may result in relapse, deterioration or inappropriate behaviors and develop a plan to deal with those issues. 4. If your coping skills are ineffective and you are in crisis, contact your outpatient providers for direction. If unable to reach your providers, please call the CAN HELP LINE AT or go to the closest Emergency Room. 5. Avoid alcohol and un-prescribed drugs. 6. You have been provided with the Mental Health Advance Directives Pamphlet for your review. AFTERCARE APPOINTMENTS: * Please call your insurance company prior to your scheduled appointment to confirm your aftercare providers are covered. Take your insurance information to your appointments. . Discharge / Aftercare Planning Primary Care Physician: Name: None Psychiatrist: Name: [facility]-Intake with Wendy Mendoza Date of Appointment: Dec 02, 2016 Time of Appointment: 2:00pm Therapist: Name Of Therapist: Scottie Wiseman-Nat TORRES Date of Appointment: Dec 01, 2016 Time of Appointment: 10:30am Appointment Comments: [address] [facility] [employer]sh[employer] Adjuster: Name: SHELLEY Date of Appointment: Dec 10, 2016 Time of Appointment: 2:00pm Specialist: Name: Dr Mccabe-Dentist Date of Appointment: Dec 05, 2016 Time of Appointment: 9:45am Appointment Notes: [address] [place] [address] . Follow-Up Care Plan for Follow-Up Care: See above. Current Hospital Diet Patient's current hospital diet: Regular Diet Discharge Diet Recommended Diet: Regular Diet Procedures Procedures Performed: Yes List Procedure(s) Performed: suture removal Pending Studies Pending Studies at Discharge: No Medical Emergencies . Who to Call and When: Medical Emergencies: For questions or emergencies related to your hospital stay, please contact the Inpatient Behavioral Health Unit at [phone]. A automatic buffer is on-call 27/10 for the Behavioral Health Unit for emergencies At any time you feel your situation is an emergency, you may also call 911 immediately. . Non-Emergent Contact Non-Emergency issues call your: Primary Care Provider, Psychiatrist, Therapist Past History Medical & Surgical History: (1) Cannabis abuse (2) Laceration (3) Opiate misuse Advance Directives Existing Advance Directive: No Do You Have an Existing Mental: No Existing Living Will: No Existing Power of Developer Analyst: No Advance Directives Info Given: To Pt/S.O. Advance Directives Reason: Declines as Mental Health Visit. Discharge Summary Admission HPI Per the Admitting provider: Figueroa has had multiple emergency room visits in the past week, initially seen on 11/11 after he slipped in a [place] and hit his head and sustained a 10 cm laceration on his forehead, which was sutured and he was started on Keflex. He then returned to the ER 11/16 with forehead swelling, purulent discharge, fever, chills, and shakes, and reported that he been drinking beer. He was seen by Dr. Trixie Palomares, plastic surgeon; his forehead had a 5 cm area of induration with significant fluctuance and surrounding erythema, but sutures were intact, so it was drained at the bedside. Wound culture was obtained, and results show gram-negative bacilli. Blood cultures 2 show pulmonary results of no growth. He was given IV antibiotics in the emergency room, given a prescription for Cipro 500 mg twice a day for 7 days and instructed to complete the course of Keflex as well. He was to follow-up with the plastic surgeon, Dr. Trixie Palomares yesterday, but then re-presented to the emergency room yesterday with police for a mental health evaluation. It was unclear exactly what occurred that resulted in police being called. He reported anxiety, and said that "if he didn't believe in God he would be ," and said he had been "beating himself up mentally". He said he had "self medicated" by mixing his pain medications with drinking in the past. He said his memory wasn't clear and it is a struggle for him to focus. He said he had become distraught when he could not locate the plastic surgeon's office for his follow-up appointment, and said he "got mad and took my shirt off because it was hot. I was having a bad day. I just lost it." He reports being in and out of [facility] during his 20's and maybe 30's for "stupid stuff, drinking and being young and stupid." Currently, patient is on no psychiatric medications with no active providers. He currently has no insurance and no benefits from his employer and states he had tried to fill out paperwork in the past, but "it just never happened". He could not recall all of the medications that he tried, but he states he has never taking anything consistently because he did not like the side effects of the medications. Denies any other medical issues and said "I don't like doctors and wouldn't go to them anyways, but my girlfriend wants me to get some help". He was cooperative with the admission interview, but struggled to stay on topic and then stated he didn't want to talk about his history any more. Refused to sign SHASHANK's on admission, saying "If you want information, get it off facebook like everyone else." Agreed to take risperdal 1 mg in hopes it would help with sleep. Reports decreased sleep, due to restlessness, struggles with concentration due to racing thoughts, but reports good appetite. He admitted to drinking beer ("self medicating a couple days a week"), and smoking marijuana , last use on 11/15/2016. His drug screen was positive for opiates. He was noted to be pressured and tangential, but denied hallucinations and thoughts of harming others. He took risperidone 1 mg last night, and slept 5-1/2 hours. Today, the patient was seen in his room where he remains in bed. He is more organized than yesterday, but remains a limited historian. He states that he has struggled with mood lability all his life, and has never wanted treatment, as "this is just me, everyone says I need meds, but I don't think so." He reports frequent mood swings between depressed, euthymic mood, and irritable mood, but is unable to state how often this occurs. He endorses worsening mood recently, in the context of multiple stressors, stating he is hopeless, has negative thoughts, says "the aunts are stacked against you, it is not can get any better, I'm just getting older." Stressors include legal problems, including a felony charge she says he received 13 years ago, claiming he was "set up." He states his father in 1970, and he never had a father figure growing up, his 14-year-old son is doing drugs and getting in trouble, and although he's working, he does not make enough money and there is financial strain. He said "everyone thinks I'm crazy," and goes back and forth between stating he needs to get help, saying "I can't do it on my own, I need help," and stating he does not want treatment. He says he has no idea why he is in the hospital, "just went to the doctor's office and they act like a had a conniption or something." He says he does not know why police were called or why they brought him to the hospital. He says his mother went with him to his plastic surgery appointment yesterday, and he became upset when he could not locate the correct doctor's office. He also says it was very hot out, and he was feeling overwhelmed. He says he was having trouble thinking, and could not fill out the paperwork in the doctor's office. He says he actually saw the doctor, but then the police came and took him to the police station, and then brought him here. He understands he's been diagnosed with bipolar disorder, and describes "roller coaster moods," with frequent highs and lows. He reports poor sleep recently, states he "fights it," and stays up late watching TV. He says his girlfriend has been encouraging him to get treatment, and admits that he's had suicidal thoughts, stating he's had them all his life, and they come and go. He believes in God which is protective, and states "if I didn't believe in God, I'd actually go through with it." He is not sure if he is willing to accept treatment, stating "I'd treat myself, I do therapy for myself , I'm outdoorsy, an adrenaline junkie." He also says "I got to do something about it, can't do it on my own." Spoke with Dr. Palomares who states the patient was agitated and disorganized in their office yesterday, was unable to fill out paperwork, was throwing things and making suicidal statements. He left abruptly, and they then saw him outside walking through the bushes without a shirt on. They had called police, and they accompanied him back into the office where she changed his packing. He initially refused to come to the ER, so they took him to the police station. Admission Exam Per the Admitting provider: Please see admission H&P. Consultations Wound care nurse Hospital Course (1) Bipolar disorder, unspecified Patient has history of bipolar disorder, but has been noncompliant with outpatient treatment and medications. Would recommend Depakote, but he is not sure if he is willing to accept mood stabilizing medication at this time. We will continue risperidone 1 mg daily at bedtime, and we'll check fasting labs tomorrow. He will need ongoing education about his diagnosis and the risks of continued noncompliance with treatment. Recommend outpatient psychiatric follow-up and therapy. Recommend family meeting with girlfriend and mother. Need to ensure he will not of access to guns after discharge. Every 15 minute checks and encourage participation in unit groups and programming. Work on discharge safety plan. 11/20 - Continue current meds. Will increase tomorrow if tolerating. 11/21 - Increase Risperdal to 1.5 mg HS - Add Depakote DR 250 mg. BID titrating as tolerated - Family meeting with mother and girlfriend held, and second meeting scheduled with girlfriend for Thursday. 11/22 - 11/23 - Continue current meds. 11/24 Family meeting today. Discharge planning difficult until MA in place. Patient agreeable to titrate Depakote but will wait to see how patient tolerates Risperdal increase. 11/25 - Increase Depakote to 500 mg. BID 11/26 - Attempt to reschedule meeting with girlfriend, as they continue to have a volatile relationship, and he lives with her. 11/27 - Continue current meds - Depakote level on 12/02 11/28 - Will draw depakote level on 12/01 prior to discharge 11/29 - Continue current medication - Depakote level on 12/01 11/30 - Depakote level on 12/01 - appointment with [facility] for intake on 12/01 12/01 - Discharge to home. Has therapy appointment at 10am at [facility]. - Depakote level 58. (2) Opiate misuse Patient was taking opiate pain meds from friends and the emergency room. We will not continue this here, due to ongoing substance abuse and as it was intended for short-term treatment of pain. We will offer Tylenol and ibuprofen as needed. (3) Cannabis abuse Patient has been educated about the risks of ongoing cannabis use, including exacerbation of his mood disorder and psychotic symptoms, and the recommendations for abstinence. (4) Alcohol abuse The patient's AUDIT score and history suggest problematic drinking (Zone III WHO ). Brief intervention was offered and patient was poorly receptive. He minimizes his substance abuse, and is not willing to make changes. Intervention was greater than 5 min in length. Brief interventions include: 1. Assess Readiness to Quit, 2. Advise: Help Patient to Reduce or Abstain from Alcohol, 3. Agree: Set Specific, Feasible Goals, 4. Assist: Anticipate barriers, Problem-Solving Solutions. Social work to 5. Arrange: Referrals to appropriate treatment. Summary of intervention: The patient is in precontemplation stage with regards to transtheoretical model of change. The patient is advised to decrease alcohol consumption due to depressant effects and risk of interactions with prescription medications. The patient will be provided with recovery materials to continue to education self on how to cope with their condition without drinking. (5) Laceration Complete course of Keflex and Cipro. Discussed case with Dr. Trixie Palomares, who saw him in the emergency room and again yesterday, and she reports he will need a dressing change (wound care nurse consulted) tomorrow, continue antibiotics awaiting sensitivity, and will need sutures removed in 2 days. He will not likely need further plastic surgery follow up. 11/20 - Suture removal tomorrow 11/21 11/21 - Remove sutures today 12/01 - Laceration is healing well. No follow up with plastic surgery needed. Risk Factors Assessment Male: Yes : Yes /single/: No Higher / Fall in social status: No Access to guns: No (confirmed with girlfriend and mother) Health problems: Yes Mental Health Diagnoses: Yes Substance use disorders: Yes Previous attempt: Yes Family history of suicide: No Previous psychiatric stay: Yes Hopelessness: No Smoker: Yes Protective Factors Assessment Judaism beliefs: Yes : No Responsible for young children: No Employed: Yes Stable relationships: Yes Supportive family: Yes Good rapport with provider: No Absence of risk factors above: Yes (risk factors were mitigated by admission to the hospital, starting medications for bipolar disorder, educating the patient about his diagnosis and recommended treatment, educating the patient about the risks of substance abuse and the recommendations for abstinence, involving his mother and girlfriend who are his primary supports in a family meeting, involving him in groups and therapy on the unit, referring him for outpatient therapy and psychiatric follow-up, assisting him to apply for insurance, working on healthy coping skills and completing a discharge safety plan. The patient's mood has stabilized, he is taking medications without difficulty, and says they have been helpful, and is willing to follow-up with outpatient providers. He is consistently denying suicidal thoughts, and is requesting discharge. He is no longer at acute risk of harm to himself, so can be managed as an outpatient at this time.) Day of Discharge Assessment Hospital Course: On admission, the patient was started on risperidone, and a trial of Depakote was discussed, but initially he was not willing to start it. He was also continued on his antibiotics for his forehead laceration, and his case was discussed with Dr. Palomares, the plastic surgeon who had seen him in the emergency room when it became infected, and had seen him in her clinic the day of admission. A wound consult was obtained, he completed both antibiotics, and his sutures were removed in the hospital. His wound appeared to be healing well. His risperidone was increased to 1.5 mg at bedtime, and he eventually agreed to a trial of Depakote, which he tolerated without difficulty. His trough level on the day of discharge is 58. He continued to have manic symptoms , with racing thoughts, increased energy, elevated mood, mood lability, but all of the symptoms improved throughout his stay. He was eating and sleeping well, attending groups and participating, and involved in discharge planning. He had a family meeting with his mother and girlfriend, which was difficult as all were yelling and talking over one another. He stated his primary problems were anxiety, poor sleep, impulsiveness, and anger. His mother shared that he been on both Depakote and lithium in the past, but did not take either one for very long. Both his mother and girlfriend encouraged him to take a mood stabilizer, and he ultimately agreed to a trial of Depakote. He was assisted in applying for medical assistance, which she received during his hospitalization, and he was referred for aftercare. His family confirmed that he did not have access to guns. He was able to process his long history of untreated bipolar disorder with staff, as well as his resistance to engaging in treatment or accepting treatment recommendations in the past, and all of the problems that have caused for him in his life. His mood stabilized, and suicidal thoughts resolved. Day of Discharge Assessment: The patient reports good mood, feels it has stabilized, and thoughts are no longer racing. He reports good sleep and appetite, and denies side effects to medications. He notes that the nervous shaking of his legs has also resolved. He denies thoughts of harming himself or anyone else, and feels ready for discharge. He will be following up with his therapist this morning after discharge, and has an intake at [facility] tomorrow. He denies any concerns with discharge, and is able to review his safety plan. Laboratory Test 11/18/16 18:15 11/18/16 19:20 11/20/16 07:16 12/01/16 08:01 Urine Color YELLOW Urine Appearance CLEAR Urine pH 5.5 Urine Specific [place] 1.023 Urine Protein NEG Urine Glucose (UA) NEG Urine Ketones NEG Urine Occult Blood NEG Urine Nitrite NEG Urine Bilirubin NEG Urine Urobilinogen NEG Urine Leukocyte Esterase NEG Urine Synthetic Stimulants see note Urine Opiates Screen POS Urine Codeine Confirmation (GC/MS) NEGATIVE Urine Morphine Confirm (GC/MS) 170 Urine Hydrocodone Confirm (GC/MS) NEGATIVE Urine Norhydrocodone NEGATIVE Urine Noroxycodone NEGATIVE Urine Oxycodone Confirm (GC/MS) NEGATIVE Urine Oxymorphone Confirm (GC/MS) NEGATIVE Urine Methadone, Qualitative NEG Urine Hydromorphone Confirm (GC/MS) NEGATIVE Urine Barbiturates NEG Urine Phencyclidine (PCP) Level NEG Ur Amphetamine/Methamphetamine NEG MDMA (Ecstasy) Screen NEG Urine Benzodiazepines Screen NEG Urine Cocaine Metabolite NEG Cannabinoids Comment see note Urine Synthetic Cannabinoids NEGATIVE Ur Synthetic Cannabinoids Confirm Urine Marijuana (THC) NEG White Blood Count 5.02 Red Blood Count 4.99 Hemoglobin 15.1 Hematocrit 42.8 Mean Corpuscular Volume 85.8 Mean Corpuscular Hemoglobin 30.3 Mean Corpuscular Hemoglobin Concent 35.3 Platelet Count 236 Mean Platelet Volume 9.0 Neutrophils (%) (Auto) 62.1 Lymphocytes (%) (Auto) 26.9 Monocytes (%) (Auto) 8.0 Eosinophils (%) (Auto) 2.6 Basophils (%) (Auto) 0.2 Neutrophils # (Auto) 3.12 Lymphocytes # (Auto) 1.35 Monocytes # (Auto) 0.40 Eosinophils # (Auto) 0.13 Basophils # (Auto) 0.01 RDW Standard Deviation 40.3 RDW Coefficient of Variation 12.9 Immature Granulocyte % (Auto) 0.2 Immature Granulocyte # (Auto) 0.01 Sodium Level 139 Potassium Level 3.8 Chloride Level 106 Carbon Dioxide Level 28 Anion Gap 5.0 Blood Urea Nitrogen 15 Creatinine 1.00 Est Creatinine Clear Calc Drug Dose 97.2 Estimated GFR () 103.4 Estimated GFR (Non- 89.2 BUN/Creatinine Ratio 14.7 Random Glucose 94 Calcium Level 9.3 Total Bilirubin 1.1 Direct Bilirubin 0.2 Aspartate Amino Transferase (AST) 23 Alanine Aminotransferase (ALT) 30 Alkaline Phosphatase 67 Total Protein 7.6 Albumin 3.5 Thyroid Stimulating Hormone (TSH) 1.160 Salicylates Level < 1.7 Acetaminophen Level < 2 Ethyl Alcohol mg/dL < 3.0 Fasting Glucose 106 Triglycerides Level 139 Cholesterol Level 151 HDL Cholesterol 35 LDL Cholesterol, Calculated 88 VLDL Cholesterol, Calculated 28 Cholesterol/HDL Ratio 4.3 Valproic Acid Level 58 Total Time Total Time Spent (min): Greater than 30 minutes Total Time Included: examination of the patient, discharge planning, medication reconciliation Tobacco Cessation at Discharge Smoking Status: Former Smoker FDA approved Prescription: non-smoker Problem Qualifiers (1) Bipolar disorder, unspecified: Active/Remission status: currently active Current bipolar episode type: mixed Current episode severity: severe Psychotic features: without psychotic features Qualified Codes: F31.63 - Bipolar disorder, current episode mixed, severe, without psychotic features
== END 2016-12-01 09:55 | disposition home or self-care (01) | DRG 885 ==
LOC: EDBD 18:05 → C.EDA 18:07 → C.MHU 21:57 → ENRESERV 22:16
PROVIDERS: ADMIT Student in an Organized Health Care Education/Training Program; ATTEND Psychiatry & Neurology Psychiatry
DX: F31.63 Bipolar disorder, current episode mixed, severe, without psychotic features (principal); R45.851 Suicidal ideations; F10.20 Alcohol dependence, uncomplicated; F12.10 Cannabis abuse, uncomplicated; F11.10 Opioid abuse, uncomplicated; F19.10 Other psychoactive substance abuse, uncomplicated; L08.9 Local infection of the skin and subcutaneous tissue, unspecified; S01.81XD Laceration without foreign body of other part of head, subsequent encounter; W16.112D Fall into natural body of water striking water surface causing other injury, subsequent encounter; Z91.14 Patient's other noncompliance with medication regimen; Z91.19 Patient's noncompliance with other medical treatment and regimen; Z65.3 Problems related to other legal circumstances; Z91.5 Personal history of self-harm; Z87.891 Personal history of nicotine dependence; Z81.3 Family history of other psychoactive substance abuse and dependence; Z79.1 Long term (current) use of non-steroidal anti-inflammatories (NSAID)